=== PATIENT | female | born 1995 | race Caucasian/White ===

== ENCOUNTER 2016-07-12 21:00 | Emergency (ER) | payer OTHER ==
[2016-07-12] MEDS ORDERED: Phenergan 25 MG INJ IV ONE (22:51)
[2016-07-12] MEDS ORDERED: Sodium Chloride 0.9% 1000 ML 1,000 ML IV STA (22:51)
[2016-07-12] MEDS ORDERED: Dulcolax 10 MG SUPP PR ONE (22:52)
[2016-07-12] MEDS ORDERED: CITROMA 296 ML PO ONE (22:52)
[2016-07-12] MEDS ORDERED: MILK OF MAGNESIA 30 ML PO ONE (22:52)
--- NOTE | 2016-07-12 22:58 | ERPHSYRPT ---
- History of Present Illness Time Seen by Provider: 07/12/16 22:45 Historian: patient, family (MOM) Exam Limitations: no limitations Patient Subjective Stated Complaint: pt states she has not had a good bm in 3 weeks, states that there have been approx 7 times in the last 3 weeks that she has had a very small bm. c/o pain in her lt side below ribs intermittently since saturday, migraine x1 week, n/v Triage Nursing Assessment: pt alert and oriented, answers questions approp. pt ambulatory with steady gait noted. skin pink warm and dry. respirations nonlabored with lungs cta. abd soft and nontender, bowel sounds present and hypo. Physician History: PT STATES HER LAST BM WAS 3 WEEKS AGO AND HAS VOMITED X10 SINCE 0500 TODAY WITHOUT BLOOD. PT ALSO C/O INTERMITTENT PAIN UNDER HER LEFT RIBS FOR THE PAST 5 DAYS AND MIGRAINE HEADACHES FOR THE PAST WEEK. PT HAS HAD DIFFICULTY WITH CONSTIPATION HER WHOLE LIFE. PT HAD A NORMAL EGD 3 YEARS AGO AND A NORMAL CT ABDOMEN/PELVIS 4 MONTHS AGO EXCEPT FOR CONSTIPATION. Allergies/Adverse Reactions: No Known Drug Allergies Allergy (Verified 07/12/16 22:37) Home Medications: Polyethylene Glycol 3350 17 gm [Miralax Powder 17GM PACKET] 17 gm PO DAILY [History] Hx Tetanus, Diphtheria Vaccination/Date Given: No Hx Influenza Vaccination/Date Given: No Hx Pneumococcal Vaccination/Date Given: No Immunizations Up to Date: No - Review of Systems Constitutional: No Fever Cardiac: Other (PAIN BELOW LEFT RIBS) Abdominal/Gastrointestinal: Vomiting, Constipation Neurological: Headache All Other Systems: Reviewed and Negative - Past Medical History Pertinent Past Medical History: No Neurological History: Other GI Medical History: Other Other Medical History: HAS HISTORY OF HEADACHES HAS BEEN WORKED UP FOR STOMACH PROBLEMS - Past Surgical History Past Surgical History: No Other Surgical History: endoscopy to check gastric samples. (Pt states I have a history of when I eat I get sick.) pt states unknown results - Social History Smoking Status: Current every day smoker How long have you smoked: 4years Exposure to second hand smoke: No Drug Use: none Patient Lives Alone: No - Female History Hx Last Menstrual Period: 2 weeks ago - Nursing Vital Signs Nursing Vital Signs: Initial Vital Signs Temperature 98.3 F Temperature Source Oral Pulse Rate 88 Respiratory Rate 18 Blood Pressure [] 122/63 Pain Intensity 4 - Physical Exam General Appearance: alert Eye Exam: PERRL/EOMI Ears, Nose, Throat Exam: pharynx normal, moist mucous membranes Neck Exam: normal inspection Respiratory Exam: lungs clear Cardiovascular Exam: normal heart sounds Gastrointestinal/Abdomen Exam: soft, normal bowel sounds Back Exam: normal range of motion Extremity Exam: normal inspection, No pedal edema Neurologic Exam: alert, cooperative Skin Exam: warm, dry SpO2 Interpretation: normal SpO2: 98 Oxygen Delivery: Room Air - Course Nursing assessment & vital signs reviewed: Yes - CT Exams Abdomen/Pelvis CT Interpretation: Tele-radiologist Report (NO ACUTE FINDINGS. MILD STOOL RETENTION.) Ordered Tests: Active Orders 24 hr Category Date Time Status IV Insertion STAT Care 07/12/16 22:51 Active ABDOMEN AND PELVIS W/0 CONTRAS [CT] Stat Exams 07/12/16 23:01 Taken AMYLASE Stat Lab 07/12/16 22:58 Completed CBC W DIFF Stat Lab 07/12/16 22:58 Completed CMP Stat Lab 07/12/16 22:58 Completed HCG QUALITATIVE,SERUM Stat Lab 07/12/16 22:58 Completed LIPASE Stat Lab 07/12/16 22:58 Completed MAG [MAGNESIUM] Stat Lab 07/12/16 22:58 Completed UA W/ MICROSCOPIC Stat Lab 07/12/16 23:45 Completed Urine Triage Profile Stat Lab 07/12/16 23:45 Completed Medication Summary Generic Name Dose Route Start Last Admin Trade Name Sosa PRN Reason Stop Dose Admin Ketorolac Tromethamine 30 mg 07/13/16 00:31 Toradol 30 Mg Injection IV 07/13/16 00:32 STAT ONE Discontinued Medications Generic Name Dose Route Start Last Admin Trade Name Freq PRN Reason Stop Dose Admin Bisacodyl 10 mg 07/12/16 22:52 07/12/16 23:49 Dulcolax 10 Mg Supp ID 07/12/16 22:53 10 mg STAT ONE Administration Sodium Chloride 1,000 mls @ 999 mls/hr 07/12/16 22:51 07/12/16 23:18 Sodium Chloride 0.9% 1000 Ml IV 07/12/16 23:51 999 mls/hr .Q1H1M STA Administration Sodium Chloride Confirm 07/12/16 23:12 Sodium Chloride 0.9% 1000 Ml Administered 07/12/16 23:13 Dose 1,000 mls @ ud .ROUTE .STK-MED ONE Magnesium Citrate 296 ml 07/12/16 22:52 07/12/16 23:17 Citroma 296 Ml PO 07/12/16 22:53 296 ml STAT ONE Administration Magnesium Citrate Confirm 07/12/16 23:13 Citroma 296 Ml Administered 07/12/16 23:14 Dose 296 ml .ROUTE .STK-MED ONE Magnesium Hydroxide 60 ml 07/12/16 22:52 07/12/16 23:17 Milk Of Magnesia 30 Ml PO 07/12/16 22:53 60 ml STAT ONE Administration Magnesium Hydroxide Confirm 07/12/16 23:12 Milk Of Magnesia 30 Ml Administered 07/12/16 23:13 Dose 30 ml .ROUTE .STK-MED ONE Magnesium Hydroxide Confirm 07/12/16 23:23 Milk Of Magnesia 30 Ml Administered 07/12/16 23:24 Dose 30 ml .ROUTE .STK-MED ONE Promethazine HCl 12.5 mg 07/12/16 22:51 07/12/16 23:18 Phenergan 25 Mg Inj IV 07/12/16 22:52 12.5 mg STAT ONE Administration Promethazine HCl Confirm 07/12/16 23:12 Phenergan 25 Mg Inj Administered 07/12/16 23:13 Dose 25 mg .ROUTE .STK-MED ONE Lab/Rad Data: Laboratory Result Diagrams 07/12/16 22:58 07/12/16 22:58 Laboratory Results 07/12/16 07/12/16 07/12/16 Range/Units 23:45 23:45 22:58 WBC (4.0-10.5) K/mm3 RBC (4.1-5.4) M/mm3 Hgb (12.0-16.0) gm/dl Hct (35-47) % MCV (78-100) fl MCH (26-32) pg MCHC (32-36) g/dl RDW (11.5-14.0) % Plt Count (150-450) K/mm3 MPV (6-9.5) fl Gran % (36.0-66.0) % Lymphocytes % (24.0-44.0) % Monocytes % (0.0-12.0) % Eosinophils % (0.00-5.0) % Basophils % (0.0-0.4) % Basophils # (0-0.4) Sodium (136-145) mEq/L Potassium (3.5-5.1) mEq/L Chloride (98-107) mEq/L Carbon Dioxide (21-32) mEq/L Anion Gap (5-15) MEQ/L BUN (9-20) mg/dL Creatinine (0.55-1.30) mg/dl Estimated GFR ML/MIN Glucose (70-110) MG/DL Calcium (8.5-10.1) mg/dL Magnesium (1.8-2.4) mg/dL Total Bilirubin (0.2-1.0) mg/dL AST (15-37) U/L ALT (12-78) U/L Alkaline Phosphatase (46-116) U/L Serum Total Protein (6.4-8.2) gm/dL Albumin (3.4-5.0) g/dL Amylase (25-115) U/L Lipase (73-393) U/L Serum , Qual NEGATIVE (Negative) Ur Collection Type CLEAN CATCH Urine Color DARK YELLOW (YELLOW) Urine Appearance SLIGHTLY CLOUDY (CLEAR) Urine pH 7.0 (5-6) Ur Specific [place] 1.020 (1.005-1.025) Urine Protein 30 (Negative) Urine Glucose (UA) NEGATIVE (NEGATIVE) mg/dL Urine Ketones NEGATIVE (NEGATIVE) Urine Nitrite NEGATIVE (NEGATIVE) Urine Bilirubin NEGATIVE (NEGATIVE) Urine Urobilinogen 0.2 (0-1) mg/dL Urine WBC (Auto) TRACE (NEGATIVE) Urine RBC (Auto) NEGATIVE (0-5) Shola/ul Urine Microscopic WBC 0-2 (0-5) /HPF Ur Epithelial Cells FEW (FEW) /HPF Urine Bacteria FEW (NEGATIVE) /HPF Urine Mucus SLIGHT (NEGATIVE) /HPF Urine Opiates Level NEG. (NEGATIVE) Ur Methadone NEG. (NEGATIVE) Urine Barbiturates NEG. (NEGATIVE) Ur Phencyclidine (PCP) NEG. (NEGATIVE) Urine Amphetamine NEG. (NEGATIVE) U Benzodiazepine Level NEG. (NEGATIVE) Urine Cocaine NEG. (NEGATIVE) Urine Marijuana (THC) POS. (NEGATIVE) Specimen Received 07/12/16:2340 07/12/16 07/12/16 Range/Units 22:58 22:58 WBC 14.0 H (4.0-10.5) K/mm3 RBC 5.38 (4.1-5.4) M/mm3 Hgb 14.9 (12.0-16.0) gm/dl Hct 45.7 (35-47) % MCV 84.9 (78-100) fl MCH 27.7 (26-32) pg MCHC 32.6 (32-36) g/dl RDW 13.4 (11.5-14.0) % Plt Count 414 (150-450) K/mm3 MPV 11.7 H (6-9.5) fl Gran % 63.4 (36.0-66.0) % Lymphocytes % 25.9 (24.0-44.0) % Monocytes % 8.9 (0.0-12.0) % Eosinophils % 1.4 (0.00-5.0) % Basophils % 0.4 (0.0-0.4) % Basophils # 0.06 (0-0.4) Sodium 142 (136-145) mEq/L Potassium 4.0 (3.5-5.1) mEq/L Chloride 104 (98-107) mEq/L Carbon Dioxide 28.1 (21-32) mEq/L Anion Gap 13.6 (5-15) MEQ/L BUN 14 (9-20) mg/dL Creatinine 1.04 (0.55-1.30) mg/dl Estimated GFR > 60 ML/MIN Glucose 90 (70-110) MG/DL Calcium 9.1 (8.5-10.1) mg/dL Magnesium 2.0 (1.8-2.4) mg/dL Total Bilirubin 0.2 (0.2-1.0) mg/dL AST 10 L (15-37) U/L ALT 20 (12-78) U/L Alkaline Phosphatase 71 (46-116) U/L Serum Total Protein 7.4 (6.4-8.2) gm/dL Albumin 4.0 (3.4-5.0) g/dL Amylase 30 (25-115) U/L Lipase 101 (73-393) U/L Serum , Qual (Negative) Ur Collection Type Urine Color (YELLOW) Urine Appearance (CLEAR) Urine pH (5-6) Ur Specific [place] (1.005-1.025) Urine Protein (Negative) Urine Glucose (UA) (NEGATIVE) mg/dL Urine Ketones (NEGATIVE) Urine Nitrite (NEGATIVE) Urine Bilirubin (NEGATIVE) Urine Urobilinogen (0-1) mg/dL Urine WBC (Auto) (NEGATIVE) Urine RBC (Auto) (0-5) Shola/ul Urine Microscopic WBC (0-5) /HPF Ur Epithelial Cells (FEW) /HPF Urine Bacteria (NEGATIVE) /HPF Urine Mucus (NEGATIVE) /HPF Urine Opiates Level (NEGATIVE) Ur Methadone (NEGATIVE) Urine Barbiturates (NEGATIVE) Ur Phencyclidine (PCP) (NEGATIVE) Urine Amphetamine (NEGATIVE) U Benzodiazepine Level (NEGATIVE) Urine Cocaine (NEGATIVE) Urine Marijuana (THC) (NEGATIVE) Specimen Received - Departure Time of Disposition: 00:32 Departure Disposition: Home Clinical Impression: VOMITING, CONSTIPATION, MIGRAINE Condition: Fair Critical Care Time: No Instructions: Vomiting -- Adult, Migraine, Constipation Additional Instructions: FOLLOW UP WITH PRIVATE DOCTOR TOMORROW. Prescriptions: Promethazine HCl 25 mg [Phenergan 25 mg] 25 mg PO Q4H PRN PRN #14 tablet PRN Reason: Nausea/Vomiting
[2016-07-12 23:05] LABS: BASOPHIL % 0.4 % (0.0-0.4); Eosinophil % 1.4 % (0.00-5.0); Granulocytes % 63.4 % (36.0-66.0); Lymphocytes % 25.9 % (24.0-44.0); Mean Cell Volume 84.9 fl (78-100); Mean Corpuscular Hemoglobin 27.7 pg (26-32); Mean Platelet Volume 11.7 fl (6-9.5); Monocytes % 8.9 % (0.0-12.0); Platelet Count 414 K/mm3 (150-450); Red Blood Count 5.38 M/mm3 (4.1-5.4); Red Cell Distribution Width 13.4 % (11.5-14.0)
[2016-07-12] MEDS ORDERED: Phenergan 25 MG INJ ONE (23:12)
[2016-07-12] MEDS ORDERED: MILK OF MAGNESIA 30 ML ONE ×2 (23:12→23:23)
[2016-07-12] MEDS ORDERED: Sodium Chloride 0.9% 1000 ML 1,000 ML ONE (23:12)
[2016-07-12] MEDS ORDERED: CITROMA 296 ML ONE (23:13)
[2016-07-12 23:27] LABS: ALKALINE PHOSPHATASE 71 U/L (46-116); ANION GAP 13.6 MEQ/L (5-15); BILIRUBIN,TOTAL 0.2 mg/dL (0.2-1.0); BLOOD UREA NITROGEN 14 mg/dL (9-20); CHLORIDE 104 mEq/L (98-107); Carbon Dioxide 28.1 mEq/L (21-32); Glucose 90 MG/DL (70-110); LIPASE 101 U/L (73-393); SGOT/AST 10 U/L (15-37); SGPT/ALT 20 U/L (12-78); SODIUM 142 mEq/L (136-145); Total Protein 7.4 gm/dL (6.4-8.2)
[2016-07-12 23:36] VITALS: PULSE 88
[2016-07-13 00:08] LABS: Collection Type CLEAN CATCH
[2016-07-13 00:09] LABS: Bacteria FEW /HPF (NEGATIVE); COMPLETE URINE MICROSCOPIC? YES; Epithelial Cells FEW /HPF (FEW); Mucus SLIGHT /HPF (NEGATIVE); WBC 0-2 /HPF (0-5)
[2016-07-13] MEDS ORDERED: TORAdol 30 mg Injection IV ONE (00:31)
[2016-07-13] MEDS ORDERED: TORAdol 30 mg Injection ONE (00:47)
[2016-07-13 00:51] VITALS: BP 116/70; O2SAT 96
--- NOTE | 2016-07-13 09:47 | XRAY ---
Indication: Left upper abdominal pain and constipation. Multiple contiguous axial images obtained through the abdomen and pelvis without contrast as ordered. Comparison: March 30, 2015. Lung bases remain clear. Heart is not enlarged. Noncontrasted stomach and bowel loops appear nonobstructed. Minimal scattered colonic fecal debris. Again normal appendix. No free fluid/air. Remaining liver, pancreas, spleen, adrenal glands, kidneys, ureters, bladder, uterus, ovaries, and aorta appear unremarkable for noncontrast exam. Osseous structures intact. Impression: 1. Minimal scattered colonic fecal debris without obstruction. 3. No new/acute intra-abdominal/pelvic abnormalities on this noncontrast exam. Comment: Preliminary interpretation was made by [facility]. No critical discrepancy. CT DI 21.63
== END 2016-07-13 01:12 | disposition home or self-care (01) ==
LOC: ED 21:00
DX: R11.10 Vomiting, unspecified (principal); K59.00 Constipation, unspecified; G43.909 Migraine, unspecified, not intractable, without status migrainosus; R07.89 Other chest pain
CPT/HCPCS: 36000; 36415; 74176; 80053; 80307; 81000; 81002; 82150; 83690; 83735; 84703; 85025; 96360; 96374; 96375; 99284; J1885; J2550; A9270-GY

== ENCOUNTER 2016-08-30 14:42 | Emergency (ER) | payer OTHER ==
[2016-08-30 14:54] VITALS: O2SAT 98
--- NOTE | 2016-08-30 15:05 | ERPHSYRPT ---
- History of Present Illness Time Seen by Provider: 08/30/16 14:57 Source: patient Exam Limitations: no limitations Patient Subjective Stated Complaint: PT IS 7 WEEKS AND STARTED SPOTTING TODAY AND CRAMPING ON AND OFF FOR 7 WEEKS. Triage Nursing Assessment: PT WALKED INTO ER. SKIN IS PINK WARM AND DRY. RESPIRATIONS ARE EVEN AND UNLABORED. Physician History: PT. IS A AT 7 WEEKS GA WITH LOWER ABDOMINAL CRAMPINESS AND VAGINAL BLEEDING. STATES SOME SPOTTING WITH MINIMAL BLEEDING TODAY. ALSO WITH URINARY FREQUENCY/DYSURIA WELL. ALSO STATES WHITISH VAGINAL DISCHARGE BUT NO TRAUMA OR INJURY TO ABDOMEN/PELVIS AREA. PT WITH U/D 2 WEEKS AGO FOR SIMILAR SYMPTOMS AND HAD IUP AT THAT TIME. Timing/Duration: today Activites at Onset: other (STANDING) Quality: other (CRAMPY) Onset Location: pelvic pain Pain Radiation: none Severity of Pain-Max: mild Severity of Pain-Current: mild Prior abdominal problems: similar symptoms Sexual intercourse history: single partner Modifying Factors: Improves With: nothing Associated Symptoms: abdominal pain, dysuria, urinary frequency, , vaginal discharge, No fever, No chills, No nausea, No vomiting Allergies/Adverse Reactions: No Known Drug Allergies Allergy (Verified 07/12/16 22:37) Home Medications: Polyethylene Glycol 3350 17 gm [Miralax Powder 17GM PACKET] 17 gm PO DAILY [History] Hx Tetanus, Diphtheria Vaccination/Date Given: Yes (UNKNOWN) Hx Influenza Vaccination/Date Given: No Hx Pneumococcal Vaccination/Date Given: No - Review of Systems Constitutional: No Fever, No Chills Eyes: No Symptoms Ears, Nose, & Throat: No Symptoms Respiratory: No Symptoms, No Cough, No Dyspnea Cardiac: No Symptoms, No Chest Pain, No Edema, No Syncope Abdominal/Gastrointestinal: Abdominal Pain, No Nausea, No Vomiting, No Diarrhea , No Melena, No Appetite Changes Genitourinary Symptoms: Dysuria, , Vaginal Bleeding, Vaginal Discharge , No Hematuria Musculoskeletal: No Symptoms, No Back Pain, No Neck Pain Skin: No Symptoms, No Rash Neurological: No Symptoms, No Dizziness, No Focal Weakness, No Sensory Changes Psychological: No Symptoms Endocrine: No Symptoms All Other Systems: Reviewed and Negative - Past Medical History Pertinent Past Medical History: No Neurological History: Other GI Medical History: Other Other Medical History: HAS HISTORY OF HEADACHES HAS BEEN WORKED UP FOR STOMACH PROBLEMS - Past Surgical History Past Surgical History: No Neuro Surgical History: No Pertinent History Cardiac: No Pertinent History Respiratory: No Pertinent History Gastrointestinal: No Pertinent History Genitourinary: No Pertinent History Musculoskeletal: No Pertinent History Female Surgical History: No Pertinent History Other Surgical History: endoscopy to check gastric samples. (Pt states I have a history of when I eat I get sick.) pt states unknown results - Social History Smoking Status: Current every day smoker How long have you smoked: 5 Exposure to second hand smoke: Yes Drug Use: none Patient Lives Alone: No - Female History Expected Date of Delivery: 04/17/17 - Nursing Vital Signs Nursing Vital Signs: Initial Vital Signs Temperature 97.5 F Temperature Source Oral Pulse Rate 86 Respiratory Rate 18 Blood Pressure [Right Arm] 140/70 Pain Intensity 0 - Physical Exam General Appearance: no apparent distress, alert Eye Exam: PERRL/EOMI, eyes nml inspection Ears, Nose, Throat Exam: normal ENT inspection, TMs normal, pharynx normal, moist mucous membranes Neck Exam: normal inspection, non-tender, supple, full range of motion Respiratory Exam: normal breath sounds, lungs clear, No respiratory distress Cardiovascular Exam: regular rate/rhythm, normal heart sounds, normal peripheral pulses Gastrointestinal/Abdomen Exam: soft, normal bowel sounds, No tenderness, No distention, No mass Pelvic Exam: normal external exam, vaginal discharge (WHITISH), other (MINIMAL BLEEDING NOTED), No cervical motion tenderness, No vaginal bleeding Rectal Exam: deferred Back Exam: normal inspection, normal range of motion, No CVA tenderness, No vertebral tenderness Extremity Exam: normal inspection, normal range of motion, pelvis stable Neurologic Exam: alert, oriented x 3, cooperative, resident care technician II-XII nml as tested, normal mood/affect, sensation nml, No motor deficits Skin Exam: normal color, warm, dry Lymphatic Exam: No adenopathy SpO2: 98 Oxygen Delivery: Room Air - Course Nursing assessment & vital signs reviewed: Yes Ordered Tests: Active Orders 24 hr Category Date Time Status Cath for Specimen-Straight STAT Care 08/30/16 15:08 Active OB <14 WKS 1ST GESTATION [US] Stat Exams 08/30/16 15:09 Taken BMP Stat Lab 08/30/16 15:24 Received CBC W DIFF Stat Lab 08/30/16 15:24 Completed HCG, Quantitative (Inhouse) Stat Lab 08/30/16 15:24 Received UA Stat Lab 08/30/16 15:08 Completed Wet Prep Stat Lab 08/30/16 15:09 Completed Lab/Rad Data: Laboratory Result Diagrams 08/30/16 15:24 Laboratory Results 08/30/16 08/30/16 08/30/16 Range/Units 15:24 15:09 15:08 WBC 13.1 H (4.0-10.5) K/mm3 RBC 4.52 (4.1-5.4) M/mm3 Hgb 12.5 (12.0-16.0) gm/dl Hct 38.1 (35-47) % MCV 84.3 (78-100) fl MCH 27.7 (26-32) pg MCHC 32.8 (32-36) g/dl RDW 13.1 (11.5-14.0) % Plt Count 358 (150-450) K/mm3 MPV 11.1 H (6-9.5) fl Gran % 71.9 H (36.0-66.0) % Lymphocytes % 19.9 L (24.0-44.0) % Monocytes % 6.2 (0.0-12.0) % Eosinophils % 1.7 (0.00-5.0) % Basophils % 0.3 (0.0-0.4) % Basophils # 0.04 (0-0.4) Ur Collection Type CCMS Urine Color YELLOW (YELLOW) Urine Appearance CLEAR (CLEAR) Urine pH 5.5 (5-6) Ur Specific [place] >=1.030 (1.005-1.025) Urine Protein NEGATIVE (Negative) Urine Glucose (UA) NEGATIVE (NEGATIVE) mg/dL Urine Ketones NEGATIVE (NEGATIVE) Urine Nitrite NEGATIVE (NEGATIVE) Urine Bilirubin NEGATIVE (NEGATIVE) Urine Urobilinogen 0.2 (0-1) mg/dL Urine WBC (Auto) NEGATIVE (NEGATIVE) Urine RBC (Auto) NEGATIVE (0-5) Shola/ul WBC (Wet Prep) Few RBC (Wet Prep) Rare Epi Cells (Wet Prep) Rare Bacteria (Wet Prep) Few Clue Cells (Wet Prep) None Seen Trichomonas (Wet Prep) None Seen Budding Yeast (Wet Prp) None Seen Specimen Received 08-30-16 1521 - Progress Progress: improved Progress Note: 08/30/16 15:50 PT RESTING COMFORTABLY. PELVIC US SHOWED A 7+ IUP WITH +HR. 08/30/16 15:51 Blood Culture(s) Obtained: No Antibiotics given: No Counseled pt/family regarding: lab results, diagnosis, rad results - Departure Time of Disposition: 15:52 Departure Disposition: Home Clinical Impression: Threatened Condition: Stable Critical Care Time: No Instructions: Threatened Additional Instructions: REST, NO HEAVY LIFTING OR STRENUOUS ACTIVITY RETURN FOR WORSE ABDOMINAL PAIN, BLEEDING, FEVER, DIZZINESS OR ANY PROBLEMS. FOLLOW UP WITH NETWORK RELAY TESTER SCHEDULED
[2016-08-30 15:19] LABS: Bacteria Few; Clue Cells None Seen
[2016-08-30 15:20] LABS: Collection Type CCMS
[2016-08-30 15:20] LABS: Trichomonas None Seen; Yeast None Seen
[2016-08-30 15:21] LABS: COMPLETE URINE MICROSCOPIC? NO; Ph 5.5 (5-6)
[2016-08-30 15:29] LABS: BASOPHIL % 0.3 % (0.0-0.4); Eosinophil % 1.7 % (0.00-5.0); Granulocytes % 71.9 % (36.0-66.0); Lymphocytes % 19.9 % (24.0-44.0); Mean Cell Volume 84.3 fl (78-100); Mean Corpuscular Hemoglobin 27.7 pg (26-32); Mean Platelet Volume 11.1 fl (6-9.5); Monocytes % 6.2 % (0.0-12.0); Platelet Count 358 K/mm3 (150-450); Red Blood Count 4.52 M/mm3 (4.1-5.4); Red Cell Distribution Width 13.1 % (11.5-14.0); White Blood Count 13.1 K/mm3 (4.0-10.5)
[2016-08-30 16:07] VITALS: BP 138/62; PULSE 78
--- NOTE | 2016-08-30 16:11 | XRAY ---
Indication: Spotting. Two-dimensional transvaginal early OB ultrasound performed. Comparison: None There is a single intrauterine gestational sac with presence of a single pole. The mean crown-rump length measures 1.46 cm corresponding to 7 weeks 6 days. heart rate 156 bpm. No abnormal subchorionic fluid collection. Left and right ovaries sonographically unremarkable. No suspicious adnexal mass or free fluid. Impression: Single viable intrauterine measuring 7 weeks 6 days. Expected date confinement is April 12, 2017. Nothing acute.
[2016-08-30 16:16] LABS: ANION GAP 13.3 MEQ/L (5-15); BLOOD UREA NITROGEN 8 mg/dL (9-20); CHLORIDE 104 mEq/L (98-107); Carbon Dioxide 26.2 mEq/L (21-32); Glucose 102 MG/DL (70-110); HCG, Quantitative (Inhouse) 59838 IU/L (0-6); Potassium 3.7 mEq/L (3.5-5.1); SODIUM 140 mEq/L (136-145)
[2016-08-30 16:44] LABS: CHLAMYDIA DNA NEGATIVE
== END 2016-08-30 16:01 | disposition home or self-care (01) ==
LOC: ED 14:42
DX: O20.0 Threatened abortion (principal)
CPT/HCPCS: 36415; 76801; 80048; 81002; 84702; 85025; 87210; 87490; 87590; 99284; P9612

== ENCOUNTER 2016-09-20 18:40 | Emergency (ER) | payer OTHER ==
[2016-09-20 18:48] VITALS: O2SAT 98
[2016-09-20 19:06] VITALS: BP 140/84; PULSE 88
[2016-09-20] MEDS ORDERED: Sodium Chloride 0.9% 1000 ML 1,000 ML IV STA (19:14)
[2016-09-20] MEDS ORDERED: Sodium Chloride 0.9% 1000 ML 1,000 ML ONE (19:25)
[2016-09-20 19:30] LABS: BASOPHIL % 0.3 % (0.0-0.4); Granulocytes % 78.7 % (36.0-66.0); Lymphocytes % 14.5 % (24.0-44.0); Mean Cell Volume 84.3 fl (78-100); Mean Corpuscular Hemoglobin 28.4 pg (26-32); Monocytes % 5.5 % (0.0-12.0); Platelet Count 363 K/mm3 (150-450); Red Blood Count 4.72 M/mm3 (4.1-5.4); Red Cell Distribution Width 13.2 % (11.5-14.0); White Blood Count 16.6 K/mm3 (4.0-10.5)
--- NOTE | 2016-09-20 19:30 | ERPHSYRPT ---
- History of Present Illness Time Seen by Provider: 09/20/16 19:06 Source: patient Exam Limitations: no limitations Patient Subjective Stated Complaint: syncope Triage Nursing Assessment: states had been standing for 10 min and nect thing she was on the floor. fell back and hit head on floor or deep freeze. on arrival , c/o pain to post head. small hematoma noted. pupils oj. skin warm and dry. states she has syncope episodes with no etiology but ' happening more now that i 'm ' 11 weeks Physician History: ABOUT 1 HOUR AGO AT HOME PT WAS STANDING IN THE KITCHEN AND HAD A SYNCOPAL EPISODE FALLING ON LINOLEUM HITTING THE BACK OF HER HEAD WITH RESULTANT HEADACHE AND NECK PAIN. PT ALSO C/O LEFT ANTERIOR CHEST PAIN LAST NIGHT LASTING 1 HOUR. PT STATES SHE IS 10.5 WEEKS BUT HAS NO ABDOMINAL PAIN. PT DENIES VOMITING, FEVER, DIARRHEA. REPORTEDLY PT HAS HAD SYNCOPAL EPISODES SINCE SHE WAS 4 YEARS OLD. LAST OB ULTRASOUND WAS ABOUT 2 WEEKS AGO & WNL PER PT. Allergies/Adverse Reactions: No Known Drug Allergies Allergy (Verified 09/20/16 18:49) Home Medications: Polyethylene Glycol 3350 17 gm [Miralax Powder 17GM PACKET] 17 gm PO DAILY PRN PRN 09/20/16 [History] Vits W-Ca,Fe,FA(<1Mg) [] 1 each PO DAILY 09/20/16 [History] Hx Tetanus, Diphtheria Vaccination/Date Given: Yes Hx Influenza Vaccination/Date Given: No Hx Pneumococcal Vaccination/Date Given: No Immunizations Up to Date: Yes - Review of Systems Constitutional: No Fever Respiratory: No Dyspnea Cardiac: Chest Pain Abdominal/Gastrointestinal: No Abdominal Pain Musculoskeletal: Neck Pain Neurological: Headache, Other (SYNCOPE) All Other Systems: Reviewed and Negative - Past Medical History Pertinent Past Medical History: Yes Neurological History: Other GI Medical History: Other Psycho-Social History: Depression Other Medical History: HAS HISTORY OF HEADACHES HAS BEEN WORKED UP FOR STOMACH PROBLEMS - Past Surgical History Past Surgical History: No Neuro Surgical History: No Pertinent History Cardiac: No Pertinent History Respiratory: No Pertinent History Gastrointestinal: No Pertinent History Genitourinary: No Pertinent History Musculoskeletal: No Pertinent History Female Surgical History: No Pertinent History Other Surgical History: endoscopy to check gastric samples. (Pt states I have a history of when I eat I get sick.) pt states unknown results - Social History Smoking Status: Current every day smoker How long have you smoked: 5 Exposure to second hand smoke: Yes Drug Use: none Patient Lives Alone: No - Female History Expected Date of Delivery: 04/12/17 - Nursing Vital Signs Nursing Vital Signs: Initial Vital Signs Temperature 98.1 F Temperature Source Oral Pulse Rate 88 Respiratory Rate 16 Blood Pressure [] 140/84 Pain Intensity 4 - Physical Exam General Appearance: alert Eye Exam: PERRL/EOMI, eyes nml inspection Ears, Nose, Throat Exam: TMs normal, pharynx normal, moist mucous membranes Neck Exam: other (MILD POSTERIOR NECK TENDERNESS), No carotid bruit Respiratory Exam: lungs clear Cardiovascular Exam: normal heart sounds Gastrointestinal/Abdomen Exam: soft, normal bowel sounds, No tenderness Back Exam: normal range of motion, No vertebral tenderness Extremity Exam: normal inspection, normal range of motion, No pedal edema Neurologic Exam: alert, cooperative, ham stripper II-XII nml as tested, sensation nml, No motor deficits Skin Exam: abrasion (1/2 CM ABRASION ON LEFT UPPER ASPECT OF OCCIPUT WITH MILD EDEMA AND TENDERNESS.) SpO2 Interpretation: normal SpO2: 98 Oxygen Delivery: Room Air - Course Nursing assessment & vital signs reviewed: Yes EKG Interpreted by Me: RATE ([id number]), Sinus Rhythm, NORMAL AXIS, NORMAL INTERVALS - CT Exams Head CT Interpretation: Tele-radiologist Report (NORMAL HEAD/BRAIN CT.) Cervical Spine CT Interpretation: Tele-radiologist Report (NORMAL CERVICAL SPINE CT) Ordered Tests: Active Orders 24 hr Category Date Time Status Manager Maintenance STAT Care 09/20/16 19:14 Active EKG-ER Only STAT Care 09/20/16 19:14 Active IV Insertion STAT Care 09/20/16 19:14 Active Pulse Oximetry (ED) STAT Care 09/20/16 19:14 Active cath [Cath for Specimen-Straight] STAT Care 09/20/16 19:52 Active CERVICAL SPINE WO CONTRAST [CT] Stat Exams 09/20/16 19:16 Taken HEAD WITHOUT CONTRAST [CT] Stat Exams 09/20/16 19:16 Taken AMYLASE Stat Lab 09/20/16 19:20 Completed CBC W DIFF Stat Lab 09/20/16 19:20 Completed CMP Stat Lab 09/20/16 19:20 Completed LIPASE Stat Lab 09/20/16 19:20 Completed MAGNESIUM Stat Lab 09/20/16 19:20 Completed TROPONIN Q3H Lab 09/20/16 19:20 Completed TROPONIN Q3H Lab 09/20/16 22:15 Ordered TROPONIN Q3H Lab 09/21/16 01:15 Ordered TROPONIN Q3H Lab 09/21/16 04:15 Ordered TROPONIN Q3H Lab 09/21/16 07:15 Ordered UA W/ MICROSCOPIC Stat Lab 09/20/16 19:30 Completed Urine Triage Profile Stat Lab 09/20/16 19:45 Completed Medication Summary Discontinued Medications Generic Name Dose Route Start Last Admin Trade Name Freq PRN Reason Stop Dose Admin Sodium Chloride 1,000 mls @ 999 mls/hr 09/20/16 19:14 09/20/16 19:50 Sodium Chloride 0.9% 1000 Ml IV 09/20/16 20:14 999 mls/hr .Q1H1M STA Administration Sodium Chloride Confirm 09/20/16 19:25 Sodium Chloride 0.9% 1000 Ml Administered 09/20/16 19:26 Dose 1,000 mls @ ud .ROUTE .STK-MED ONE Lab/Rad Data: Laboratory Result Diagrams 09/20/16 19:20 09/20/16 19:20 Laboratory Results 09/20/16 09/20/16 09/20/16 Range/Units 19:45 19:30 19:20 WBC (4.0-10.5) K/mm3 RBC (4.1-5.4) M/mm3 Hgb (12.0-16.0) gm/dl Hct (35-47) % MCV (78-100) fl MCH (26-32) pg MCHC (32-36) g/dl RDW (11.5-14.0) % Plt Count (150-450) K/mm3 MPV (6-9.5) fl Gran % (36.0-66.0) % Lymphocytes % (24.0-44.0) % Monocytes % (0.0-12.0) % Eosinophils % (0.00-5.0) % Basophils % (0.0-0.4) % Basophils # (0-0.4) Sodium (136-145) mEq/L Potassium (3.5-5.1) mEq/L Chloride (98-107) mEq/L Carbon Dioxide (21-32) mEq/L Anion Gap (5-15) MEQ/L BUN (9-20) mg/dL Creatinine (0.55-1.30) mg/dl Estimated GFR ML/MIN Glucose (70-110) MG/DL Calcium (8.5-10.1) mg/dL Magnesium (1.8-2.4) mg/dL Total Bilirubin (0.2-1.0) mg/dL AST (15-37) U/L ALT (12-78) U/L Alkaline Phosphatase (46-116) U/L Troponin I < 0.017 (0.000-0.056) ng/ml Serum Total Protein (6.4-8.2) gm/dL Albumin (3.4-5.0) g/dL Amylase (25-115) U/L Lipase (73-393) U/L Ur Collection Type CATH Urine Color YELLOW (YELLOW) Urine Appearance CLEAR (CLEAR) Urine pH 5.5 (5-6) Ur Specific [place] >=1.030 (1.005-1.025) Urine Protein TRACE (Negative) Urine Glucose (UA) NEGATIVE (NEGATIVE) mg/dL Urine Ketones NEGATIVE (NEGATIVE) Urine Nitrite NEGATIVE (NEGATIVE) Urine Bilirubin NEGATIVE (NEGATIVE) Urine Urobilinogen 0.2 (0-1) mg/dL Urine WBC (Auto) NEGATIVE (NEGATIVE) Urine RBC (Auto) NEGATIVE (0-5) Shola/ul Ur Epithelial Cells FEW (FEW) /HPF Urine Bacteria RARE (NEGATIVE) /HPF Urine Opiates Level NEG. (NEGATIVE) Ur Methadone NEG. (NEGATIVE) Urine Barbiturates NEG. (NEGATIVE) Ur Phencyclidine (PCP) NEG. (NEGATIVE) Urine Amphetamine NEG. (NEGATIVE) U Benzodiazepine Level NEG. (NEGATIVE) Urine Cocaine NEG. (NEGATIVE) Urine Marijuana (THC) POS. (NEGATIVE) Specimen Received 09/20/16:202909/20/16 09/20/16 Range/Units 19:20 19:20 WBC 16.6 H (4.0-10.5) K/mm3 RBC 4.72 (4.1-5.4) M/mm3 Hgb 13.4 (12.0-16.0) gm/dl Hct 39.8 (35-47) % MCV 84.3 (78-100) fl MCH 28.4 (26-32) pg MCHC 33.7 (32-36) g/dl RDW 13.2 (11.5-14.0) % Plt Count 363 (150-450) K/mm3 MPV 11.0 H (6-9.5) fl Gran % 78.7 H (36.0-66.0) % Lymphocytes % 14.5 L (24.0-44.0) % Monocytes % 5.5 (0.0-12.0) % Eosinophils % 1.0 (0.00-5.0) % Basophils % 0.3 (0.0-0.4) % Basophils # 0.05 (0-0.4) Sodium 139 (136-145) mEq/L Potassium 3.7 (3.5-5.1) mEq/L Chloride 103 (98-107) mEq/L Carbon Dioxide 25.7 (21-32) mEq/L Anion Gap 13.7 (5-15) MEQ/L BUN 10 (9-20) mg/dL Creatinine 0.62 (0.55-1.30) mg/dl Estimated GFR > 60 ML/MIN Glucose 90 (70-110) MG/DL Calcium 9.2 (8.5-10.1) mg/dL Magnesium 1.8 (1.8-2.4) mg/dL Total Bilirubin 0.20 (0.2-1.0) mg/dL AST 14 L (15-37) U/L ALT 19 (12-78) U/L Alkaline Phosphatase 60 (46-116) U/L Troponin I (0.000-0.056) ng/ml Serum Total Protein 7.4 (6.4-8.2) gm/dL Albumin 3.4 (3.4-5.0) g/dL Amylase 35 (25-115) U/L Lipase 92 (73-393) U/L Ur Collection Type Urine Color (YELLOW) Urine Appearance (CLEAR) Urine pH (5-6) Ur Specific [place] (1.005-1.025) Urine Protein (Negative) Urine Glucose (UA) (NEGATIVE) mg/dL Urine Ketones (NEGATIVE) Urine Nitrite (NEGATIVE) Urine Bilirubin (NEGATIVE) Urine Urobilinogen (0-1) mg/dL Urine WBC (Auto) (NEGATIVE) Urine RBC (Auto) (0-5) Shola/ul Ur Epithelial Cells (FEW) /HPF Urine Bacteria (NEGATIVE) /HPF Urine Opiates Level (NEGATIVE) Ur Methadone (NEGATIVE) Urine Barbiturates (NEGATIVE) Ur Phencyclidine (PCP) (NEGATIVE) Urine Amphetamine (NEGATIVE) U Benzodiazepine Level (NEGATIVE) Urine Cocaine (NEGATIVE) Urine Marijuana (THC) (NEGATIVE) Specimen Received - Departure Time of Disposition: 20:49 Departure Disposition: Home Clinical Impression: SYNCOPE, HEAD CONTUSION, , CHEST PAIN Condition: Fair Critical Care Time: No Referrals: CACHORRO ERNANDEZ [Primary Care Provider] - Instructions: Fainting, Closed Head Injury, Chest Pain Additional Instructions: FOLLOW UP WITH PRIVATE DOCTOR TOMORROW.
[2016-09-20 19:48] LABS: ALBUMIN 3.4 g/dL (3.4-5.0); ALKALINE PHOSPHATASE 60 U/L (46-116); ANION GAP 13.7 MEQ/L (5-15); BLOOD UREA NITROGEN 10 mg/dL (9-20); CHLORIDE 103 mEq/L (98-107); Carbon Dioxide 25.7 mEq/L (21-32); Glucose 90 MG/DL (70-110); LIPASE 92 U/L (73-393); MAGNESIUM 1.8 mg/dL (1.8-2.4); Potassium 3.7 mEq/L (3.5-5.1); SGOT/AST 14 U/L (15-37); SGPT/ALT 19 U/L (12-78); SODIUM 139 mEq/L (136-145); Total Protein 7.4 gm/dL (6.4-8.2)
[2016-09-20 20:44] LABS: ADD URINE CULTURE? NO (NO); Collection Type CATH; Ph 5.5 (5-6)
[2016-09-20 20:45] LABS: Bacteria RARE /HPF (NEGATIVE); COMPLETE URINE MICROSCOPIC? YES; Epithelial Cells FEW /HPF (FEW)
--- NOTE | 2016-09-21 08:44 | XRAY ---
Indication: Pain following fall. Multiple contiguous axial images obtained through the head without contrast. Comparison: August 18, 2014. Stable normal appearing brain parenchyma, ventricles, and bony calvarium. Visualized paranasal sinuses and mastoid air cells are clear. Impression: Stable normal CT head without contrast exam. Comment: Preliminary interpretation was made by [facility]. No discrepancy. CT DI 49.85
--- NOTE | 2016-09-21 08:47 | XRAY ---
Indication: Pain following fall. Multiple contiguous axial images obtained through the cervical spine. Sagittal and coronal reformatted images obtained. Comparison: None. Axial images negative for acute fracture, suspicious bony lesions, or spinal canal stenosis. Sagittal and coronal reformatted images demonstrates cervical lordotic straightening, positional versus paraspinal muscular spasm. Disc spaces maintained. No acute compression fracture, subluxation, or jumped facet. Normal-appearing craniocervical junction. Visualized noncontrasted soft tissues including lung apices are unremarkable. CT head reported separately. Impression: Lordotic straightening, positional versus paraspinal spasm. Negative acute fracture/subluxation. Comment: Preliminary interpretation was made by [facility]. No critical discrepancy. CT DI 111.98
== END 2016-09-20 21:18 | disposition home or self-care (01) ==
LOC: ED 18:40
DX: O26.891 Other specified pregnancy related conditions, first trimester (principal); R55 Syncope and collapse; S00.93XA Contusion of unspecified part of head, initial encounter; R07.89 Other chest pain; Z3A.10 10 weeks gestation of pregnancy; W18.39XA Other fall on same level, initial encounter
CPT/HCPCS: 36000; 36415; 70450; 72125; 80053; 80307; 81000; 82150; 83690; 83735; 84484; 85025; 93005; 93041; 96360; 99284; P9612

== ENCOUNTER 2017-08-11 23:03 | Emergency (ER) | payer OTHER ==
[2017-08-11 23:24] VITALS: O2SAT 98
[2017-08-11] MEDS ORDERED: Nitrostat 0.4 MG (ED) SL ONE ×2 (23:27→23:41)
[2017-08-11] MEDS ORDERED: Catapres 0.1 MG PO ONE (23:29)
[2017-08-11] MEDS ORDERED: Sodium Chloride 0.9% 1000 ML 1,000 ML IV SCH (23:30)
--- NOTE | 2017-08-11 23:30 | ERPHSYRPT ---
- History of Present Illness Time Seen by Provider: 08/11/17 23:20 Source: patient, family (MOM) Exam Limitations: no limitations Patient Subjective Stated Complaint: headache and high blood pressure x 3 days Triage Nursing Assessment: alert and oriented.. neuro intact. states headache x 3 days and noticed elevated b/p today. staes last time she had high B/P was when she was . neuro intact. atates the pain in all over her head. Physician History: FOR THE PAST 3 DAYS PT HAS HAD ELEVATED BLOOD PRESSURE AND GENERALIZED HEADACHES WITH VOMITING X1 TODAY; DENIES CHEST PAIN, SHORTNESS OF AIR, FEVER. Allergies/Adverse Reactions: No Known Drug Allergies Allergy (Verified 09/20/16 18:49) Home Medications: Polyethylene Glycol 3350 17 gm [Miralax Powder 17GM PACKET] 17 gm PO DAILY PRN PRN 09/20/16 [History] Vits W-Ca,Fe,FA(<1Mg) [] 1 each PO DAILY 09/20/16 [History] Hx Tetanus, Diphtheria Vaccination/Date Given: Yes Hx Influenza Vaccination/Date Given: No Hx Pneumococcal Vaccination/Date Given: No Immunizations Up to Date: (unknown) - Review of Systems Constitutional: Other (ELEVATED BP), No Fever Respiratory: No Dyspnea Cardiac: No Chest Pain Abdominal/Gastrointestinal: Vomiting Neurological: Headache All Other Systems: Reviewed and Negative - Past Medical History Pertinent Past Medical History: Yes Neurological History: Other GI Medical History: Other Psycho-Social History: Depression Other Medical History: HAS HISTORY OF HEADACHES HAS BEEN WORKED UP FOR STOMACH PROBLEMS - Past Surgical History Past Surgical History: Yes Neuro Surgical History: No Pertinent History Cardiac: No Pertinent History Respiratory: No Pertinent History Gastrointestinal: No Pertinent History Genitourinary: No Pertinent History Musculoskeletal: No Pertinent History Female Surgical History: No Pertinent History Other Surgical History: endoscopy to check gastric samples. (Pt states I have a history of when I eat I get sick.) pt states unknown results - Social History Smoking Status: Current every day smoker How long have you smoked: 5 Exposure to second hand smoke: Yes Drug Use: none Patient Lives Alone: No - Female History Hx Last Menstrual Period: 1 week Hx Now: No - Nursing Vital Signs Nursing Vital Signs: Initial Vital Signs Temperature 97.9 F 08/11/17 23:12 Pulse Rate 94 H 08/11/17 23:12 Respiratory Rate 18 08/11/17 23:12 Blood Pressure 173/105 08/11/17 23:12 O2 Sat by Pulse Oximetry 98 08/11/17 23:12 Pain Scale Pain Intensity 0 - Physical Exam General Appearance: alert Eye Exam: PERRL/EOMI Ears, Nose, Throat Exam: TMs normal, pharynx normal, moist mucous membranes Neck Exam: normal inspection Respiratory Exam: lungs clear Cardiovascular Exam: normal heart sounds Gastrointestinal/Abdomen Exam: soft, normal bowel sounds Back Exam: normal range of motion Extremity Exam: normal inspection, No pedal edema Neurologic Exam: alert, cooperative, normal mood/affect, sensation nml, No motor deficits, No motor weakness Skin Exam: warm, dry SpO2 Interpretation: normal SpO2: 98 Oxygen Delivery: Room Air - Course Nursing assessment & vital signs reviewed: Yes - CT Exams Head CT Interpretation: Tele-radiologist Report (NO ACUTE INTRACRANIAL FINDINGS.) Ordered Tests: Active Orders 24 hr Category Date Time Status Clean Catch Urine Specimen STAT Care 08/11/17 23:11 Active IV Insertion STAT Care 08/11/17 23:27 Active HEAD WITHOUT CONTRAST [CT] Stat Exams 08/11/17 23:31 Taken AMYLASE Stat Lab 08/11/17 23:30 Completed CBC W DIFF Stat Lab 08/11/17 23:30 Completed CMP Stat Lab 08/11/17 23:30 Completed HCG QUALITATIVE,SERUM Stat Lab 08/11/17 23:30 Completed LIPASE Stat Lab 08/11/17 23:30 Completed MAGNESIUM Stat Lab 08/11/17 23:30 Completed UA W/RFX UR CULTURE Stat Lab 08/11/17 23:30 Completed Urine Triage Profile Stat Lab 08/11/17 23:30 Completed Medication Summary Generic Name Dose Route Start Last Admin Trade Name Freq PRN Reason Stop Dose Admin Sodium Chloride 1,000 mls @ 250 mls/hr 08/11/17 23:30 08/11/17 23:45 Sodium Chloride 0.9% 1000 Ml IV 09/10/17 23:29 250 mls/hr .Q4H GAURAV Administration Discontinued Medications Generic Name Dose Route Start Last Admin Trade Name Freq PRN Reason Stop Dose Admin Clonidine 0.1 mg 08/11/17 23:29 08/11/17 23:46 Catapres 0.1 Mg PO 08/11/17 23:30 0.1 mg STAT ONE Administration Clonidine Confirm 08/11/17 23:42 Catapres 0.1 Mg Administered 08/11/17 23:43 Dose 0.1 mg .ROUTE .STK-MED ONE Fentanyl Citrate 50 mcg 08/11/17 23:33 08/11/17 23:54 Sublimaze 100 Mcg/2 Ml IV 08/11/17 23:34 50 mcg STAT ONE Administration Fentanyl Citrate Confirm 08/11/17 23:49 Sublimaze 100 Mcg/2 Ml Administered 08/11/17 23:50 Dose 100 mcg .ROUTE .STK-MED ONE Nitroglycerin 0.4 mg 08/11/17 23:27 08/11/17 23:46 Nitrostat 0.4 Mg (Ed) SL 08/11/17 23:28 0.4 mg STAT ONE Administration Nitroglycerin Confirm 08/11/17 23:41 Nitrostat 0.4 Mg (Ed) Administered 08/11/17 23:42 Dose 0.4 mg SL .STK-MED ONE Promethazine HCl 12.5 mg 08/11/17 23:33 08/11/17 23:54 Phenergan 25 Mg Inj IV 08/11/17 23:34 12.5 mg STAT ONE Administration Promethazine HCl Confirm 08/11/17 23:48 Phenergan 25 Mg Inj Administered 08/11/17 23:49 Dose 25 mg .ROUTE .STK-MED ONE Lab/Rad Data: Laboratory Result Diagrams 08/11/17 23:30 08/11/17 23:30 Laboratory Results 08/11/17 08/11/17 08/11/17 Range/Units 23:30 23:30 23:30 WBC 8.9 (4.0-10.5) K/mm3 RBC 4.91 (4.1-5.4) M/mm3 Hgb 12.1 (12.0-16.0) gm/dl Hct 37.8 (35-47) % MCV 77.0 L (78-100) fl MCH 24.6 L (26-32) pg MCHC 32.0 (32-36) g/dl RDW 15.4 H (11.5-14.0) % Plt Count 397 (150-450) K/mm3 MPV 11.7 H (6-9.5) fl Gran % 48.0 (36.0-66.0) % Eos # (Auto) 0.24 (0-0.5) Absolute Lymphs (auto) 3.51 (1.0-4.6) Absolute Monos (auto) 0.86 (0.0-1.3) Lymphocytes % 39.3 (24.0-44.0) % Monocytes % 9.6 (0.0-12.0) % Eosinophils % 2.7 (0.00-5.0) % Basophils % 0.4 (0.0-0.4) % Absolute Granulocytes 4.27 (1.4-6.9) Basophils # 0.04 (0-0.4) Sodium 141 (137-145) mmol/L Potassium 3.7 (3.5-5.1) mmol/L Chloride 106 (98-107) mmol/L Carbon Dioxide 27 (22-30) mmol/L Anion Gap 11.9 (5-15) MEQ/L BUN 14 (7-17) mg/dL Creatinine 0.82 (0.52-1.04) mg/dL Estimated GFR > 60.0 ML/MIN Glucose 103 (74-106) mg/dL Calcium 9.6 (8.4-10.2) mg/dL Magnesium 1.8 (1.6-2.3) mg/dL Total Bilirubin < 0.10 L (0.2-1.3) mg/dL AST 25 (14-36) U/L ALT 51 H (0-35) U/L Alkaline Phosphatase 86 (38-126) U/L Serum Total Protein 6.8 (6.3-8.2) g/dL Albumin 3.7 (3.5-5.0) g/dL Amylase 52 (30-110) U/L Lipase 50 (23-300) U/L Serum , Qual NEGATIVE (Negative) Ur Collection Type Urine Color (YELLOW) Urine Appearance (CLEAR) Urine pH (5-6) Ur Specific [place] (1.005-1.025) Urine Protein (Negative) Urine Ketones (NEGATIVE) Urine Blood (0-5) Shola/ul Urine Nitrite (NEGATIVE) Urine Bilirubin (NEGATIVE) Urine Urobilinogen (0-1) mg/dL Ur Leukocyte Esterase (NEGATIVE) Urine Culture Reflexed (NO) Urine Glucose (NEGATIVE) mg/dL Urine Opiates Level (NEGATIVE) Ur Methadone (NEGATIVE) Urine Barbiturates (NEGATIVE) Ur Phencyclidine (PCP) (NEGATIVE) Urine Amphetamine (NEGATIVE) U Benzodiazepine Level (NEGATIVE) Urine Cocaine (NEGATIVE) Urine Marijuana (THC) (NEGATIVE) Slides for Path Review YES Specimen Received 08/11/17 08/11/17 Range/Units 23:30 23:30 WBC (4.0-10.5) K/mm3 RBC (4.1-5.4) M/mm3 Hgb (12.0-16.0) gm/dl Hct (35-47) % MCV (78-100) fl MCH (26-32) pg MCHC (32-36) g/dl RDW (11.5-14.0) % Plt Count (150-450) K/mm3 MPV (6-9.5) fl Gran % (36.0-66.0) % Eos # (Auto) (0-0.5) Absolute Lymphs (auto) (1.0-4.6) Absolute Monos (auto) (0.0-1.3) Lymphocytes % (24.0-44.0) % Monocytes % (0.0-12.0) % Eosinophils % (0.00-5.0) % Basophils % (0.0-0.4) % Absolute Granulocytes (1.4-6.9) Basophils # (0-0.4) Sodium (137-145) mmol/L Potassium (3.5-5.1) mmol/L Chloride (98-107) mmol/L Carbon Dioxide (22-30) mmol/L Anion Gap (5-15) MEQ/L BUN (7-17) mg/dL Creatinine (0.52-1.04) mg/dL Estimated GFR ML/MIN Glucose (74-106) mg/dL Calcium (8.4-10.2) mg/dL Magnesium (1.6-2.3) mg/dL Total Bilirubin (0.2-1.3) mg/dL AST (14-36) U/L ALT (0-35) U/L Alkaline Phosphatase (38-126) U/L Serum Total Protein (6.3-8.2) g/dL Albumin (3.5-5.0) g/dL Amylase (30-110) U/L Lipase (23-300) U/L Serum , Qual (Negative) Ur Collection Type CLEAN CATCH Urine Color YELLOW (YELLOW) Urine Appearance CLEAR (CLEAR) Urine pH 8.0 (5-6) Ur Specific [place] 1.010 (1.005-1.025) Urine Protein NEGATIVE (Negative) Urine Ketones NEGATIVE (NEGATIVE) Urine Blood NEGATIVE (0-5) Shola/ul Urine Nitrite NEGATIVE (NEGATIVE) Urine Bilirubin NEGATIVE (NEGATIVE) Urine Urobilinogen NORMAL (0-1) mg/dL Ur Leukocyte Esterase NEGATIVE (NEGATIVE) Urine Culture Reflexed NO (NO) Urine Glucose NEGATIVE (NEGATIVE) mg/dL Urine Opiates Level NEGATIVE (NEGATIVE) Ur Methadone NEGATIVE (NEGATIVE) Urine Barbiturates NEGATIVE (NEGATIVE) Ur Phencyclidine (PCP) NEGATIVE (NEGATIVE) Urine Amphetamine NEGATIVE (NEGATIVE) U Benzodiazepine Level NEGATIVE (NEGATIVE) Urine Cocaine NEGATIVE (NEGATIVE) Urine Marijuana (THC) POSITIVE (NEGATIVE) Slides for Path Review Specimen Received 08/11/17 2330 - Departure Time of Disposition: 02:23 Departure Disposition: Home Clinical Impression: HEADACHE, HTN, VOMITING, DEPRESSION Condition: Stable Critical Care Time: No Referrals: DOCTOR,NO FAMILY [Primary Care Provider] - Instructions: Headache, Adult (DC), Malignant Hypertension (DC) Additional Instructions: FOLLOW UP WITH PRIVATE DOCTOR TOMORROW. Prescriptions: Promethazine HCl 25 mg [Phenergan 25 mg] 25 mg PO Q4H PRN PRN #14 tablet PRN Reason: Nausea/Vomiting Promethazine HCl 25 mg [Phenergan 25 mg] 25 mg PO Q4H PRN PRN #14 tablet PRN Reason: Nausea/Vomiting Enalapril Maleate 5 mg [Vasotec 5 MG] 5 mg PO DAILY #30 tablet
[2017-08-11] MEDS ORDERED: Phenergan 25 MG INJ IV ONE (23:33)
[2017-08-11] MEDS ORDERED: SUBLIMAZE 100 MCG/2 ML IV ONE (23:33)
[2017-08-11] MEDS ORDERED: Sodium Chloride 0.9% 1000 ML 1,000 ML ONE (23:42)
[2017-08-11] MEDS ORDERED: Catapres 0.1 MG ONE (23:42)
[2017-08-11] MEDS ORDERED: Phenergan 25 MG INJ ONE (23:48)
[2017-08-11] MEDS ORDERED: SUBLIMAZE 100 MCG/2 ML ONE (23:49)
[2017-08-12 00:31] LABS: BASOPHIL % 0.4 % (0.0-0.4); Basophil (Absolute #) 0.04 (0-0.4); Eosinophil % 2.7 % (0.00-5.0); Eosinophil (Absolute #) 0.24 (0-0.5); Granulocyte Absolute (ANC) 4.27 (1.4-6.9); Hematocrit 37.8 % (35-47); Hemoglobin 12.1 gm/dl (12.0-16.0); Lymphocyte (Absolute #) 3.51 (1.0-4.6); Lymphocytes % 39.3 % (24.0-44.0); Mean Corpuscular Hemoglobin 24.6 pg (26-32); Mean Platelet Volume 11.7 fl (6-9.5); Monocyte (Absolute #) 0.86 (0.0-1.3); Monocytes % 9.6 % (0.0-12.0); Platelet Count 397 K/mm3 (150-450); Red Blood Count 4.91 M/mm3 (4.1-5.4); Red Cell Distribution Width 15.4 % (11.5-14.0); White Blood Count 8.9 K/mm3 (4.0-10.5)
[2017-08-12 00:40] LABS: ALBUMIN 3.7 g/dL (3.5-5.0); ALKALINE PHOSPHATASE 86 U/L (38-126); AMYLASE 52 U/L (30-110); ANION GAP 11.9 MEQ/L (5-15); BILIRUBIN,TOTAL < 0.10 mg/dL (0.2-1.3); BLOOD UREA NITROGEN 14 mg/dL (7-17); CHLORIDE 106 mmol/L (98-107); Calcium 9.6 mg/dL (8.4-10.2); Carbon Dioxide 27 mmol/L (22-30); Creatinine 1 0.82 mg/dL (0.52-1.04); Glucose 103 mg/dL (74-106); LIPASE 50 U/L (23-300); Potassium 3.7 mmol/L (3.5-5.1); SGOT/AST 25 U/L (14-36); SGPT/ALT 51 U/L (0-35); SODIUM 141 mmol/L (137-145); Total Protein 6.8 g/dL (6.3-8.2)
[2017-08-12 00:52] LABS: Amphetamine,Urine NEGATIVE (NEGATIVE); Barbiturate,Urine NEGATIVE (NEGATIVE); Benzodiazepine,Urine NEGATIVE (NEGATIVE); Cocaine,Urine NEGATIVE (NEGATIVE); Methadone,Urine NEGATIVE (NEGATIVE); Opiate,Urine NEGATIVE (NEGATIVE); PCP,Urine NEGATIVE (NEGATIVE); THC,Urine POSITIVE (NEGATIVE)
[2017-08-12 01:11] LABS: Appearance CLEAR (CLEAR); Bilirubin NEGATIVE (NEGATIVE); Blood NEGATIVE Ery/ul (0-5); Glucose NEGATIVE (NEGATIVE); Ketones NEGATIVE (NEGATIVE); Leukocyte Esterase NEGATIVE (NEGATIVE); Nitrite NEGATIVE (NEGATIVE); Protein,Urine Dip NEGATIVE (Negative); Urobilinogen NORMAL mg/dL (0-1)
[2017-08-12 01:42] LABS: Slide Review 1 YES
[2017-08-12 01:56] VITALS: BP 128/74; PULSE 72
--- NOTE | 2017-08-12 09:16 | XRAY ---
Indication: Headache. Multiple contiguous axial images obtained through the head without contrast. Comparison: September 20, 2016. Stable normal appearing brain parenchyma, ventricles, and bony calvarium. Visualized paranasal sinuses and mastoid air cells clear. Impression: Stable normal CT head without contrast exam. Comment: Preliminary interpretation was made by [facility]. No discrepancy. CTDI 71.08
== END 2017-08-12 02:48 | disposition home or self-care (01) ==
LOC: ED 23:03
DX: R51 Headache (principal); R11.10 Vomiting, unspecified; I10 Essential (primary) hypertension; F32.9 Major depressive disorder, single episode, unspecified
CPT/HCPCS: 36000; 36415; 70450; 80053; 80307; 81002; 82150; 83690; 83735; 84703; 85025; 96360; 96374; 96375; 99283; 99284; J2550; J3010; A9270-GY

== ENCOUNTER 2018-01-11 09:34 | Emergency (ER) | payer MEDICAID, OTHER ==
[2018-01-11] MEDS ORDERED: Sodium Chloride 0.9% 1000 ML 1,000 ML IV STA (09:58)
--- NOTE | 2018-01-11 10:03 | ERPHSYRPT ---
- History of Present Illness Time Seen by Provider: 01/11/18 09:54 Historian: patient Exam Limitations: no limitations Patient Subjective Stated Complaint: pt co vomiting, loose stools for 2 days now , with abd pain Triage Nursing Assessment: pt alert, resp easy, skin w/d/p, abd soft ,tender to palpate Physician History: 22-year-old white female arrives with complaint of vomiting, loose stools, pain across the abdomen which begins in the left and radiates across the top to the right, Symptoms since yesterday, Past medical history includes depression, headaches, stomach problems. Past surgical history . Social history marijuana use occasional alcohol use. Tobacco use. Timing/Duration: yesterday Activities at Onset: none Quality: cramping Abdominal Pain Onset Location: other (upper abdomen bilateral) Pain Radiation: no radiation Severity of Pain-Max: moderate Severity of Pain-Current: none Modifying Factors: Improves With: other (patient took MiraLAX) Associated Symptoms: diarrhea, nausea, vomiting, No back, No chest pain, No diaphoresis, No fever/chills, No fatigue, No headache, No heartburn, No loss of appetite, No neck pain, No rash, No shortness of breath, No syncope, No weakness Previous symptoms: no prior history Allergies/Adverse Reactions: No Known Drug Allergies Allergy (Verified 01/11/18 09:50) Home Medications: Polyethylene Glycol 3350 17 gm [Miralax Powder 17GM PACKET] 17 gm PO DAILY PRN PRN 09/20/16 [History] Magnesium Oxide 400 mg [Mag-Ox 400] 400 mg DAILY 01/11/18 [History] Hx Tetanus, Diphtheria Vaccination/Date Given: Yes Hx Influenza Vaccination/Date Given: No Hx Pneumococcal Vaccination/Date Given: No Immunizations Up to Date: Yes - Review of Systems Constitutional: No Fever, No Chills Eyes: No Symptoms Ears, Nose, & Throat: No Symptoms Respiratory: No Cough, No Dyspnea Cardiac: No Chest Pain, No Edema, No Syncope Abdominal/Gastrointestinal: Abdominal Pain, Nausea, Vomiting, Diarrhea, Constipation, No Hematemesis, No Hematochezia, No Melena, No Dysphagia, No Appetite Changes Genitourinary Symptoms: No Dysuria Musculoskeletal: No Back Pain, No Neck Pain Skin: No Rash Neurological: No Dizziness, No Focal Weakness, No Sensory Changes Psychological: No Symptoms Endocrine: No Symptoms All Other Systems: Reviewed and Negative - Past Medical History Pertinent Past Medical History: Yes Neurological History: Other GI Medical History: Other Psycho-Social History: Depression Other Medical History: HAS HISTORY OF HEADACHES HAS BEEN WORKED UP FOR STOMACH PROBLEMS - Past Surgical History Past Surgical History: Yes Neuro Surgical History: No Pertinent History Cardiac: No Pertinent History Respiratory: No Pertinent History Gastrointestinal: No Pertinent History Genitourinary: No Pertinent History Musculoskeletal: No Pertinent History Female Surgical History: No Pertinent History Other Surgical History: endoscopy to check gastric samples. (Pt states I have a history of when I eat I get sick.) pt states unknown results - Social History Smoking Status: Current every day smoker How long have you smoked: 5 Exposure to second hand smoke: Yes Drug Use: marijuana Patient Lives Alone: No - Female History Hx Last Menstrual Period: jan 02 Hx Now: No - Nursing Vital Signs Nursing Vital Signs: Initial Vital Signs Temperature 97.9 F 01/11/18 09:45 Pulse Rate 99 H 01/11/18 09:45 Respiratory Rate 18 01/11/18 09:45 Blood Pressure 151/102 01/11/18 09:45 Pain Scale Pain Intensity 5 - Physical Exam General Appearance: no apparent distress, alert Eye Exam: PERRL/EOMI, eyes nml inspection Ears, Nose, Throat Exam: normal ENT inspection, pharynx normal, moist mucous membranes Neck Exam: normal inspection, non-tender, supple, full range of motion Respiratory Exam: normal breath sounds, lungs clear, No respiratory distress Cardiovascular Exam: regular rate/rhythm, normal heart sounds, normal peripheral pulses, No murmur, No tachycardia Gastrointestinal/Abdomen Exam: soft, No tenderness, No mass Rectal Exam: normal exam, normal rectal tone, No blood Back Exam: normal inspection, normal range of motion, No CVA tenderness, No vertebral tenderness Extremity Exam: normal inspection, normal range of motion, pelvis stable Neurologic Exam: alert, oriented x 3, cooperative, funeral arranger II-XII nml as tested, normal mood/affect, nml cerebellar function, sensation nml, No motor deficits Skin Exam: normal color, warm, dry SpO2 Interpretation: normal (97%) Oxygen Delivery: Room Air - Course Nursing assessment & vital signs reviewed: Yes Ordered Tests: Active Orders 24 hr Category Date Time Status IV Insertion STAT Care 01/11/18 09:58 Active AMYLASE Stat Lab 01/11/18 10:00 Completed CBC W DIFF Stat Lab 01/11/18 10:00 Completed CMP Stat Lab 01/11/18 10:00 Completed CULTURE,URINE Stat Lab 01/11/18 10:30 Received HCG QUALITATIVE,SERUM Stat Lab 01/11/18 10:00 Completed LIPASE Stat Lab 01/11/18 10:00 Completed Occult Blood,Stool Other Stat Lab 01/11/18 10:30 Completed UA W/RFX UR CULTURE Stat Lab 01/11/18 10:30 Completed Medication Summary Discontinued Medications Generic Name Dose Route Start Last Admin Trade Name Jonathanq PRN Reason Stop Dose Admin Sodium Chloride 1,000 mls @ 999 mls/hr 01/11/18 09:58 01/11/18 11:20 Sodium Chloride 0.9% 1000 Ml IV 01/11/18 10:58 Infused .Q1H1M STA Infusion Sodium Chloride Confirm 01/11/18 10:04 Sodium Chloride 0.9% 1000 Ml Administered 01/11/18 10:05 Dose 1,000 mls @ ud .ROUTE .STK-MED ONE Sodium Chloride Confirm 01/11/18 10:42 Sodium Chloride 0.9% 1000 Ml Administered 01/11/18 10:43 Dose 1,000 mls @ ud .ROUTE .STK-MED ONE Promethazine HCl 12.5 mg 01/11/18 10:34 01/11/18 10:44 Phenergan 25 Mg Inj IV 01/11/18 10:35 12.5 mg STAT ONE Administration Promethazine HCl Confirm 01/11/18 10:42 Phenergan 25 Mg Inj Administered 01/11/18 10:43 Dose 25 mg .ROUTE .STK-MED ONE Lab/Rad Data: Laboratory Result Diagrams 01/11/18 10:00 01/11/18 10:00 Laboratory Results 01/11/18 01/11/18 01/11/18 Range/Units 10:30 10:30 10:00 WBC (4.0-10.5) K/mm3 RBC (4.1-5.4) M/mm3 Hgb (12.0-16.0) gm/dl Hct (35-47) % MCV (78-100) fl MCH (26-32) pg MCHC (32-36) g/dl RDW (11.5-14.0) % Plt Count (150-450) K/mm3 MPV (6-9.5) fl Gran % (36.0-66.0) % Eos # (Auto) (0-0.5) Absolute Lymphs (auto) (1.0-4.6) Absolute Monos (auto) (0.0-1.3) Lymphocytes % (24.0-44.0) % Monocytes % (0.0-12.0) % Eosinophils % (0.00-5.0) % Basophils % (0.0-0.4) % Absolute Granulocytes (1.4-6.9) Basophils # (0-0.4) Sodium (137-145) mmol/L Potassium (3.5-5.1) mmol/L Chloride (98-107) mmol/L Carbon Dioxide (22-30) mmol/L Anion Gap (5-15) MEQ/L BUN (7-17) mg/dL Creatinine (0.52-1.04) mg/dL Estimated GFR ML/MIN Glucose (74-106) mg/dL Calcium (8.4-10.2) mg/dL Total Bilirubin (0.2-1.3) mg/dL AST (14-36) U/L ALT (0-35) U/L Alkaline Phosphatase (38-126) U/L Serum Total Protein (6.3-8.2) g/dL Albumin (3.5-5.0) g/dL Amylase (30-110) U/L Lipase (23-300) U/L Serum , Qual NEGATIVE (Negative) Urine Color YELLOW (YELLOW) Urine Appearance TURBID (CLEAR) Urine pH 5.0 (5-6) Ur Specific [place] 1.027 (1.005-1.025) Urine Protein NEGATIVE (Negative) Urine Ketones NEGATIVE (NEGATIVE) Urine Blood NEGATIVE (0-5) Shola/ul Urine Nitrite NEGATIVE (NEGATIVE) Urine Bilirubin NEGATIVE (NEGATIVE) Urine Urobilinogen NORMAL (0-1) mg/dL Ur Leukocyte Esterase TRACE (NEGATIVE) Urine WBC (Auto) 3-5 (0-5) /HPF Urine RBC (Auto) 0-2 (0-2) /HPF U Epithel Cells (Auto) RARE (FEW) /HPF Urine Bacteria (Auto) FEW (NEGATIVE) /HPF Amorphous Crystals MODERATE (NEGATIVE) /HPF Urine Mucus (Auto) MODERATE (NEGATIVE) /HPF Urine Culture Reflexed YES (NO) Urine Glucose NEGATIVE (NEGATIVE) mg/dL Stool Occult Blood NEGATIVE (Negative) Slides for Path Review 01/11/18 01/11/18 Range/Units 10:00 10:00 WBC 8.6 (4.0-10.5) K/mm3 RBC 5.55 H (4.1-5.4) M/mm3 Hgb 14.7 (12.0-16.0) gm/dl Hct 44.6 (35-47) % MCV 80.4 (78-100) fl MCH 26.4 (26-32) pg MCHC 33.0 (32-36) g/dl RDW 14.0 (11.5-14.0) % Plt Count 379 (150-450) K/mm3 MPV 11.6 H (6-9.5) fl Gran % 70.9 H (36.0-66.0) % Eos # (Auto) 0.15 (0-0.5) Absolute Lymphs (auto) 1.38 (1.0-4.6) Absolute Monos (auto) 0.93 (0.0-1.3) Lymphocytes % 16.0 L (24.0-44.0) % Monocytes % 10.8 (0.0-12.0) % Eosinophils % 1.7 (0.00-5.0) % Basophils % 0.6 (0.0-0.4) % Absolute Granulocytes 6.11 (1.4-6.9) Basophils # 0.05 (0-0.4) Sodium 140 (137-145) mmol/L Potassium 4.1 (3.5-5.1) mmol/L Chloride 102 (98-107) mmol/L Carbon Dioxide 26 (22-30) mmol/L Anion Gap 16.3 H (5-15) MEQ/L BUN 12 (7-17) mg/dL Creatinine 0.74 (0.52-1.04) mg/dL Estimated GFR > 60.0 ML/MIN Glucose 103 (74-106) mg/dL Calcium 9.6 (8.4-10.2) mg/dL Total Bilirubin 0.30 (0.2-1.3) mg/dL AST 24 (14-36) U/L ALT 24 (0-35) U/L Alkaline Phosphatase 94 (38-126) U/L Serum Total Protein 7.8 (6.3-8.2) g/dL Albumin 4.6 (3.5-5.0) g/dL Amylase 57 (30-110) U/L Lipase 26 (23-300) U/L Serum , Qual (Negative) Urine Color (YELLOW) Urine Appearance (CLEAR) Urine pH (5-6) Ur Specific [place] (1.005-1.025) Urine Protein (Negative) Urine Ketones (NEGATIVE) Urine Blood (0-5) Shola/ul Urine Nitrite (NEGATIVE) Urine Bilirubin (NEGATIVE) Urine Urobilinogen (0-1) mg/dL Ur Leukocyte Esterase (NEGATIVE) Urine WBC (Auto) (0-5) /HPF Urine RBC (Auto) (0-2) /HPF U Epithel Cells (Auto) (FEW) /HPF Urine Bacteria (Auto) (NEGATIVE) /HPF Amorphous Crystals (NEGATIVE) /HPF Urine Mucus (Auto) (NEGATIVE) /HPF Urine Culture Reflexed (NO) Urine Glucose (NEGATIVE) mg/dL Stool Occult Blood (Negative) Slides for Path Review YES - Progress Progress: improved - Departure Time of Disposition: 11:50 Departure Disposition: Home Clinical Impression: Abdominal pain Qualifiers: Abdominal location: upper abdomen, unspecified Qualified Code(s): R10.10 - Upper abdominal pain, unspecified Vomiting Qualifiers: Vomiting type: unspecified Vomiting Intractability: non-intractable Nausea presence: with nausea Qualified Code(s): R11.2 - Nausea with vomiting, unspecified Diarrhea Qualifiers: Diarrhea type: unspecified type Qualified Code(s): R19.7 - Diarrhea, unspecified Condition: Fair Critical Care Time: No Referrals: DOCTOR,NO FAMILY [Primary Care Provider] - Instructions: Acute Abdomen (Belly Pain), Adult (DC) Additional Instructions: Return home. Plenty of fluids, clear fluids only 24-48 hours if nausea vomiting or abdominal pain. Phenergan 25 mg orally every 4-6 hours as needed for nausea, vomiting or abdominal pain. [place] 5/325 #8 one orally every 4-6 hours as needed for pain. Follow-up with your family doctor if symptoms are worse no better in 48-72 hours or persist longer than one week. Return for acute distress or for severe symptoms. Prescriptions: Hydrocodone/Acetaminophen [[place] 5-325 Tablet] 1 tab PO Q4-6HPRN PRN #8 tablet MDD 6 tablets PRN Reason: Pain Promethazine HCl 25 mg [Phenergan 25 mg] 25 mg PO Q4-6HPRN PRN #12 tablet PRN Reason: nausea, vomiting, abd. pain
[2018-01-11] MEDS ORDERED: Sodium Chloride 0.9% 1000 ML 1,000 ML ONE (10:04)
[2018-01-11 10:21] LABS: BASOPHIL % 0.6 % (0.0-0.4); Basophil (Absolute #) 0.05 (0-0.4); Eosinophil % 1.7 % (0.00-5.0); Eosinophil (Absolute #) 0.15 (0-0.5); Granulocyte Absolute (ANC) 6.11 (1.4-6.9); Granulocytes % 70.9 % (36.0-66.0); Hematocrit 44.6 % (35-47); Hemoglobin 14.7 gm/dl (12.0-16.0); Lymphocyte (Absolute #) 1.38 (1.0-4.6); Mean Cell Volume 80.4 fl (78-100); Mean Platelet Volume 11.6 fl (6-9.5); Monocyte (Absolute #) 0.93 (0.0-1.3); Monocytes % 10.8 % (0.0-12.0); Platelet Count 379 K/mm3 (150-450); Red Blood Count 5.55 M/mm3 (4.1-5.4); White Blood Count 8.6 K/mm3 (4.0-10.5)
[2018-01-11 10:30] LABS: Mean Corpuscular Hemoglobin 26.4 pg (26-32)
[2018-01-11] MEDS ORDERED: Phenergan 25 MG INJ IV ONE (10:34)
[2018-01-11] MEDS ORDERED: Phenergan 25 MG INJ ONE (10:42)
[2018-01-11] MEDS ORDERED: Sodium Chloride 0.9% 1000 ML 0 ML ONE (10:42)
[2018-01-11 10:45] LABS: ALBUMIN 4.6 g/dL (3.5-5.0); ALKALINE PHOSPHATASE 94 U/L (38-126); AMYLASE 57 U/L (30-110); ANION GAP 16.3 MEQ/L (5-15); BLOOD UREA NITROGEN 12 mg/dL (7-17); CHLORIDE 102 mmol/L (98-107); Calcium 9.6 mg/dL (8.4-10.2); Carbon Dioxide 26 mmol/L (22-30); Creatinine 1 0.74 mg/dL (0.52-1.04); Glucose 103 mg/dL (74-106); LIPASE 26 U/L (23-300); Potassium 4.1 mmol/L (3.5-5.1); SGOT/AST 24 U/L (14-36); SGPT/ALT 24 U/L (0-35); SODIUM 140 mmol/L (137-145); Total Protein 7.8 g/dL (6.3-8.2)
[2018-01-11 11:30] LABS: Appearance TURBID (CLEAR); Bilirubin NEGATIVE (NEGATIVE); Blood NEGATIVE Ery/ul (0-5); Glucose NEGATIVE (NEGATIVE); Ketones NEGATIVE (NEGATIVE); Leukocyte Esterase TRACE (NEGATIVE); Nitrite NEGATIVE (NEGATIVE); Protein,Urine Dip NEGATIVE (Negative); Specific Gravity 1.027 (1.005-1.025); Urobilinogen NORMAL mg/dL (0-1)
[2018-01-11 11:46] VITALS: BP 125/84; PULSE 80; O2SAT 98
[2018-01-11 13:42] LABS: Slide Review 1 YES
== END 2018-01-11 11:47 | disposition home or self-care (01) ==
LOC: ED 09:34
DX: R10.10 Upper abdominal pain, unspecified (principal); R11.2 Nausea with vomiting, unspecified; R19.7 Diarrhea, unspecified; F32.9 Major depressive disorder, single episode, unspecified
CPT/HCPCS: 36000; 36415; 80053; 81001; 82150; 82272; 83690; 84703; 85025; 87086; 96360; 96374; 99284; J2550

== ENCOUNTER 2018-06-09 06:05 | Day surgery (SDC) | payer OTHER ==
[2018-06-09] MEDS ORDERED: Lactated Ringers 1,000 ML IV SCH (06:30)
== END 2018-06-09 06:48 | disposition home or self-care (01) ==
LOC: SDC 06:05
PROVIDERS: ATTEND Family Medicine
DX: Z53.09 Procedure and treatment not carried out because of other contraindication (principal)
CPT/HCPCS: 84703; 99211

== ENCOUNTER 2018-06-16 05:50 | Day surgery (SDC) | payer OTHER ==
[2018-06-16] MEDS ORDERED: DIPRIVAN 200 MG/20 ML IV ONE (05:51)
[2018-06-16] MEDS ORDERED: Lactated Ringers 1,000 ML IV SCH (06:30)
[2018-06-16 09:06] VITALS: BP 124/72; PULSE 64; O2SAT 100
--- NOTE | 2018-06-16 10:18 | OP ---
SURGERY DATE/TIME: 06/16/2018 0755 PREOPERATIVE DIAGNOSIS: Rectal bleeding. POSTOPERATIVE DIAGNOSIS: Normal colon. PROCEDURE: Colonoscopy. SURGEON: Dr. Love. ANESTHESIA: MAC. Medications given by anesthesia department. HISTORY: The patient is a 23 year-old white female who presents with complaints of intermittent vomiting, diarrhea and recently over the past two weeks rectal bleeding. The patient was felt the need to have endoscopic evaluation. She was appraised of the risks of the procedure including the risk of perforation, phlebitis, untoward reaction to medication, bleeding and missed lesions. The patient verbalized her understanding and desired to have the procedure performed. DESCRIPTION OF PROCEDURE: The patient was given the medications by the anesthesia department. She had continuous pulse oximetry, ECG monitoring, intermittent blood pressure monitoring and tidal CO2 monitoring during the examination. She was placed in the left lateral decubitus position. A digital rectal examination was performed and revealed normal anal sphincter tone and no masses. The flexible Olympus pediatric colonoscope was used to intubate the rectum. A view of the colon was developed sequentially to the cecum including a short distance into the terminal ileum. Upon insertion and withdrawal, including a retroflex view in the rectum, no mucosal lesions were encountered. The scope was removed from the patient who tolerated the procedure well and was sent back to OP recovery in good condition. The prep was noted to be fair to good.
== END 2018-06-16 09:20 | disposition home or self-care (01) ==
LOC: SDC 05:50
PROVIDERS: ATTEND Family Medicine
DX: K62.5 Hemorrhage of anus and rectum (principal); R19.7 Diarrhea, unspecified; R11.10 Vomiting, unspecified
CPT/HCPCS: 84703; J2704

== ENCOUNTER 2019-03-07 02:20 | Emergency (ER) | payer MEDICAID, OTHER ==
[2019-03-07 02:42] VITALS: PULSE 92; O2SAT 100
[2019-03-07] MEDS ORDERED: DELTASONE 20 MG PO ONE (02:59)
[2019-03-07] MEDS ORDERED: DELTASONE 20 MG ONE (03:05)
--- NOTE | 2019-03-07 03:07 | ERPHSYRPT ---
- History of Present Illness Time Seen by Provider: 03/07/19 02:51 Source: patient Exam Limitations: no limitations Patient Subjective Stated Complaint: pt states, "I noticed a little bump on my left lower leg , and when I got home from work noticed a few more bumps. Then after work on Saturday, I started having pain and around midnight noticed redness around the bumps". Triage Nursing Assessment: pt ambulated to rm 3, alert and oriented, pleasant. Pt has reddened area to rt medial lower leg, 7cm x 5cm indurated area, with pinpoint in center. Pt thinks its a spider bite from her boot. Wound is not warm to touch, no drainage noted. Lungs clear, heart tones reg, abd lg, obese with active bs x4 quad, nontender. Physician History: 24 years old female presents to the ER with chief complaint of right lower inner leg possible insect bite. Patient reports putting on old boots and felt stinck 2 days ago followed by small blister which popped open and erythema/ redness around it since last night. It is gradually clearing up now but still has enough redness. She's complaining of dull aching//burning pain of mild to marked intensity but itching around it and cramps in the muscle at times. No fever or chills reported. up-to-date with tetanus Timing/Duration: day(s) (2) Quality: burning, itchy, painful Severity: moderate Location: extremities Possible Causes: insect sting Modifying Factors: Improves With: scratching Associated Symptoms: rash Allergies/Adverse Reactions: No Known Drug Allergies Allergy (Verified 06/16/18 06:32) Hx Tetanus, Diphtheria Vaccination/Date Given: No Hx Influenza Vaccination/Date Given: No Hx Pneumococcal Vaccination/Date Given: No Immunizations Up to Date: No - Review of Systems Constitutional: No Symptoms Eyes: No Symptoms Ears, Nose, & Throat: No Symptoms Respiratory: No Symptoms Cardiac: No Symptoms Abdominal/Gastrointestinal: No Symptoms Musculoskeletal: No Symptoms Skin: Rash Neurological: No Symptoms Psychological: No Symptoms - Past Medical History Pertinent Past Medical History: Yes Neurological History: Seizures, Other ENT History: No Pertinent History Cardiac History: No Pertinent History Respiratory History: No Pertinent History Endocrine Medical History: No Pertinent History Musculoskeletal History: No Pertinent History GI Medical History: Other History: No Pertinent History Psycho-Social History: Anxiety, Depression Female Reproductive Disorders: No Pertinent History Other Medical History: HAS HISTORY OF HEADACHES HAS BEEN WORKED UP FOR STOMACH PROBLEMS, hx of syncope, Hx of seizures. - Past Surgical History Past Surgical History: Yes Neuro Surgical History: No Pertinent History Cardiac: No Pertinent History Respiratory: No Pertinent History Gastrointestinal: Other Genitourinary: No Pertinent History Musculoskeletal: No Pertinent History Female Surgical History: Section Other Surgical History: endoscopy to check gastric samples. (Pt states I have a history of when I eat I get sick.) pt states unknown results. colonoscopy - Social History Smoking Status: Current every day smoker How long have you smoked: 8 yrs Exposure to second hand smoke: No Drug Use: none Patient Lives Alone: No - Female History Hx Last Menstrual Period: 02/27/19 Hx Now: No - Nursing Vital Signs Nursing Vital Signs: Initial Vital Signs Temperature 98.9 F 03/07/19 02:41 Pulse Rate 92 H 03/07/19 02:41 Respiratory Rate 18 03/07/19 02:41 Blood Pressure 183/108 03/07/19 02:41 O2 Sat by Pulse Oximetry 100 03/07/19 02:41 Pain Scale Pain Intensity 3 - Physical Exam General Appearance: no apparent distress Eye Exam: eyes nml inspection Ears, Nose, Throat Exam: normal ENT inspection, pharynx normal Neck Exam: normal inspection Respiratory Exam: normal breath sounds, lungs clear Cardiovascular Exam: regular rate/rhythm, normal heart sounds Extremity Exam: normal inspection, normal range of motion Neurologic Exam: alert, oriented x 3, cooperative Skin Exam: rash (bite nieves with area of erythema 2x2cm , no increased temp/ tenderness/discharge) SpO2 Interpretation: normal SpO2: 100 O2 Delivery: Room Air - Course Nursing assessment & vital signs reviewed: Yes Ordered Tests: Medication Summary Discontinued Medications Generic Name Dose Route Start Last Admin Trade Name Freq PRN Reason Stop Dose Admin Prednisone 60 mg 03/07/19 02:59 Deltasone 20 Mg PO 03/07/19 03:00 STAT ONE - Progress Progress: pain not gone completely Progress Note: started on prednisone. Will continue to go home. Recommended taking Benadryl as needed. Discussed signs and symptoms are worsening he needed to the ER which he seemed understanding. At this point do not think needs antibiotics. 03/07/19 03:07 Counseled pt/family regarding: diagnosis, need for follow-up - Departure Departure Disposition: Home Clinical Impression: Insect bite Qualifiers: Encounter type: initial encounter Site of insect bite: lower leg Laterality: right Qualified Code(s): S80.861A - Insect bite (nonvenomous), right lower leg, initial encounter; W57.XXXA - Bitten or stung by nonvenomous insect and other nonvenomous arthropods, initial encounter Condition: Stable Critical Care Time: No Referrals: CLEOPATRA MURILLO [Primary Care Provider] - Follow Up with PCP/3 days Instructions: Insect Bites and Stings (DC) Additional Instructions: take Tylenol/ibuprofen /Benadryl as needed. Continue with steroids.return to ER for increasing redness/swelling/fever or chills. Prescriptions: Prednisone 20 mg [Deltasone 20 mg] 60 mg PO DAILY #15 tablet
[2019-03-07 03:31] VITALS: BP 174/108
== END 2019-03-07 03:32 | disposition home or self-care (01) ==
LOC: ED 02:20
DX: S80.861A Insect bite (nonvenomous), right lower leg, initial encounter (principal); W57.XXXA Bitten or stung by nonvenomous insect and other nonvenomous arthropods, initial encounter
CPT/HCPCS: 99283; A9270-GY

== ENCOUNTER 2019-06-21 00:28 | Emergency (ER) | payer SELFPAY ==
[2019-06-21] MEDS ORDERED: Sodium Chloride 0.9% 1000 ML 1,000 ML IV STA ×2 (00:52→04:24)
[2019-06-21] MEDS ORDERED: Hydromorphone 1 mg/ml Ampule IV ONE ×2 (00:52→04:14)
[2019-06-21] MEDS ORDERED: Pepcid 20 MG VIAL IV ONE ×2 (00:52→01:09)
[2019-06-21] MEDS ORDERED: Zofran 4 MG/2 ML VIAL IV ONE ×2 (00:52→04:23)
--- NOTE | 2019-06-21 00:52 | ERPHSYRPT ---
- History of Present Illness Time Seen by Provider: 06/21/19 00:45 Historian: patient Exam Limitations: no limitations Physician History: This is a 24-year-old overweight white female who presents with right upper quadrant abdominal pain. The pain began approximately noon today. Symptoms were worsening and she had associated nausea and vomiting since 4 or 5pm this afternoon. Patient has had some issues with her gallbladder in the past. She has had no recent studies or evaluations of her gallbladder in the last few years. Patient has not had any diarrhea. Patient symptoms began after eating salad and a pasta dish Timing/Duration: today, hour(s) (12), worse Activities at Onset: none Quality: sharpness, stabbing Abdominal Pain Onset Location: RUQ Pain Radiation: no radiation Severity of Pain-Max: moderate Severity of Pain-Current: moderate Modifying Factors: Improves With: vomiting Associated Symptoms: loss of appetite, nausea, vomiting Previous symptoms: same symptoms as today Allergies/Adverse Reactions: adhesive tape Allergy (Mild, Verified 06/21/19 01:03) Rash Hx Tetanus, Diphtheria Vaccination/Date Given: No Hx Influenza Vaccination/Date Given: No Hx Pneumococcal Vaccination/Date Given: No - Review of Systems Constitutional: No Symptoms Eyes: No Symptoms Ears, Nose, & Throat: No Symptoms Respiratory: No Symptoms Cardiac: No Symptoms Abdominal/Gastrointestinal: Abdominal Pain, Nausea, Vomiting (Right upper quadrant), Appetite Changes Genitourinary Symptoms: No Symptoms Musculoskeletal: No Symptoms Skin: No Symptoms Neurological: No Symptoms Psychological: No Symptoms Endocrine: No Symptoms Hematologic/Lymphatic: No Symptoms Immunological/Allergic: No Symptoms All Other Systems: Reviewed and Negative - Past Medical History Pertinent Past Medical History: Yes Neurological History: Seizures, Other ENT History: No Pertinent History Cardiac History: No Pertinent History Respiratory History: No Pertinent History Endocrine Medical History: No Pertinent History Musculoskeletal History: No Pertinent History GI Medical History: Other History: No Pertinent History Psycho-Social History: Anxiety, Depression Female Reproductive Disorders: No Pertinent History Other Medical History: HAS HISTORY OF HEADACHES HAS BEEN WORKED UP FOR STOMACH PROBLEMS, hx of syncope, Hx of seizures. - Past Surgical History Past Surgical History: Yes Neuro Surgical History: No Pertinent History Cardiac: No Pertinent History Respiratory: No Pertinent History Gastrointestinal: Other Genitourinary: No Pertinent History Musculoskeletal: No Pertinent History Female Surgical History: Section Other Surgical History: endoscopy to check gastric samples. (Pt states I have a history of when I eat I get sick.) pt states unknown results. colonoscopy - Social History Smoking Status: Current every day smoker How long have you smoked: 8 yrs Exposure to second hand smoke: No Drug Use: none Patient Lives Alone: No - Nursing Vital Signs Nursing Vital Signs: Initial Vital Signs Temperature 98.2 F 06/21/19 00:34 Pulse Rate 108 H 06/21/19 00:34 Respiratory Rate 24 06/21/19 00:34 Blood Pressure 152/105 06/21/19 00:34 O2 Sat by Pulse Oximetry 97 06/21/19 00:34 Pain Scale Pain Intensity 2 - Physical Exam General Appearance: mild distress, alert, anxiety Eye Exam: PERRL/EOMI, eyes nml inspection Ears, Nose, Throat Exam: normal ENT inspection, moist mucous membranes Neck Exam: normal inspection, non-tender, supple, full range of motion Respiratory Exam: normal breath sounds, lungs clear, airway intact, No chest tenderness, No respiratory distress Cardiovascular Exam: regular rate/rhythm, normal heart sounds, normal peripheral pulses Gastrointestinal/Abdomen Exam: soft, normal bowel sounds, tenderness (Right upper quadrant), guarding, No rebound Pelvic Exam: not done Rectal Exam: not done Back Exam: normal inspection, normal range of motion, No CVA tenderness, No vertebral tenderness Extremity Exam: normal inspection, normal range of motion, pelvis stable Neurologic Exam: alert, oriented x 3, 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, 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 Skin Exam: normal color, warm, dry Lymphatic Exam: No adenopathy SpO2 Interpretation: normal O2 Delivery: Room Air - Course Nursing assessment & vital signs reviewed: Yes Ordered Tests: Active Orders 24 hr Category Date Time Status IV Insertion STAT Care 06/21/19 00:52 Active ABDOMEN AND PELVIS W/0 CONTRAS [CT] Stat Exams 06/21/19 00:53 Taken AMYLASE Stat Lab 06/21/19 01:03 Completed CBC W DIFF Stat Lab 06/21/19 01:03 Completed CMP Stat Lab 06/21/19 01:03 Completed CULTURE,URINE Stat Lab 06/21/19 01:19 Received HCG,QUALITATIVE URINE Stat Lab 06/21/19 01:19 Completed LIPASE Stat Lab 06/21/19 01:03 Completed Lactic Acid Stat Lab 06/21/19 00:55 Completed UA W/RFX UR CULTURE Stat Lab 06/21/19 01:19 Completed Medication Summary Discontinued Medications Generic Name Dose Route Start Last Admin Trade Name Sosa PRN Reason Stop Dose Admin Famotidine 20 mg 06/21/19 00:52 06/21/19 01:16 Pepcid 20 Mg Vial IV 06/21/19 00:53 20 mg STAT ONE Administration Famotidine Confirm 06/21/19 01:09 Pepcid 20 Mg Vial Administered 06/21/19 01:10 Dose 20 mg IV .STK-MED ONE Hydromorphone HCl 0.5 mg 06/21/19 00:52 06/21/19 01:15 Hydromorphone 1 Mg/Ml Ampule IV 06/21/19 00:53 0.5 mg STAT ONE Administration Hydromorphone HCl Confirm 06/21/19 01:09 Hydromorphone 1 Mg/Ml Ampule Administered 06/21/19 01:10 Dose 1 mg .ROUTE .STK-MED ONE Sodium Chloride 1,000 mls @ 999 mls/hr 06/21/19 00:52 06/21/19 03:50 Sodium Chloride 0.9% 1000 Ml IV 06/21/19 01:52 Infused .Q1H1M STA Infusion Sodium Chloride Confirm 06/21/19 01:09 Sodium Chloride 0.9% 1000 Ml Administered 06/21/19 01:10 Dose 1,000 mls @ ud .ROUTE .STK-MED ONE Ondansetron HCl 4 mg 06/21/19 00:52 06/21/19 01:17 Zofran 4 Mg/2 Ml Vial IV 06/21/19 00:53 4 mg STAT ONE Administration Ondansetron HCl Confirm 06/21/19 01:09 Zofran 4 Mg/2 Ml Vial Administered 06/21/19 01:10 Dose 4 mg .ROUTE .STK-MED ONE Lab/Rad Data: Laboratory Result Diagrams 06/21/19 01:03 06/21/19 01:03 Laboratory Results 06/21/19 06/21/19 06/21/19 Range/Units 01:19 01:19 01:03 WBC (4.0-10.5) K/mm3 RBC (4.1-5.4) M/mm3 Hgb (12.0-16.0) gm/dl Hct (35-47) % MCV (78-100) fl MCH (26-32) pg MCHC (32-36) g/dl RDW (11.5-14.0) % Plt Count (150-450) K/mm3 MPV (7.5-11.0) fl Gran % (36.0-66.0) % Eos # (Auto) (0-0.5) Absolute Lymphs (auto) (1.0-4.6) Absolute Monos (auto) (0.0-1.3) Lymphocytes % (24.0-44.0) % Monocytes % (0.0-12.0) % Eosinophils % (0.00-5.0) % Basophils % (0.0-0.4) % Absolute Granulocytes (1.4-6.9) Basophils # (0-0.4) Sodium 138 (137-145) mmol/L Potassium 3.8 (3.5-5.1) mmol/L Chloride 104 (98-107) mmol/L Carbon Dioxide 26 (22-30) mmol/L Anion Gap 11.2 (5-15) MEQ/L BUN 14 (7-17) mg/dL Creatinine 0.63 (0.52-1.04) mg/dL Estimated GFR > 60.0 ML/MIN Glucose 92 (74-106) mg/dL Lactic Acid (0.4-2.0) Calcium 9.0 (8.4-10.2) mg/dL Total Bilirubin 0.50 (0.2-1.3) mg/dL AST 31 (14-36) U/L ALT 38 H (0-35) U/L Alkaline Phosphatase 96 (38-126) U/L Serum Total Protein 7.6 (6.3-8.2) g/dL Albumin 4.2 (3.5-5.0) g/dL Amylase 45 (30-110) U/L Lipase 40 (23-300) U/L Urine Color YELLOW (YELLOW) Urine Appearance SLIGHTLY CLOUDY (CLEAR) Urine pH 6.0 (5-6) Ur Specific [place] 1.030 (1.005-1.025) Urine Protein 30 (Negative) Urine Ketones NEGATIVE (NEGATIVE) Urine Blood NEGATIVE (0-5) Shola/ul Urine Nitrite NEGATIVE (NEGATIVE) Urine Bilirubin NEGATIVE (NEGATIVE) Urine Urobilinogen NEGATIVE (0-1) mg/dL Ur Leukocyte Esterase TRACE (NEGATIVE) Urine WBC (Auto) 6-10 (0-5) /HPF Urine RBC (Auto) 3-5 (0-2) /HPF U Hyaline Cast (Auto) 3-5 (0-2) /LPF U Epithel Cells (Auto) RARE (FEW) /HPF Urine Bacteria (Auto) RARE (NEGATIVE) /HPF Urine Mucus (Auto) SLIGHT (NEGATIVE) /HPF Urine Culture Reflexed YES (NO) Urine Glucose NEGATIVE (NEGATIVE) mg/dL Urine HCG, Qual NEGATIVE (Negative) 06/21/19 06/21/19 Range/Units 01:03 00:55 WBC 19.0 H (4.0-10.5) K/mm3 RBC 4.78 (4.1-5.4) M/mm3 Hgb 13.2 (12.0-16.0) gm/dl Hct 40.2 (35-47) % MCV 84.1 (78-100) fl MCH 27.6 (26-32) pg MCHC 32.8 (32-36) g/dl RDW 13.3 (11.5-14.0) % Plt Count 337 (150-450) K/mm3 MPV 11.1 H (7.5-11.0) fl Gran % 87.3 H (36.0-66.0) % Eos # (Auto) 0.11 (0-0.5) Absolute Lymphs (auto) 1.27 (1.0-4.6) Absolute Monos (auto) 0.99 (0.0-1.3) Lymphocytes % 6.7 L (24.0-44.0) % Monocytes % 5.2 (0.0-12.0) % Eosinophils % 0.6 (0.00-5.0) % Basophils % 0.2 (0.0-0.4) % Absolute Granulocytes 16.58 H (1.4-6.9) Basophils # 0.03 (0-0.4) Sodium (137-145) mmol/L Potassium (3.5-5.1) mmol/L Chloride (98-107) mmol/L Carbon Dioxide (22-30) mmol/L Anion Gap (5-15) MEQ/L BUN (7-17) mg/dL Creatinine (0.52-1.04) mg/dL Estimated GFR ML/MIN Glucose (74-106) mg/dL Lactic Acid 0.9 (0.4-2.0) Calcium (8.4-10.2) mg/dL Total Bilirubin (0.2-1.3) mg/dL AST (14-36) U/L ALT (0-35) U/L Alkaline Phosphatase (38-126) U/L Serum Total Protein (6.3-8.2) g/dL Albumin (3.5-5.0) g/dL Amylase (30-110) U/L Lipase (23-300) U/L Urine Color (YELLOW) Urine Appearance (CLEAR) Urine pH (5-6) Ur Specific [place] (1.005-1.025) Urine Protein (Negative) Urine Ketones (NEGATIVE) Urine Blood (0-5) Shola/ul Urine Nitrite (NEGATIVE) Urine Bilirubin (NEGATIVE) Urine Urobilinogen (0-1) mg/dL Ur Leukocyte Esterase (NEGATIVE) Urine WBC (Auto) (0-5) /HPF Urine RBC (Auto) (0-2) /HPF U Hyaline Cast (Auto) (0-2) /LPF U Epithel Cells (Auto) (FEW) /HPF Urine Bacteria (Auto) (NEGATIVE) /HPF Urine Mucus (Auto) (NEGATIVE) /HPF Urine Culture Reflexed (NO) Urine Glucose (NEGATIVE) mg/dL Urine HCG, Qual (Negative) - Progress Progress: improved, pain not gone completely, re-examined Progress Note: 06/21/19 04:06 CAT scan results reflect an enteritis of the small bowel. Counseled pt/family regarding: lab results, diagnosis, rad results - Departure Departure Disposition: Home Clinical Impression: UTI (urinary tract infection), Regional enteritis of small bowel Condition: Stable Critical Care Time: No Referrals: CLEOPATRA MURILLO [Primary Care Provider] - Additional Instructions: Drink plenty of fluids. Follow-up with primary care physician for persistent symptoms. Prescriptions: Ondansetron ODT 4 MG [Zofran Odt 4 mg] 4 mg PO Q6H PRN PRN #10 tab.rapdis PRN Reason: Vomiting Ciprofloxacin [Cipro 500 MG] 500 mg PO BID #14 tablet Metronidazole 500 mg [Flagyl 500 MG] 500 mg PO TID #21 tablet
[2019-06-21 01:06] LABS: Absolute Neutrophil Ct (ANC) 16.58 (1.4-6.9); BASOPHIL % 0.2 % (0.0-0.4); Basophil (Absolute #) 0.03 (0-0.4); Eosinophil % 0.6 % (0.00-5.0); Eosinophil (Absolute #) 0.11 (0-0.5); Hematocrit 40.2 % (35-47); Hemoglobin 13.2 gm/dl (12.0-16.0); Lymphocyte (Absolute #) 1.27 (1.0-4.6); Lymphocytes % 6.7 % (24.0-44.0); Mean Cell Volume 84.1 fl (78-100); Mean Corpuscular Hemoglobin 27.6 pg (26-32); Mean Corpuscular Hgb Concent. 32.8 g/dl (32-36); Mean Platelet Volume 11.1 fl (7.5-11.0); Monocyte (Absolute #) 0.99 (0.0-1.3); Monocytes % 5.2 % (0.0-12.0); Neutrophil % 87.3 % (36.0-66.0); Platelet Count 337 K/mm3 (150-450); Red Blood Count 4.78 M/mm3 (4.1-5.4); Red Cell Distribution Width 13.3 % (11.5-14.0)
[2019-06-21] MEDS ORDERED: Hydromorphone 1 mg/ml Ampule ONE ×2 (01:09→04:16)
[2019-06-21] MEDS ORDERED: Sodium Chloride 0.9% 1000 ML 1,000 ML ONE ×2 (01:09→04:25)
[2019-06-21] MEDS ORDERED: Zofran 4 MG/2 ML VIAL ONE ×2 (01:09→04:25)
[2019-06-21 01:18] LABS: ALBUMIN 4.2 g/dL (3.5-5.0); ALKALINE PHOSPHATASE 96 U/L (38-126); AMYLASE 45 U/L (30-110); ANION GAP 11.2 MEQ/L (5-15); BLOOD UREA NITROGEN 14 mg/dL (7-17); CHLORIDE 104 mmol/L (98-107); Carbon Dioxide 26 mmol/L (22-30); Creatinine 1 0.63 mg/dL (0.52-1.04); Glucose 92 mg/dL (74-106); LIPASE 40 U/L (23-300); Potassium 3.8 mmol/L (3.5-5.1); SGOT/AST 31 U/L (14-36); SGPT/ALT 38 U/L (0-35); SODIUM 138 mmol/L (137-145); Total Protein 7.6 g/dL (6.3-8.2)
[2019-06-21 01:26] LABS: Appearance SLIGHTLY CLOUDY (CLEAR); Bacteria RARE /HPF (NEGATIVE); Bilirubin NEGATIVE (NEGATIVE); Blood NEGATIVE Ery/ul (0-5); Epithelial Cells RARE /HPF (FEW); Glucose NEGATIVE (NEGATIVE); Ketones NEGATIVE (NEGATIVE); Leukocyte Esterase TRACE (NEGATIVE); Mucus SLIGHT /HPF (NEGATIVE); Nitrite NEGATIVE (NEGATIVE); Protein,Urine Dip 30 (Negative); Urobilinogen NEGATIVE mg/dL (0-1)
[2019-06-21 01:53] VITALS: O2SAT 100
[2019-06-21] MEDS ORDERED: Cipro 500 MG PO ONE (04:09)
[2019-06-21] MEDS ORDERED: Flagyl 500 MG PO ONE (04:10)
[2019-06-21] MEDS ORDERED: Cipro 500 MG ONE (04:11)
[2019-06-21] MEDS ORDERED: Flagyl 500 MG ONE (04:11)
[2019-06-21 06:12] VITALS: BP 141/80; PULSE 101
--- NOTE | 2019-06-21 08:51 | XRAY ---
Indication: Abdomen pain. Nausea and vomiting. Multiple contiguous axial images obtained through the abdomen and pelvis without contrast as ordered. Comparison: July 12, 2016. Lung bases demonstrates minimal bilateral dependent atelectasis. No infiltrate or effusion. Heart is not enlarged. Noncontrasted stomach and bowel loops appear nonobstructed. Normal appendix. Mild sigmoid diverticulosis without diverticulitis. Tiny cul-de-sac fluid presumed physiologic from rupture/leaking cyst. No free air. Hepatomegaly measuring 19.9 cm. Splenomegaly measuring 13 cm in greatest axial dimension Remaining liver, gallbladder, pancreas, spleen, adrenal glands, kidneys, ureters, bladder, uterus, and aorta appear unremarkable for noncontrast exam. Osseous structures intact. Impression: 1. Mild sigmoid diverticulosis and hepatosplenomegaly. 2. Remaining CT abdomen/pelvis without contrast exam is negative. Comment: Preliminary interpretation was made by [facility]. No critical discrepancy.
== END 2019-06-21 06:10 | disposition home or self-care (01) ==
LOC: ED 00:28
DX: N39.0 Urinary tract infection, site not specified (principal); K50.00 Crohn's disease of small intestine without complications; R10.11 Right upper quadrant pain; R11.2 Nausea with vomiting, unspecified; R63.0 Anorexia
CPT/HCPCS: 36000; 36415; 74176; 80053; 81001; 82150; 83605; 83690; 84703; 85025; 87086; 96360; 96374; 99285; J1170; J2405; A9270-GY

== ENCOUNTER 2020-01-11 00:51 | Observation (INO) | payer OTHER ==
--- NOTE | 2020-01-11 01:18 | ERPHSYRPT ---
- History of Present Illness Time Seen by Provider: 01/11/20 01:22 Historian: patient Exam Limitations: no limitations Physician History: For the past 7 days pt has had nausea. For the past 3 days pt has had constant sharp/dull LLQ abdominal pain up to 6/10 in severity. Pt states her last BM was today without blood but small in amount. Pt denies fever, chest pain, shortness of air, vomiting. Allergies/Adverse Reactions: adhesive tape Allergy (Mild, Verified 01/11/20 01:23) Rash Home Medications: No Reportable Medications [No Reported Medications] 01/11/20 [History] Hx Tetanus, Diphtheria Vaccination/Date Given: No Hx Influenza Vaccination/Date Given: No Hx Pneumococcal Vaccination/Date Given: No - Review of Systems Constitutional: No Fever Respiratory: No Cough, No Dyspnea Cardiac: No Chest Pain Abdominal/Gastrointestinal: Abdominal Pain, Nausea, No Vomiting Genitourinary Symptoms: No Dysuria Skin: No Rash Neurological: No Headache All Other Systems: Reviewed and Negative - Past Medical History Pertinent Past Medical History: Yes Neurological History: Seizures, Other ENT History: No Pertinent History Cardiac History: No Pertinent History Respiratory History: No Pertinent History Endocrine Medical History: No Pertinent History Musculoskeletal History: No Pertinent History GI Medical History: Other History: No Pertinent History Psycho-Social History: Anxiety, Depression Female Reproductive Disorders: No Pertinent History Other Medical History: HAS HISTORY OF HEADACHES HAS BEEN WORKED UP FOR STOMACH PROBLEMS, hx of syncope, Hx of seizures. - Past Surgical History Past Surgical History: Yes Neuro Surgical History: No Pertinent History Cardiac: No Pertinent History Respiratory: No Pertinent History Gastrointestinal: Other Genitourinary: No Pertinent History Musculoskeletal: No Pertinent History Female Surgical History: Section Other Surgical History: endoscopy to check gastric samples. (Pt states I have a history of when I eat I get sick.) pt states unknown results. colonoscopy - Social History Smoking Status: Current every day smoker How long have you smoked: 8 yrs Exposure to second hand smoke: No Drug Use: none Patient Lives Alone: No - Nursing Vital Signs Nursing Vital Signs: Initial Vital Signs Temperature 98.4 F 01/11/20 01:11 Pulse Rate 95 H 01/11/20 01:11 Respiratory Rate 18 01/11/20 01:11 Blood Pressure 176/118 01/11/20 01:11 O2 Sat by Pulse Oximetry 96 01/11/20 01:11 Pain Scale Pain Intensity 8 - Physical Exam General Appearance: alert Eye Exam: PERRL/EOMI Ears, Nose, Throat Exam: pharynx normal, moist mucous membranes Neck Exam: normal inspection Respiratory Exam: lungs clear Cardiovascular Exam: normal heart sounds Gastrointestinal/Abdomen Exam: soft, normal bowel sounds, tenderness (mild LLQ & RUQ abdominal tenderness.) Back Exam: normal inspection Extremity Exam: No pedal edema Neurologic Exam: alert, cooperative Skin Exam: warm, dry SpO2 Interpretation: normal SpO2: 96 O2 Delivery: Room Air - Course Nursing assessment & vital signs reviewed: Yes - CT Exams Abdomen/Pelvis CT Interpretation: Tele-radiologist Report (The majority of the colon is collaps ed which is a nonspecific appearance that can correlate with colitis in the appropriate clinical setting.) Ordered Tests: Active Orders 24 hr Category Date Time Status IV Insertion STAT Care 01/11/20 01:38 Active ABDOMEN AND PELVIS W/0 CONTRAS [CT] Stat Exams 01/11/20 01:42 Taken AMYLASE Stat Lab 01/11/20 01:40 Completed CBC W DIFF Stat Lab 01/11/20 01:40 Completed CMP Stat Lab 01/11/20 01:40 Completed CULTURE,URINE Stat Lab 01/11/20 01:40 Received HCG QUALITATIVE,SERUM Stat Lab 01/11/20 01:40 Completed LIPASE Stat Lab 01/11/20 01:40 Completed UA W/RFX UR CULTURE Stat Lab 01/11/20 01:40 Completed Medication Summary Discontinued Medications Generic Name Dose Route Start Last Admin Trade Name Jonathanq PRN Reason Stop Dose Admin Acetaminophen 650 mg 01/11/20 01:38 01/11/20 01:47 Tylenol 325 Mg PO 01/11/20 01:39 650 mg STAT ONE Administration Acetaminophen Confirm 01/11/20 01:45 Tylenol 325 Mg Administered 01/11/20 01:46 Dose 650 mg .ROUTE .STK-MED ONE Sodium Chloride 1,000 mls @ 999 mls/hr 01/11/20 01:38 01/11/20 02:49 Sodium Chloride 0.9% 1000 Ml IV 01/11/20 02:38 Infused .Q1H1M STA Infusion Sodium Chloride Confirm 01/11/20 01:45 Sodium Chloride 0.9% 1000 Ml Administered 01/11/20 01:46 Dose 1,000 mls @ ud .ROUTE .STK-MED ONE Promethazine HCl 25 mg 01/11/20 01:38 01/11/20 01:48 Phenergan 25 Mg Inj IM 01/11/20 01:39 25 mg STAT ONE Administration Promethazine HCl Confirm 01/11/20 01:45 Phenergan 25 Mg Inj Administered 01/11/20 01:46 Dose 25 mg .ROUTE .STK-MED ONE Lab/Rad Data: Laboratory Result Diagrams 01/11/20 01:40 01/11/20 01:40 Laboratory Results 01/11/20 01/11/20 01/11/20 Range/Units 01:40 01:40 01:40 WBC (4.0-10.5) K/mm3 RBC (4.1-5.4) M/mm3 Hgb (12.0-16.0) gm/dl Hct (35-47) % MCV (78-100) fl MCH (26-32) pg MCHC (32-36) g/dl RDW (11.5-14.0) % Plt Count (150-450) K/mm3 MPV (7.5-11.0) fl Gran % (36.0-66.0) % Eos # (Auto) (0-0.5) Absolute Lymphs (auto) (1.0-4.6) Absolute Monos (auto) (0.0-1.3) Lymphocytes % (24.0-44.0) % Monocytes % (0.0-12.0) % Eosinophils % (0.00-5.0) % Basophils % (0.0-0.4) % Absolute Granulocytes (1.4-6.9) Basophils # (0-0.4) Sodium 137 (137-145) mmol/L Potassium 3.7 (3.5-5.1) mmol/L Chloride 105 (98-107) mmol/L Carbon Dioxide 25 (22-30) mmol/L Anion Gap 10.5 (5-15) MEQ/L BUN 11 (7-17) mg/dL Creatinine 0.67 (0.52-1.04) mg/dL Estimated GFR > 60.0 ML/MIN Glucose 89 (74-106) mg/dL Calcium 9.4 (8.4-10.2) mg/dL Total Bilirubin 0.30 (0.2-1.3) mg/dL AST 23 (14-36) U/L ALT 23 (0-35) U/L Alkaline Phosphatase 79 (38-126) U/L Serum Total Protein 7.5 (6.3-8.2) g/dL Albumin 4.4 (3.5-5.0) g/dL Amylase 47 (30-110) U/L Lipase 45 (23-300) U/L Serum , Qual NEGATIVE (Negative) Urine Color YELLOW (YELLOW) Urine Appearance SLIGHTLY CLOUDY (CLEAR) Urine pH 5.0 (5-6) Ur Specific [place] 1.019 (1.005-1.025) Urine Protein NEGATIVE (Negative) Urine Ketones NEGATIVE (NEGATIVE) Urine Blood SMALL (0-5) Shola/ul Urine Nitrite NEGATIVE (NEGATIVE) Urine Bilirubin NEGATIVE (NEGATIVE) Urine Urobilinogen NORMAL (0-1) mg/dL Ur Leukocyte Esterase TRACE (NEGATIVE) Urine WBC (Auto) 0-2 (0-5) /HPF Urine RBC (Auto) 0-2 (0-2) /HPF U Epithel Cells (Auto) RARE (FEW) /HPF Urine Bacteria (Auto) FEW (NEGATIVE) /HPF U Non-Squamous Epi Cells RARE (FEW) /HPF Urine Mucus (Auto) SLIGHT (NEGATIVE) /HPF Urine Culture Reflexed YES (NO) Urine Glucose NEGATIVE (NEGATIVE) mg/dL Slides for Path Review 01/11/20 Range/Units 01:40 WBC 14.9 H (4.0-10.5) K/mm3 RBC 5.05 (4.1-5.4) M/mm3 Hgb 14.1 (12.0-16.0) gm/dl Hct 42.6 (35-47) % MCV 84.4 (78-100) fl MCH 27.9 (26-32) pg MCHC 33.1 (32-36) g/dl RDW 13.2 (11.5-14.0) % Plt Count 401 (150-450) K/mm3 MPV 11.2 H (7.5-11.0) fl Gran % 66.4 H (36.0-66.0) % Eos # (Auto) 0.23 (0-0.5) Absolute Lymphs (auto) 3.85 (1.0-4.6) Absolute Monos (auto) 0.89 (0.0-1.3) Lymphocytes % 25.9 (24.0-44.0) % Monocytes % 6.0 (0.0-12.0) % Eosinophils % 1.5 (0.00-5.0) % Basophils % 0.2 (0.0-0.4) % Absolute Granulocytes 9.87 H (1.4-6.9) Basophils # 0.03 (0-0.4) Sodium (137-145) mmol/L Potassium (3.5-5.1) mmol/L Chloride (98-107) mmol/L Carbon Dioxide (22-30) mmol/L Anion Gap (5-15) MEQ/L BUN (7-17) mg/dL Creatinine (0.52-1.04) mg/dL Estimated GFR ML/MIN Glucose (74-106) mg/dL Calcium (8.4-10.2) mg/dL Total Bilirubin (0.2-1.3) mg/dL AST (14-36) U/L ALT (0-35) U/L Alkaline Phosphatase (38-126) U/L Serum Total Protein (6.3-8.2) g/dL Albumin (3.5-5.0) g/dL Amylase (30-110) U/L Lipase (23-300) U/L Serum , Qual (Negative) Urine Color (YELLOW) Urine Appearance (CLEAR) Urine pH (5-6) Ur Specific [place] (1.005-1.025) Urine Protein (Negative) Urine Ketones (NEGATIVE) Urine Blood (0-5) Shola/ul Urine Nitrite (NEGATIVE) Urine Bilirubin (NEGATIVE) Urine Urobilinogen (0-1) mg/dL Ur Leukocyte Esterase (NEGATIVE) Urine WBC (Auto) (0-5) /HPF Urine RBC (Auto) (0-2) /HPF U Epithel Cells (Auto) (FEW) /HPF Urine Bacteria (Auto) (NEGATIVE) /HPF U Non-Squamous Epi Cells (FEW) /HPF Urine Mucus (Auto) (NEGATIVE) /HPF Urine Culture Reflexed (NO) Urine Glucose (NEGATIVE) mg/dL Slides for Path Review YES - Progress Progress: unchanged Discussed with : Thaddeus Will see patient in: hospital (observation) Counseled pt/family regarding: lab results, rad results - Departure Departure Disposition: Observation Clinical Impression: Colitis Condition: Stable Critical Care Time: No Referrals: DOCTOR,NO FAMILY [Primary Care Provider] -
[2020-01-11] MEDS ORDERED: Phenergan 25 MG INJ IM ONE (01:38)
[2020-01-11] MEDS ORDERED: Sodium Chloride 0.9% 1000 ML 1,000 ML IV STA (01:38)
[2020-01-11] MEDS ORDERED: TYLENOL 325 MG PO ONE (01:38)
[2020-01-11] MEDS ORDERED: Sodium Chloride 0.9% 1000 ML 1,000 ML ONE (01:45)
[2020-01-11] MEDS ORDERED: TYLENOL 325 MG ONE (01:45)
[2020-01-11] MEDS ORDERED: Phenergan 25 MG INJ ONE (01:45)
[2020-01-11 01:53] LABS: Absolute Neutrophil Ct (ANC) 9.87 (1.4-6.9); BASOPHIL % 0.2 % (0.0-0.4); Basophil (Absolute #) 0.03 (0-0.4); Eosinophil % 1.5 % (0.00-5.0); Eosinophil (Absolute #) 0.23 (0-0.5); Hematocrit 42.6 % (35-47); Hemoglobin 14.1 gm/dl (12.0-16.0); Lymphocyte (Absolute #) 3.85 (1.0-4.6); Lymphocytes % 25.9 % (24.0-44.0); Mean Cell Volume 84.4 fl (78-100); Mean Corpuscular Hemoglobin 27.9 pg (26-32); Mean Corpuscular Hgb Concent. 33.1 g/dl (32-36); Mean Platelet Volume 11.2 fl (7.5-11.0); Monocyte (Absolute #) 0.89 (0.0-1.3); Neutrophil % 66.4 % (36.0-66.0); Platelet Count 401 K/mm3 (150-450); Red Blood Count 5.05 M/mm3 (4.1-5.4); Red Cell Distribution Width 13.2 % (11.5-14.0); White Blood Count 14.9 K/mm3 (4.0-10.5)
[2020-01-11 02:04] LABS: ALBUMIN 4.4 g/dL (3.5-5.0); ALKALINE PHOSPHATASE 79 U/L (38-126); AMYLASE 47 U/L (30-110); ANION GAP 10.5 MEQ/L (5-15); BLOOD UREA NITROGEN 11 mg/dL (7-17); CHLORIDE 105 mmol/L (98-107); Calcium 9.4 mg/dL (8.4-10.2); Carbon Dioxide 25 mmol/L (22-30); Creatinine 1 0.67 mg/dL (0.52-1.04); EST GLOMERULAR FILTRATION RATE > 60.0 ML/MIN; Glucose 89 mg/dL (74-106); LIPASE 45 U/L (23-300); Potassium 3.7 mmol/L (3.5-5.1); SGOT/AST 23 U/L (14-36); SGPT/ALT 23 U/L (0-35); SODIUM 137 mmol/L (137-145); Total Protein 7.5 g/dL (6.3-8.2)
[2020-01-11 02:07] LABS: Appearance SLIGHTLY CLOUDY (CLEAR)
[2020-01-11 02:08] LABS: Bilirubin NEGATIVE (NEGATIVE); Blood SMALL Ery/ul (0-5); Glucose NEGATIVE (NEGATIVE); Ketones NEGATIVE (NEGATIVE); Leukocyte Esterase TRACE (NEGATIVE); Nitrite NEGATIVE (NEGATIVE); Protein,Urine Dip NEGATIVE (Negative); Specific Gravity 1.019 (1.005-1.025); Urobilinogen NORMAL mg/dL (0-1)
[2020-01-11 02:09] LABS: Bacteria FEW /HPF (NEGATIVE); Epithelial Cells RARE /HPF (FEW); Mucus SLIGHT /HPF (NEGATIVE); Non-Squamous Epithelial Cells RARE /HPF (FEW); RBC 0-2 /HPF (0-2); WBC 0-2 /HPF (0-5)
[2020-01-11 02:33] LABS: Slide Review 1 YES
[2020-01-11] MEDS ORDERED: Phenergan 25 MG INJ IM PRN (03:06)
[2020-01-11] MEDS ORDERED: MORPHINE SULFATE 4 MG INJ IV PRN (03:06)
[2020-01-11] MEDS ORDERED: Zofran 4 MG/2 ML VIAL IV PRN (03:06)
[2020-01-11] MEDS ORDERED: Zosyn 3.375 GM Vial 3.375 GM in Sodium Chloride 100ML MINI-BAG PLUS 100 ML IV ONE (03:10)
[2020-01-11] MEDS ORDERED: Zosyn 3.375 GM Vial IV ONE (03:49)
[2020-01-11] MEDS ORDERED: Sodium Chloride 100ML MINI-BAG PLUS 100 ML IV ONE (03:55)
[2020-01-11] MEDS: Sodium Chloride 0.9% 1000 ML 1,000 ML IV SCH ×3 (03:56→23:02)
[2020-01-11 04:00] LABS: BASOPHIL % 0.5 % (0.0-0.4); Basophil (Absolute #) 0.07 (0-0.4); Eosinophil % 1.6 % (0.00-5.0); Eosinophil (Absolute #) 0.23 (0-0.5); Hematocrit 40.9 % (35-47); Hemoglobin 13.2 gm/dl (12.0-16.0); Lymphocyte (Absolute #) 4.02 (1.0-4.6); Lymphocytes % 27.6 % (24.0-44.0); Mean Cell Volume 85.4 fl (78-100); Mean Corpuscular Hemoglobin 27.6 pg (26-32); Mean Corpuscular Hgb Concent. 32.3 g/dl (32-36); Mean Platelet Volume 11.4 fl (7.5-11.0); Monocyte (Absolute #) 0.82 (0.0-1.3); Monocytes % 5.6 % (0.0-12.0); Neutrophil % 64.7 % (36.0-66.0); Platelet Count 381 K/mm3 (150-450); Red Blood Count 4.79 M/mm3 (4.1-5.4); Red Cell Distribution Width 13.2 % (11.5-14.0); White Blood Count 14.5 K/mm3 (4.0-10.5)
[2020-01-11 04:06] LABS: ALBUMIN 3.8 g/dL (3.5-5.0); ALKALINE PHOSPHATASE 67 U/L (38-126); ANION GAP 8.2 MEQ/L (5-15); BLOOD UREA NITROGEN 9 mg/dL (7-17); CHLORIDE 107 mmol/L (98-107); Calcium 8.6 mg/dL (8.4-10.2); Carbon Dioxide 26 mmol/L (22-30); Creatinine 1 0.68 mg/dL (0.52-1.04); EST GLOMERULAR FILTRATION RATE > 60.0 ML/MIN; Glucose 89 mg/dL (74-106); Potassium 3.6 mmol/L (3.5-5.1); SGOT/AST 20 U/L (14-36); SGPT/ALT 21 U/L (0-35); SODIUM 137 mmol/L (137-145); Total Protein 6.7 g/dL (6.3-8.2)
[2020-01-11] MEDS: Zosyn 3.375 GM Vial 3.375 GM in Sodium Chloride 100ML MINI-BAG PLUS 100 ML IV SCH ×4 (05:19→23:02)
[2020-01-11] MEDS: TORAdol 30 mg Injection IV PRN ×2 (05:22→15:31)
--- NOTE | 2020-01-11 09:04 | XRAY ---
Indication: Left lower quadrant pain. Elevated WBC. Multiple contiguous axial images obtained through the abdomen and pelvis without contrast as ordered. Comparison: June 21, 2019. Lung bases are clear. Heart is not enlarged. Noncontrasted stomach and bowel loops appear nonobstructed. Normal appendix. No free fluid/air. Again 19.5 cm hepatomegaly and 12.6 cm splenomegaly. Remaining liver, gallbladder, pancreas, spleen, adrenal glands, kidneys, ureters, bladder, uterus, and aorta appear grossly unremarkable for noncontrast exam. Osseous structures intact. Impression: 1. Again hepatosplenomegaly. 2. Remaining CT abdomen/pelvis without contrast exam is negative. Comment: Preliminary interpretation was made by [facility]. No critical discrepancy.
[2020-01-11] MEDS: Miralax Powder 17GM PACKET PO SCH (10:54)
[2020-01-11] MEDS: BENTYL 20 MG PO SCH ×2 (10:54→17:27)
[2020-01-11] MEDS ORDERED: Nicoderm CQ 21 MG TOP ONE (11:17)
--- NOTE | 2020-01-11 11:52 | XRAY ---
Indication: Abdomen pain. Two-dimensional gallbladder sonogram performed. Comparison: March 07, 2016. Pancreas not well-seen due to overlying bowel gas. Liver borderline enlarged measuring 18.2 cm. No focal solid/cystic hepatic mass or ascites. Remaining visualized gallbladder and right kidney sonographically normal. Right kidney measures 9.9 cm in length. Impression: Continued negative gallbladder sonogram.
[2020-01-12] MEDS: TORAdol 30 mg Injection IV PRN (05:22)
[2020-01-12] MEDS: Zosyn 3.375 GM Vial 3.375 GM in Sodium Chloride 100ML MINI-BAG PLUS 100 ML IV SCH (05:23)
[2020-01-12 05:26] LABS: Absolute Neutrophil Ct (ANC) 6.07 (1.4-6.9); BASOPHIL % 0.4 % (0.0-0.4); Basophil (Absolute #) 0.04 (0-0.4); Eosinophil % 2.6 % (0.00-5.0); Hematocrit 37.7 % (35-47); Hemoglobin 11.9 gm/dl (12.0-16.0); Lymphocyte (Absolute #) 4.26 (1.0-4.6); Lymphocytes % 37.3 % (24.0-44.0); Mean Cell Volume 87.3 fl (78-100); Mean Corpuscular Hemoglobin 27.5 pg (26-32); Mean Corpuscular Hgb Concent. 31.6 g/dl (32-36); Mean Platelet Volume 11.4 fl (7.5-11.0); Monocyte (Absolute #) 0.74 (0.0-1.3); Monocytes % 6.5 % (0.0-12.0); Neutrophil % 53.2 % (36.0-66.0); Platelet Count 328 K/mm3 (150-450); Red Blood Count 4.32 M/mm3 (4.1-5.4); Red Cell Distribution Width 13.2 % (11.5-14.0); White Blood Count 11.4 K/mm3 (4.0-10.5)
[2020-01-12 05:40] LABS: ANION GAP 8.3 MEQ/L (5-15); BLOOD UREA NITROGEN 10 mg/dL (7-17); CHLORIDE 109 mmol/L (98-107); Calcium 8.5 mg/dL (8.4-10.2); Carbon Dioxide 24 mmol/L (22-30); Creatinine 1 0.79 mg/dL (0.52-1.04); EST GLOMERULAR FILTRATION RATE > 60.0 ML/MIN; Glucose 87 mg/dL (74-106); Potassium 3.9 mmol/L (3.5-5.1); SODIUM 137 mmol/L (137-145)
[2020-01-12 07:23] VITALS: BP 187/85; PULSE 46; O2SAT 98
[2020-01-12] MEDS: BENTYL 20 MG PO SCH (08:29)
[2020-01-12] MEDS: Miralax Powder 17GM PACKET PO SCH (10:02)
--- NOTE | 2020-01-12 11:33 | SSS ---
DISCHARGE DIAGNOSES: 1) IRRITABLE BOWEL SYNDROME. 2) CONSTIPATION. 3) LEUKOCYTOSIS. HISTORY: The patient is a 24 year old white female who presented to the emergency room with complaints of abdominal pain left lower quadrant. The patient has had trouble with constipation most of her life and she reports belly pain essentially also most of her life. She reports it is nonspecific throughout the abdomen. Particularly she was queried in regards to her upper abdomen or right upper quadrant and she reported this was essentially negative. The patient has had previous colonoscopy performed which was essentially normal approximately a year ago. PAST MEDICAL/SURGICAL HISTORY: Otherwise significant for only section. HOME MEDICATIONS: She takes no medications on a regular basis. ALLERGIES: ADHESIVE TAPE. PHYSICAL EXAMINATION: On admission in the emergency room, temperature 98.4F, pulse 95, respiratory rate 18, blood pressure 176/118 initially. O2 saturation 96%. HEENT: Normocephalic, atraumatic. Pupils equal round reactive to light. Extraocular movements intact. Oropharynx is pink and moist. NECK: Supple without lymphadenopathy, thyromegaly or JVD. CHEST: Clear to auscultation. HEART: Regular rate and rhythm without murmurs, rubs or gallops. ABDOMEN: Soft. No palpable masses. EXTREMITIES: Without cyanosis, clubbing or edema. NEUROLOGIC: The patient is alert and oriented x3. No focal deficits were noted. LAB DATA AND TESTS: Laboratory studies in the emergency room did reveal leukocytosis with a white count of 14,900, hemoglobin 14.1, PLT count 401,000. There appeared to be a possible minimal left shift with 66.4% granulocytes. Her metabolic panel was entirely normal including amylase and lipase. Her HCG was negative. UA was essentially normal as well. She had CT scan of the abdomen which showed hepatosplenomegaly with the liver 19.5 cm and 12.6 cm splenomegaly. These were not palpable through the abdomen as far as being enlargements. There was essentially negative examination of the CT other than what was initially read by the tele-radiology partially collapsed colon consistent with possible colitis. The patient also had a gallbladder ultrasound which is essentially negative as well. There were no solid or cystic masses. No ascites. HOSPITAL COURSE: The patient was treated with IV fluids and given MiraLAX and Bentyl in the hospital. She was also treated with piperacillin for her leukocytosis but no clear etiology for infection otherwise. The patient's white count dropped to 11,400 with that treatment. The patient at this point is felt to be improved and ready for discharge home again. She was given a prescription for Bentyl 10 mg to take a.c. and instructed to take MiraLAX on a daily basis to help keep from getting constipated again. The patient is offered an appointment to see me in the office in one week. She was also treated empirically with Augmentin 875 mg twice a day since the leukocytosis did get better with piperacillin but again no clear etiology for infection was noted at this time.
== END 2020-01-12 10:00 | disposition home or self-care (01) ==
LOC: ED 00:51 → MED SURG 04:13
PROVIDERS: ADMIT Family Medicine; ATTEND Family Medicine
DX: K58.1 Irritable bowel syndrome with constipation (principal); D72.829 Elevated white blood cell count, unspecified; R16.2 Hepatomegaly with splenomegaly, not elsewhere classified; Z79.899 Other long term (current) drug therapy
CPT/HCPCS: 36000; 36415; 74176; 76705; 80048; 80053; 81001; 81025; 82150; 83690; 85025; 85652; 86140; 86256; 87040; 87086; 93268; 96360; 96361; 96365; 96372; 99285; G0378; J1885; J2270; J2550; A9270-GY

== ENCOUNTER 2020-05-06 09:29 | Emergency (ER) | payer OTHER ==
[2020-05-06 10:00] LABS: Absolute Neutrophil Ct (ANC) 9.62 (1.4-6.9); BASOPHIL % 0.4 % (0.0-0.4); Basophil (Absolute #) 0.06 (0-0.4); Eosinophil % 1.5 % (0.00-5.0); Eosinophil (Absolute #) 0.21 (0-0.5); Hematocrit 39.3 % (35-47); Hemoglobin 12.5 gm/dl (12.0-16.0); Lymphocyte (Absolute #) 2.81 (1.0-4.6); Lymphocytes % 20.6 % (24.0-44.0); Mean Cell Volume 86.6 fl (78-100); Mean Corpuscular Hemoglobin 27.5 pg (26-32); Mean Corpuscular Hgb Concent. 31.8 g/dl (32-36); Mean Platelet Volume 10.9 fl (7.5-11.0); Monocyte (Absolute #) 0.96 (0.0-1.3); Neutrophil % 70.5 % (36.0-66.0); Platelet Count 384 K/mm3 (150-450); Red Blood Count 4.54 M/mm3 (4.1-5.4); Red Cell Distribution Width 13.2 % (11.5-14.0); White Blood Count 13.7 K/mm3 (4.0-10.5)
--- NOTE | 2020-05-06 10:15 | ERPHSYRPT ---
- History of Present Illness Source: patient Exam Limitations: no limitations Patient Subjective Stated Complaint: " I have had a lot of stress lately, I have had multiple family members recently diagnosed with cancer and one family member pass away. All this has happened just in the past 2 months. I found out I was and I have been emotional. I'm not able to sleep, I don't feel like eat ing. I have had suicidal thoughts for the past couple of weeks, it keeps getting worse. I feel like I need some help. I used to cut my wrist, probably about 3 years ago to help cope with my anxiety but it got better after I had my first kid. I don't want to cut my wrists now because I'm . I just don't know what to do." Triage Nursing Assessment: Pt presents to ER with complaints of suidical ideations. Pt is alert and oriented x 3. Was just at Dr. Brush's office for OB appointment and expressed her feelings to their office about suicidal thoughts and anxiety. They sent her here to be evaualted for psych. Pt is communicable and talks freely to ER staff about the stessors going on in her life. Pt skin is pink, warm, and dry. Pts eyes are red from crying. Pt states unable to eat or sleep due to the anxiety. Pt denies nausea, vomiting, or diarrhea. Abdomen is soft and nontender. Pt denies pain. Pt denies shortness of breath, respirations unlabored at this time. Pt does state she has a headache but believes it is from the stress and crying. See subjective quotes from patient regarding stressors and suidical thoughts. Pt denies having any plan on how she would harm/kill herself at this time. Physician History: Patient is a 25-year-old female who is G2, P1 that presents with suicidal ideation. Patient was seen at the OB clinic for her first OB visit and disclosed the information which prompted the clinic to send patient over to the emergency room. Patient is 8 weeks gestation. Patient is cleared in terms of OB and is stable. Patient has had worsening symptoms over the last couple of weeks. May have started about 2 months ago. Patient had a couple of family members from cancer and other family members that are newly diagnosed with cancer. This has caused her much anxiety and angst. Patient does have history of anxiety and depression. She has never been seen for it. She went through similar things during her first . She has a 3-year-old son. She has never taken any medications. Patient has no plans at this time but she has been known to cut herself in the past. Timing/Duration: week(s) (6-8), intermittent Severity of Symptoms-Max: moderate Severity of Symptoms-Current: moderate Context related to: recent Suicidal thoughts: other (Ideation) Associated Symptoms: anxiety, depressed, suicidal ideation Previous symptoms: same symptoms as today, no recent treatment Allergies/Adverse Reactions: adhesive tape Adverse Reaction (Mild, Verified 05/06/20 09:34) Rash Home Medications: Vits W-Ca,Fe,FA(<1Mg) [] 1 each PO DAILY 05/06/20 [History] Hx Tetanus, Diphtheria Vaccination/Date Given: No Hx Influenza Vaccination/Date Given: No Hx Pneumococcal Vaccination/Date Given: No Immunizations Up to Date: No Travel Risk - International Travel Have you traveled outside of the country in past 3 weeks: No (n) If Yes, where;: n - Coronavirus Screening Close contact with a COVID-19 positive Pt in past 14-21 Days: No - Past Medical History Pertinent Past Medical History: Yes Neurological History: Seizures, Other ENT History: No Pertinent History Cardiac History: No Pertinent History Respiratory History: No Pertinent History Endocrine Medical History: No Pertinent History Musculoskeletal History: No Pertinent History, Other GI Medical History: Colitis History: No Pertinent History Psycho-Social History: Anxiety, Depression Female Reproductive Disorders: No Pertinent History Other Medical History: HAS HISTORY OF HEADACHES HAS BEEN WORKED UP FOR STOMACH PROBLEMS, hx of syncope, Hx of seizures. Has nodule on left wrist. - Past Surgical History Past Surgical History: Yes Neuro Surgical History: No Pertinent History Cardiac: No Pertinent History Respiratory: No Pertinent History Gastrointestinal: Other Genitourinary: No Pertinent History Musculoskeletal: No Pertinent History Female Surgical History: Section Other Surgical History: endoscopy to check gastric samples. (Pt states I have a history of when I eat I get sick.) pt states unknown results. colonoscopy - Social History Smoking Status: Current every day smoker How long have you smoked: 8 yrs Exposure to second hand smoke: No Drug Use: marijuana Patient Lives Alone: No - Female History Hx Last Menstrual Period: 03/09/20 Hx Now: Yes Gestational Age: 8 weeks - Review of Systems Constitutional: No Fever, No Chills Eyes: No Symptoms Ears, Nose, & Throat: No Symptoms Respiratory: No Cough, No Dyspnea Cardiac: No Chest Pain, No Edema, No Syncope Abdominal/Gastrointestinal: No Abdominal Pain, No Nausea, No Vomiting, No Diarrhea Genitourinary Symptoms: No Dysuria Musculoskeletal: No Back Pain, No Neck Pain Skin: No Rash Neurological: No Dizziness, No Focal Weakness, No Sensory Changes Psychological: Anxiety, Depression, Suicidal Ideations Endocrine: No Symptoms All Other Systems: Reviewed and Negative - Nursing Vital Signs Nursing Vital Signs: Initial Vital Signs Temperature 97.2 F 05/06/20 09:37 Pulse Rate 81 05/06/20 09:37 Respiratory Rate 14 05/06/20 09:37 Blood Pressure 159/92 05/06/20 09:37 O2 Sat by Pulse Oximetry 99 05/06/20 09:37 Pain Scale Pain Intensity 0 - Physical Exam General Appearance: no apparent distress Eyes, Ears, Nose, Throat Exam: normal ENT inspection, moist mucous membranes Neck Exam: normal inspection, non-tender, supple Respiratory Exam: normal breath sounds, lungs clear, No respiratory distress Cardiovascular Exam: regular rate/rhythm, No edema Gastrointestinal/Abdominal Exam: soft, No tenderness, No distention Extremities Exam: normal inspection, normal range of motion, No evidence of injury, No edema Current Suicidality: denies suicide plan Neurological Exam: alert, resource manager forester II-XII nml as tested, oriented x 3 Skin Exam: normal color, warm, dry, No rash SpO2 Interpretation: normal SpO2: 99 - Course Nursing assessment & vital signs reviewed: Yes EKG Interpreted by Me: RATE (66), Sinus Rhythm, NORMAL AXIS, NORMAL INTERVALS, NORMAL QRS Ordered Tests: Active Orders 24 hr Category Date Time Status EKG-ER Only STAT Care 05/06/20 10:21 Active ACETAMINOPHEN Stat Lab 05/06/20 09:50 Completed CBC W DIFF Stat Lab 05/06/20 09:50 Completed CMP Stat Lab 05/06/20 09:50 Completed ETHYL ALCOHOL Stat Lab 05/06/20 09:50 Completed SALICYLATE Stat Lab 05/06/20 09:50 Completed Urine Triage Profile Stat Lab 05/06/20 11:28 Completed Lab/Rad Data: Laboratory Result Diagrams 05/06/20 09:50 05/06/20 09:50 Laboratory Results 01/05/06/20 05/06/20 Range/Units 11:28 09:50 09:50 WBC 13.7 H (4.0-10.5) K/mm3 RBC 4.54 (4.1-5.4) M/mm3 Hgb 12.5 (12.0-16.0) gm/dl Hct 39.3 (35-47) % MCV 86.6 (78-100) fl MCH 27.5 (26-32) pg MCHC 31.8 L (32-36) g/dl RDW 13.2 (11.5-14.0) % Plt Count 384 (150-450) K/mm3 MPV 10.9 (7.5-11.0) fl Gran % 70.5 H (36.0-66.0) % Eos # (Auto) 0.21 (0-0.5) Absolute Lymphs (auto) 2.81 (1.0-4.6) Absolute Monos (auto) 0.96 (0.0-1.3) Lymphocytes % 20.6 L (24.0-44.0) % Monocytes % 7.0 (0.0-12.0) % Eosinophils % 1.5 (0.00-5.0) % Basophils % 0.4 (0.0-0.4) % Absolute Granulocytes 9.62 H (1.4-6.9) Basophils # 0.06 (0-0.4) Sodium 136 L (137-145) mmol/L Potassium 3.9 (3.5-5.1) mmol/L Chloride 105 (98-107) mmol/L Carbon Dioxide 25 (22-30) mmol/L Anion Gap 10.3 (5-15) MEQ/L BUN 10 (7-17) mg/dL Creatinine 0.54 (0.52-1.04) mg/dL Estimated GFR > 60.0 ML/MIN Glucose 102 (74-106) mg/dL Calcium 9.0 (8.4-10.2) mg/dL Total Bilirubin 0.30 (0.2-1.3) mg/dL AST 22 (14-36) U/L ALT 16 (0-35) U/L Alkaline Phosphatase 73 (38-126) U/L Serum Total Protein 6.6 (6.3-8.2) g/dL Albumin 3.7 (3.5-5.0) g/dL Salicylates < 1.0 L (2-20) mg/dL Urine Opiates Level NEGATIVE (NEGATIVE) Ur Methadone NEGATIVE (NEGATIVE) Acetaminophen < 10 L (10-30) ug/ml Urine Barbiturates NEGATIVE (NEGATIVE) Ur Phencyclidine (PCP) NEGATIVE (NEGATIVE) Urine Amphetamine NEGATIVE (NEGATIVE) U Benzodiazepine Level NEGATIVE (NEGATIVE) Urine Cocaine NEGATIVE (NEGATIVE) Urine Marijuana (THC) POSITIVE (NEGATIVE) Ethyl Alcohol < 10 (0-10) mg/dL - Progress Progress: improved Progress Note: 05/06/20 10:28 Medical clearance and then psych evaluation. Pt understood plan and agree. 05/06/20 12:58 Patient is medically cleared and is awaiting psych evaluation for probable inpatient treatment. 05/06/20 16:15 After psych evaluation, patient was deemed safe to go home in care of her boyfriend. Evaluation was done by counselor at [facility]. Patient was given an outpatient appointment at the [facility] on May 11 at 3 PM. This was discussed with patient who is in agreement with plan. Will discharge home with precautions. Counseled pt/family regarding: lab results, diagnosis, need for follow-up - Departure Departure Disposition: Home Clinical Impression: Suicidal ideation, Condition: Stable Critical Care Time: No Referrals: DOCTOR,NO FAMILY [Primary Care Provider] - Instructions: Depression, Adult (DC), Suicide Prevention Additional Instructions: Monitor symptoms closely. Drink plenty of water and monitor your as well. Continue with your home medications. You have an outpatient appointment at [facility] on May 11 at 3 PM. Return to ER if worse.
[2020-05-06 10:21] LABS: ACETAMINOPHEN < 10 ug/ml (10-30); ALBUMIN 3.7 g/dL (3.5-5.0); ALKALINE PHOSPHATASE 73 U/L (38-126); ANION GAP 10.3 MEQ/L (5-15); BLOOD UREA NITROGEN 10 mg/dL (7-17); CHLORIDE 105 mmol/L (98-107); Carbon Dioxide 25 mmol/L (22-30); Creatinine 1 0.54 mg/dL (0.52-1.04); EST GLOMERULAR FILTRATION RATE > 60.0 ML/MIN; ETHYL ALCOHOL < 10 mg/dL (0-10); Glucose 102 mg/dL (74-106); Potassium 3.9 mmol/L (3.5-5.1); SALICYLATE < 1.0 mg/dL (2-20); SGOT/AST 22 U/L (14-36); SGPT/ALT 16 U/L (0-35); SODIUM 136 mmol/L (137-145); Total Protein 6.6 g/dL (6.3-8.2)
[2020-05-06 12:01] LABS: Amphetamine,Urine NEGATIVE (NEGATIVE); Barbiturate,Urine NEGATIVE (NEGATIVE); Benzodiazepine,Urine NEGATIVE (NEGATIVE); Cocaine,Urine NEGATIVE (NEGATIVE); Methadone,Urine NEGATIVE (NEGATIVE); Opiate,Urine NEGATIVE (NEGATIVE); PCP,Urine NEGATIVE (NEGATIVE); THC,Urine POSITIVE (NEGATIVE)
[2020-05-06 16:03] VITALS: BP 126/81; PULSE 81
[2020-05-06 16:14] VITALS: O2SAT 99
== END 2020-05-06 16:28 | disposition home or self-care (01) ==
LOC: ED 09:29
DX: R45.851 Suicidal ideations (principal); Z33.1 Pregnant state, incidental
CPT/HCPCS: 36415; 76815; 80053; 80307; 85025; 87491; 87591; 87624; 87625; 88175; 90791; 93005; 99214; 99284; G0480; Q3014; 81002; 81025; 99213

== ENCOUNTER 2020-07-25 14:41 | Emergency (ER) | payer OTHER ==
[2020-07-25] MEDS ORDERED: Sodium Chloride 0.9% 1000 ML 1,000 ML ONE (15:16)
[2020-07-25] MEDS: Sodium Chloride 0.9% 1000 ML 1,000 ML IV STA (15:17)
[2020-07-25 15:18] LABS: BASOPHIL % 0.2 % (0.0-0.4); Basophil (Absolute #) 0.03 (0-0.4); Eosinophil % 1.1 % (0.00-5.0); Eosinophil (Absolute #) 0.14 (0-0.5); Hematocrit 37.3 % (35-47); Hemoglobin 12.2 gm/dl (12.0-16.0); Lymphocyte (Absolute #) 2.21 (1.0-4.6); Mean Corpuscular Hemoglobin 27.8 pg (26-32); Mean Corpuscular Hgb Concent. 32.7 g/dl (32-36); Mean Platelet Volume 11.7 fl (7.5-11.0); Monocyte (Absolute #) 0.72 (0.0-1.3); Monocytes % 5.5 % (0.0-12.0); Neutrophil % 76.2 % (36.0-66.0); Platelet Count 343 K/mm3 (150-450); Red Blood Count 4.39 M/mm3 (4.1-5.4); Red Cell Distribution Width 12.7 % (11.5-14.0)
--- NOTE | 2020-07-25 15:25 | ERPHSYRPT ---
- History of Present Illness Historian: patient Patient Subjective Stated Complaint: Pt states that she ate some robina and began vomiting and then said there was blood in it, pt states that her abdomen hurt bad last night due to no bowel movements in a week and a half but ended up having a good movement, pt is 18.4 weeks Triage Nursing Assessment: Pt brought self to the ER, hypertensive, denies being nauseous at this time, pulses normal, abdomen not tender with palpatation, rates overall abdomen pain as 3/10, doesn't appear to be in any distress Physician History: 25 yo wf [id number] preg presents w N/V/hematemesis. Pt denies any nausea/abdominal pain/vag bleeding/vag dc/melena/hematochezia/dysuria/hematuria. Timing/Duration: other (Noon today) Quality: other (No ab pain) Pain Radiation: no radiation Severity of Pain-Max: none Severity of Pain-Current: none Modifying Factors: Improves With: nothing Associated Symptoms: denies symptoms, nausea Previous symptoms: no prior history Allergies/Adverse Reactions: adhesive tape Adverse Reaction (Mild, Verified 07/25/20 14:53) Rash Home Medications: Vits W-Ca,Fe,FA(<1Mg) [] 1 each PO DAILY 05/06/20 [History] Aspirin EC 81 mg [Ecotrin 81 mg] 81 mg PO DAILY 07/25/20 [History] Magnesium Citrate 125 mg PO DAILY 07/25/20 [History] Hx Tetanus, Diphtheria Vaccination/Date Given: No Hx Influenza Vaccination/Date Given: No Hx Pneumococcal Vaccination/Date Given: No Travel Risk - International Travel Have you traveled outside of the country in past 3 weeks: No - Coronavirus Screening Are you exhibiting any of the following symptoms?: No Close contact with a COVID-19 positive Pt in past 14-21 Days: No - Vaccine Status Have you recieved a Covid-19 vaccination: No - Review of Systems Constitutional: No Symptoms Eyes: No Symptoms Ears, Nose, & Throat: No Symptoms Respiratory: No Symptoms Cardiac: No Symptoms Abdominal/Gastrointestinal: No Symptoms, Nausea, Hematemesis Genitourinary Symptoms: No Symptoms Musculoskeletal: No Symptoms Skin: No Symptoms Neurological: No Symptoms Psychological: No Symptoms Endocrine: No Symptoms Hematologic/Lymphatic: No Symptoms Immunological/Allergic: No Symptoms - Past Medical History Pertinent Past Medical History: Yes Neurological History: Seizures, Other ENT History: No Pertinent History Cardiac History: No Pertinent History Respiratory History: No Pertinent History Endocrine Medical History: No Pertinent History Musculoskeletal History: No Pertinent History, Other GI Medical History: Colitis History: No Pertinent History Psycho-Social History: Anxiety, Depression Female Reproductive Disorders: No Pertinent History Other Medical History: HAS HISTORY OF HEADACHES HAS BEEN WORKED UP FOR STOMACH PROBLEMS, hx of syncope, Hx of seizures. Has nodule on left wrist. - Past Surgical History Past Surgical History: Yes Neuro Surgical History: No Pertinent History Cardiac: No Pertinent History Respiratory: No Pertinent History Gastrointestinal: Other Genitourinary: No Pertinent History Musculoskeletal: No Pertinent History Female Surgical History: Section Other Surgical History: endoscopy to check gastric samples. (Pt states I have a history of when I eat I get sick.) pt states unknown results. colonoscopy - Social History Smoking Status: Current every day smoker How long have you smoked: 8 yrs Exposure to second hand smoke: No Drug Use: marijuana Patient Lives Alone: No Significant Family History: no pertinent family hx - Female History Hx Now: Yes Expected Date of Delivery: 01/11/21 - Nursing Vital Signs Nursing Vital Signs: Initial Vital Signs Temperature 98.5 F 07/25/20 14:45 Pulse Rate 85 07/25/20 14:45 Blood Pressure 155/84 07/25/20 14:45 O2 Sat by Pulse Oximetry 98 07/25/20 14:45 Pain Scale Pain Intensity 2 - Physical Exam General Appearance: no apparent distress Eye Exam: PERRL/EOMI, eyes nml inspection Ears, Nose, Throat Exam: normal ENT inspection, TMs normal, pharynx normal, moist mucous membranes Neck Exam: normal inspection, non-tender, supple, full range of motion, No meningismus, No mass, No Brudzinski Respiratory Exam: normal breath sounds, lungs clear, airway intact, No respiratory distress Cardiovascular Exam: regular rate/rhythm, normal heart sounds, normal peripheral pulses, No murmur Gastrointestinal/Abdomen Exam: soft, normal bowel sounds Back Exam: normal inspection, normal range of motion, No CVA tenderness Extremity Exam: normal inspection, normal range of motion Neurologic Exam: alert, oriented x 3, cooperative, manager gift II-XII nml as tested, normal mood/affect, nml cerebellar function, nml station & gait, sensation nml Skin Exam: normal color, warm, dry Lymphatic Exam: No adenopathy SpO2 Interpretation: normal SpO2: 98 O2 Delivery: Room Air - Course Nursing assessment & vital signs reviewed: Yes Ordered Tests: Active Orders 24 hr Category Date Time Status CBC W DIFF Stat Lab 07/25/20 15:14 Completed Medication Summary Discontinued Medications Generic Name Dose Route Start Last Admin Trade Name Sosa PRN Reason Stop Dose Admin Sodium Chloride 1,000 mls @ 999 mls/hr 07/25/20 15:13 07/25/20 16:20 Sodium Chloride 0.9% 1000 Ml IV 07/25/20 16:13 Infused .Q1H1M STA Infusion Sodium Chloride Confirm 07/25/20 15:16 Sodium Chloride 0.9% 1000 Ml Administered 07/25/20 15:17 Dose 1,000 mls @ ud .ROUTE .STK-MED ONE Lab/Rad Data: Laboratory Result Diagrams 07/25/20 15:14 Laboratory Results 07/25/20 Range/Units 15:14 WBC 13.0 H (4.0-10.5) K/mm3 RBC 4.39 (4.1-5.4) M/mm3 Hgb 12.2 (12.0-16.0) gm/dl Hct 37.3 (35-47) % MCV 85.0 (78-100) fl MCH 27.8 (26-32) pg MCHC 32.7 (32-36) g/dl RDW 12.7 (11.5-14.0) % Plt Count 343 (150-450) K/mm3 MPV 11.7 H (7.5-11.0) fl Gran % 76.2 H (36.0-66.0) % Eos # (Auto) 0.14 (0-0.5) Absolute Lymphs (auto) 2.21 (1.0-4.6) Absolute Monos (auto) 0.72 (0.0-1.3) Lymphocytes % 17.0 L (24.0-44.0) % Monocytes % 5.5 (0.0-12.0) % Eosinophils % 1.1 (0.00-5.0) % Basophils % 0.2 (0.0-0.4) % Absolute Granulocytes 9.90 H (1.4-6.9) Basophils # 0.03 (0-0.4) - Progress Progress Note: 07/25/20 15:58 1L NS bolus - Departure Departure Disposition: Home Clinical Impression: Nausea & vomiting Condition: Stable Critical Care Time: No Referrals: DOCTOR,NO FAMILY [Primary Care Provider] - JESUS BRUSH DO [ACTIVE STAFF] - Instructions: Nausea and Vomiting, Adult (DC) Additional Instructions: Fluids Rest Follow up with Dr. Brush Advance diet slowly Return to ER for increasing abdominal pain/unremitting nausea-vomiting/blood in emesis or in stool
[2020-07-25 15:58] VITALS: O2SAT 98
[2020-07-25 16:22] VITALS: BP 129/76; PULSE 74
== END 2020-07-25 16:37 | disposition home or self-care (01) ==
LOC: ED 14:41
DX: R11.2 Nausea with vomiting, unspecified (principal)
CPT/HCPCS: 36000; 36415; 85025; 96360; 99284

== ENCOUNTER 2020-08-29 11:20 | Observation (INO) | payer OTHER ==
[2020-08-29 12:30] LABS: Absolute Neutrophil Ct (ANC) 13.32 (1.4-6.9); BASOPHIL % 0.2 % (0.0-0.4); Basophil (Absolute #) 0.04 (0-0.4); Eosinophil % 0.8 % (0.00-5.0); Eosinophil (Absolute #) 0.14 (0-0.5); Hematocrit 35.6 % (35-47); Hemoglobin 11.4 gm/dl (12.0-16.0); Lymphocyte (Absolute #) 2.52 (1.0-4.6); Mean Cell Volume 86.6 fl (78-100); Mean Corpuscular Hemoglobin 27.7 pg (26-32); Mean Platelet Volume 11.1 fl (7.5-11.0); Monocyte (Absolute #) 0.77 (0.0-1.3); Monocytes % 4.6 % (0.0-12.0); Neutrophil % 79.4 % (36.0-66.0); Platelet Count 337 K/mm3 (150-450); Red Blood Count 4.11 M/mm3 (4.1-5.4); White Blood Count 16.8 K/mm3 (4.0-10.5)
[2020-08-29 12:46] LABS: ALBUMIN 3.5 g/dL (3.5-5.0); ALKALINE PHOSPHATASE 71 U/L (38-126); ANION GAP 9.4 MEQ/L (5-15); BLOOD UREA NITROGEN 9 mg/dL (7-17); CHLORIDE 103 mmol/L (98-107); Calcium 9.1 mg/dL (8.4-10.2); Carbon Dioxide 26 mmol/L (22-30); EST GLOMERULAR FILTRATION RATE > 60.0 ML/MIN; Glucose 88 mg/dL (74-106); Potassium 4.2 mmol/L (3.5-5.1); SGOT/AST 14 U/L (14-36); SGPT/ALT 11 U/L (0-35); SODIUM 134 mmol/L (137-145); Total Protein 6.3 g/dL (6.3-8.2)
[2020-08-29 12:48] LABS: Creatinine, Urine Random 201.1 mg/dl
[2020-08-29 14:19] VITALS: O2SAT 97
[2020-08-29 14:21] VITALS: BP 132/73; PULSE 83
== END 2020-08-29 13:55 | disposition home or self-care (01) ==
LOC: OB 11:20
PROVIDERS: ADMIT Obstetrics & Gynecology; ATTEND Obstetrics & Gynecology
DX: Z34.82 Encounter for supervision of other normal pregnancy, second trimester (principal); Z3A.23 23 weeks gestation of pregnancy; R03.0 Elevated blood-pressure reading, without diagnosis of hypertension
CPT/HCPCS: 36415; 80053; 82570; 84156; 84550; 85025; G0378

== ENCOUNTER 2020-12-06 15:19 | Inpatient (IN) | payer OTHER ==
[2020-12-06 17:00] LABS: Amphetamine,Urine NEGATIVE (NEGATIVE); Barbiturate,Urine NEGATIVE (NEGATIVE); Benzodiazepine,Urine NEGATIVE (NEGATIVE); Cocaine,Urine NEGATIVE (NEGATIVE); Methadone,Urine NEGATIVE (NEGATIVE); Opiate,Urine NEGATIVE (NEGATIVE); PCP,Urine NEGATIVE (NEGATIVE); THC,Urine NEGATIVE (NEGATIVE)
[2020-12-06 17:53] LABS: Appearance SLIGHTLY CLOUDY (CLEAR); Bilirubin NEGATIVE (NEGATIVE); Blood NEGATIVE Ery/ul (0-5); Epithelial Cells RARE /HPF (FEW); Glucose NEGATIVE (NEGATIVE); Ketones NEGATIVE (NEGATIVE); Leukocyte Esterase NEGATIVE (NEGATIVE); Mucus SLIGHT /HPF (NEGATIVE); Nitrite NEGATIVE (NEGATIVE); Protein,Urine Dip NEGATIVE (Negative); Specific Gravity 1.023 (1.005-1.025); Urobilinogen NEGATIVE mg/dL (0-1); WBC 0-2 /HPF (0-5)
[2020-12-06] MEDS ORDERED: TRANDATE 20 MG/4 ML SYRINGE IV ONE (18:38)
[2020-12-06 19:13] LABS: Absolute Neutrophil Ct (ANC) 13.67 (1.4-6.9); BASOPHIL % 0.2 % (0.0-0.4); Basophil (Absolute #) 0.03 (0-0.4); Eosinophil % 0.5 % (0.00-5.0); Eosinophil (Absolute #) 0.09 (0-0.5); Hematocrit 36.7 % (35-47); Hemoglobin 11.8 gm/dl (12.0-16.0); Lymphocyte (Absolute #) 2.27 (1.0-4.6); Lymphocytes % 13.7 % (24.0-44.0); Mean Cell Volume 83.2 fl (78-100); Mean Corpuscular Hemoglobin 26.8 pg (26-32); Mean Corpuscular Hgb Concent. 32.2 g/dl (32-36); Mean Platelet Volume 11.5 fl (7.5-11.0); Monocyte (Absolute #) 0.57 (0.0-1.3); Monocytes % 3.4 % (0.0-12.0); Neutrophil % 82.2 % (36.0-66.0); Platelet Count 344 K/mm3 (150-450); Red Blood Count 4.41 M/mm3 (4.1-5.4); White Blood Count 16.6 K/mm3 (4.0-10.5)
[2020-12-06 19:21] LABS: ALBUMIN 3.4 g/dL (3.5-5.0); ALKALINE PHOSPHATASE 86 U/L (38-126); ANION GAP 12.9 MEQ/L (5-15); BLOOD UREA NITROGEN 10 mg/dL (7-17); CHLORIDE 105 mmol/L (98-107); Calcium 9.1 mg/dL (8.4-10.2); Carbon Dioxide 20 mmol/L (22-30); Creatinine 1 0.65 mg/dL (0.52-1.04); EST GLOMERULAR FILTRATION RATE > 60.0 ML/MIN; Glucose 114 mg/dL (74-106); Potassium 3.6 mmol/L (3.5-5.1); SGOT/AST 15 U/L (14-36); SGPT/ALT 10 U/L (0-35); SODIUM 134 mmol/L (137-145); Total Protein 6.6 g/dL (6.3-8.2)
[2020-12-06 19:42] LABS: Creatinine, Urine Random 164.4 mg/dl; TP, Urine Random < 5.0 mg/dl (<12)
[2020-12-06 19:52] LABS: ABO TYPING O; RH TYPING POSITIVE
[2020-12-06 19:56] LABS: Antibody Screen POSITIVE (NEGATIVE)
[2020-12-06] MEDS: Magnesium Sulfate 40 Gm/1000 Ml H2O Premix*** 1,000 ML IV SCH (21:31)
[2020-12-06] MEDS: Lactated Ringers 1,000 ML IV SCH (21:31)
[2020-12-06] MEDS ORDERED: Zofran 4 MG/2 ML VIAL IV PRN (23:58)
[2020-12-07 00:26] LABS: INR 0.93 (0.8-3.0)
[2020-12-07 00:47] LABS: Appearance CLEAR (CLEAR); Bacteria NONE SEEN /HPF (NEGATIVE); Bilirubin NEGATIVE (NEGATIVE); Blood MODERATE Ery/ul (0-5); Epithelial Cells RARE /HPF (FEW); Glucose NEGATIVE (NEGATIVE); Ketones NEGATIVE (NEGATIVE); Leukocyte Esterase NEGATIVE (NEGATIVE); Mucus SLIGHT /HPF (NEGATIVE); Nitrite NEGATIVE (NEGATIVE); Protein,Urine Dip NEGATIVE (Negative); Specific Gravity 1.014 (1.005-1.025); Urobilinogen NEGATIVE mg/dL (0-1); WBC 0-2 /HPF (0-5)
[2020-12-07] MEDS: TYLENOL EXTRA STRENGTH 500 MG PO PRN (01:49)
[2020-12-07] MEDS: Magnesium Sulfate 40 Gm/1000 Ml H2O Premix*** 1,000 ML IV SCH ×3 (04:33→19:55)
[2020-12-07 04:40] LABS: CROSS MATCH (PRBC) COMPATIBLE (COMPATIBLE)
[2020-12-07] MEDS ORDERED: LANSINOH 40 GM TOP PRN (05:22)
[2020-12-07] MEDS ORDERED: Dulcolax 10 MG SUPP PR PRN (05:22)
[2020-12-07] MEDS ORDERED: CEFAZOLIN 2 GM-D5W BAG** 2 GM/50 ML ML IV SCH (06:00)
[2020-12-07] MEDS ORDERED: Pepcid 20 MG VIAL IV SCH (06:00)
[2020-12-07] MEDS ORDERED: SOD CITRATE-CITRIC ACID SOLN PO SCH (06:00)
[2020-12-07] MEDS ORDERED: Reglan 10 MG/2 ML IV SCH (06:00)
[2020-12-07] MEDS: Lactated Ringers 1,000 ML IV SCH ×4 (06:23→19:55)
[2020-12-07] MEDS ORDERED: Zofran 4 MG/2 ML VIAL ONE (06:41)
[2020-12-07] MEDS ORDERED: Astramorph-Pf 5 MG/10 ML ONE (06:41)
[2020-12-07] MEDS ORDERED: PHENYLEPHRINE HCL ONE (06:41)
[2020-12-07] MEDS ORDERED: Pitocin 10 UNITS/ML ONE (07:26)
[2020-12-07] MEDS ORDERED: Sodium Chloride 0.9% 10 ML FLUSH Syringe IJ PRN (07:38)
[2020-12-07] MEDS ORDERED: BENADRYL 50 MG/ML IV PRN (07:38)
[2020-12-07] MEDS ORDERED: MORPHINE SULFATE 2 MG INJ IV PRN (07:38)
[2020-12-07] MEDS ORDERED: Narcan 0.4 MG/ML IV PRN (07:38)
[2020-12-07] MEDS ORDERED: CLARITIN 10 MG PO PRN (07:38)
[2020-12-07] MEDS ORDERED: HOLD NARCOTIC ANALGESICS AND SEDATIVES X24 HR MC PRN (07:38)
[2020-12-07] MEDS ORDERED: Nubain 10 MG/ML IV PRN (07:38)
[2020-12-07] MEDS ORDERED: DEMEROL 50 MG IV PRN (07:38)
[2020-12-07] MEDS ORDERED: Naropin 0.5% 30 ML VIAL ONE (07:40)
[2020-12-07] MEDS ORDERED: Decadron 4 MG INJ ONE (07:40)
[2020-12-07] MEDS ORDERED: Ephedrine Sulfate 50 MG/ML ONE (07:40)
[2020-12-07] MEDS ORDERED: Versed 2 MG/2 ML Injection ONE (07:42)
[2020-12-07] MEDS ORDERED: Lactated Ringers 1,000 ML IV ONE (08:21)
[2020-12-07] MEDS: FERREX 150 PO SCH (13:26)
[2020-12-07] MEDS: Colace 100 MG PO SCH ×2 (13:26→22:27)
[2020-12-07] MEDS: CEFAZOLIN 2 GM-D5W BAG** 2 GM/50 ML ML IV SCH ×2 (15:22→22:27)
[2020-12-07] MEDS: Dextrose 5%-Lr IV Solution 1000 ML 1,000 ML IV SCH (19:55)
[2020-12-07] MEDS: Mylicon 80MG PO PRN (22:26)
[2020-12-08] MEDS: PERCOCET TABLET 5/325MG PO PRN ×3 (00:34→05:52)
[2020-12-08] MEDS: MOTRIN 400 MG PO PRN ×3 (01:09→20:15)
[2020-12-08 04:55] LABS: Absolute Neutrophil Ct (ANC) 14.17 (1.4-6.9); BASOPHIL % 0.2 % (0.0-0.4); Basophil (Absolute #) 0.04 (0-0.4); Eosinophil % 0.3 % (0.00-5.0); Eosinophil (Absolute #) 0.05 (0-0.5); Hemoglobin 10.5 gm/dl (12.0-16.0); Lymphocyte (Absolute #) 3.04 (1.0-4.6); Lymphocytes % 16.2 % (24.0-44.0); Mean Cell Volume 83.8 fl (78-100); Mean Corpuscular Hemoglobin 26.6 pg (26-32); Mean Corpuscular Hgb Concent. 31.8 g/dl (32-36); Mean Platelet Volume 11.3 fl (7.5-11.0); Monocyte (Absolute #) 1.48 (0.0-1.3); Monocytes % 7.9 % (0.0-12.0); Neutrophil % 75.4 % (36.0-66.0); Platelet Count 336 K/mm3 (150-450); Red Blood Count 3.94 M/mm3 (4.1-5.4); White Blood Count 18.8 K/mm3 (4.0-10.5)
[2020-12-08] MEDS: ENOXAPARIN SODIUM SQ SCH (08:32)
[2020-12-08] MEDS: Colace 100 MG PO SCH ×2 (09:40→20:15)
[2020-12-08] MEDS: FERREX 150 PO SCH (09:40)
[2020-12-08] MEDS ORDERED: ENOXAPARIN SODIUM SQ SCH (10:00)
[2020-12-08 10:09] LABS: HBsAg Screen Negative (Negative); Hep A Ab, IgM Negative (Negative); Hep B Core Ab, IgM Negative (Negative)
[2020-12-08 10:24] LABS: Hep C Virus Ab <0.1 s/co ratio (0.0-0.9)
[2020-12-08] MEDS: Mylicon 80MG PO PRN ×2 (11:31→20:15)
[2020-12-08] MEDS: NORCO 5/325 MG PO PRN ×3 (11:31→21:28)
--- NOTE | 2020-12-08 12:18 | OP ---
SURGERY DATE: 12/07/2020 SURGERY TIME: 653 PREOPERATIVE DIAGNOSIS: 1. INTRAUTERINE AT 37 WEEKS AND 6 DAYS WITH PREECLAMPSIA WITH SEVERE FEATURES. 2. MULTIPARITY DESIRING TUBAL STERILIZATION. POSTOPERATIVE DIAGNOSIS: 1. INTRAUTERINE AT 37 WEEKS AND 6 DAYS WITH PREECLAMPSIA WITH SEVERE FEATURES. 2. MULTIPARITY DESIRING TUBAL STERILIZATION. PROCEDURE: 1. Repeat section, low flap transverse uterine incision, Pfannenstiel skin incision, bilateral tubal sterilization. SURGEON: Dr. Tesfaye Brush. LAND DEVELOPMENT PROJECT MANAGER: Trevor, surgical techs. ANESTHESIA: Spinal. ESTIMATED BLOOD LOSS: 300 cc. COMPLICATIONS: None. FINDINGS: The risks, benefits, indications, and alternatives of the procedure were reviewed with the patient prior to the procedure. Patient understood the risk of infection, bleeding, bowel injury, bladder injury, ureteral injury, uterine perforation, pelvic infection, thromboembolic disorder, possible future and ectopic that may be associated with this procedure. Desires to have this procedure as a possible means to alleviate her current medical condition. DESCRIPTION OF PROCEDURE: At this point, the patient was taken to the operating room where her spinal anesthesia was found to be adequate. She was then prepared and draped in the normal sterile fashion in the dorsal supine position with leftward tilt. A Pfannenstiel skin incision was made with the scalpel and carried through to the underlying layers of fascia with a Bovie. The fascia was then incised in the midline and the incision extended laterally with the Lofton scissors. The superior aspect of the fascial incision was then grasped with the Abdoulaye clamps, elevated, and the underlying rectus muscles dissected off bluntly. Attention was then turned to the inferior aspect of this incision which in a similar fashion was grasped, tented up with the Abdoulaye clamps, and the rectus muscles were dissected off bluntly. The rectus muscles were then in the midline. The peritoneum identified, tented up, and entered sharply with the Metzenbaum scissors. The peritoneal incision was then extended superiorly and inferiorly with good visualization of the bladder. The bladder blade was then inserted and the vesicouterine peritoneum identified, grasped with the pickups, and entered sharply with the Metzenbaum scissors. This incision was then extended laterally and the bladder flap created digitally. The bladder blade was then reinserted and the lower uterine segment incised in the transverse fashion with a scalpel. The uterine incision was then extended laterally with the bandage scissors. The bladder blade was then removed and the 's head was delivered atraumatically. The nose and mouth were suctioned with the bulb suction and the cord clamped and cut. The infant was then handed off to the awaiting nurses. The placenta was then removed manually. The uterus was exteriorized and cleared of all clots and debris. The uterine incision was repaired with 1-0 chromic in a running locked fashion. At this point, a [place] clamp was used. The right fallopian tube was identified and the tube was then followed out to the fimbria. The Shilpa clamp was used to grasp the tube approximately 4 cm from the corneal region. A 3 cm segment of tube was then ligated with a free tie of plain gut and excised. Good hemostasis was noted. The same procedure left tube. The left tube was then ligated with a 3 cm segment excised in a similar fashion. Excellent hemostasis was noted. From this point, the uterus was then returned to the abdomen. The gutters were cleared of all clots. From this point, the peritoneal muscle closed in an interrupted fashion using 2-0 chromic suture. The fascia was reapproximated with 0 Vicryl in running fashion. The subcutaneous layer was closed with 3-0 plain suture and the skin was closed with absorbable francois called INSORB. The patient tolerated the procedure well. Sponge, lap, needle, and instrument counts were correct X 2. The patient was then taken to the recovery room in stable condition. The patient delivered a live baby boy at 0729. 's were 8 at 1 minute, 9 at 5 minutes.
[2020-12-09] MEDS: TYLENOL EXTRA STRENGTH 500 MG PO PRN (00:52)
[2020-12-09] MEDS: NORCO 5/325 MG PO PRN (00:53)
[2020-12-09] MEDS ORDERED: Ambien 10 MG PO PRN (00:58)
[2020-12-09] MEDS: MOTRIN 400 MG PO PRN (02:54)
[2020-12-09] MEDS: Mylicon 80MG PO PRN (02:54)
[2020-12-09] MEDS ORDERED: NORCO 5/325 MG PO PRN (03:02)
[2020-12-09 08:00] VITALS: O2SAT 100
--- NOTE | 2020-12-09 08:40 | XRAY ---
Indication: Right chest pain and short of breath. Status post section 2 days ago. Pulmonary embolus. Multiple contiguous axial images obtained through the chest using 80 cc Isovue 370 contrast and PE protocol. Comparison: None There is suboptimal opacification of the pulmonary arteries limiting evaluation of the more distal lobar and segmental branches. No obvious central pulmonary embolus. Heart not enlarged. Aorta is normal in course and caliber. No pathologic mediastinal/hilar lymphadenopathy. Lungs demonstrates minimal bilateral dependent atelectasis. No suspicious pulmonary mass, infiltrate, or effusion. Bony thorax intact. Limited upper abdomen demonstrates tiny subdiaphragmatic free air presumed from recent section. Also fatty liver and 14.5 cm splenomegaly. Impression: 1. Pulmonary embolus evaluation limited due to suboptimal contrast opacification. No obvious central pulmonary embolus. 2. No acute cardiopulmonary abnormalities. 3. Incidental tiny right subdiaphragmatic free air presumed postoperative, fatty liver, and splenomegaly. Comment: Preliminary interpretation made by [facility]. No critical discrepancy.
[2020-12-09] MEDS: FERREX 150 PO SCH (09:56)
[2020-12-09] MEDS: Colace 100 MG PO SCH (09:57)
[2020-12-09] MEDS: ENOXAPARIN SODIUM SQ SCH (09:57)
[2020-12-09] MEDS ORDERED: Trandate 100 MG PO SCH (10:00)
--- NOTE | 2020-12-09 12:27 | PCM.DS ---
Discharge Summary Date of Admission: 12/06/20 15:19 Admitting Physician: JESUS MARTIN DO Consults: Consults on Case 12/07/20 05:22 Notify Physician ROUTINE 12/07/20 07:38 Notify Anesthesia Provider PRN 12/09/20 08:00 Navigation ONCE Primary Care Provider: NO FAMILY DOCTOR Allergies Allergies adhesive tape Adverse Reaction (Mild, Verified 07/25/20 14:53) Rash Hospital Summary - Hospital Course Hospital Course: PT ADMITTED ON DECEMBER 09 FOR ELEVATED BP AND WHO WAS 37 5/7 WKS GESTATION WHERE LABS WERE NOTED TO BE NORMAL. MFM CONSULTED AND WAS RECOMMENDED TO DELIVER AT THIS TIME. PT NOTED HAVING ANTI K ANTIBODY AND PT WAS CROSSMATCHED FOR 3 UNTIS. PT SUBSEQUENTLY STARTED ON MGSO4 FOR WORSENING BLOOD PRESSURE AND WAS GIVEN DOSES OF IV LABETOLOL. PT UNDERWENT REPEAT CSECTION WITH TUBAL STERILIZATION ON DEC 07 AND HAD DELIVERED BABY BOY WITHOUT COMPLICATION. DURING POSTOP PERIOD DID WELL AND WAS GIVEN LOVENOX 40MG ON POD 1 AND WAS GIVEN CONTINUED DOSE OF MGSO4 AND WAS DISCONTINUED IN THE EVENING. PT NOTED DEVELOPING ELEVATED BP ON DEC 09 AND WAS STARTED ON LABETOLOL 200MG TID TO BE DISCHARGED HOME ON THIS. PT RECEIVED AN IV DOSE OF LABETOLOL ON DEC 09 FOR BP 164/77. AT THIS TIME PT STABL E FOR DISCHARGE AND WAS ADVISED TO FU IN OFFICE IN 1 WK FOR BP EVALUATION. PT GIVEN NORCO AND LABETOLOL UPON DISCHARGE. - Vitals & Intake/Output Vital Signs: Vital Signs Temperature 97.6 F 12/09/20 04:40 Pulse Rate 77 12/09/20 06:40 Respiratory Rate 18 12/09/20 04:40 Blood Pressure 133/64 12/09/20 06:40 O2 Sat by Pulse Oximetry 100 12/09/20 04:40 Intake & Output: Intake & Output 12/07/20 12/08/20 12/09/20 12/10/20 11:59 11:59 11:59 11:59 Intake Total 1787 4510 2500 Output Total 1375 200 Balance 412 4310 2500 Weight 115.212 kg - Lab Result Diagrams: 12/08/20 04:47 12/06/20 18:52 Micro Results-Entire Visit: Microbiology 12/07/20 00:30 Urine Culture - Final Urine, Indwelling Catheter NO GROWTH - Radiology Exams Ordered Rad Exams-Entire Visit: Radiology Procedures Category Date Time Status CHEST WITH CONTRAST [CT] Stat Exams 12/09/20 01:21 Completed - Procedures and Test Procedures and Tests throughout Hospitalization: Therapy Orders & Screens 12/06/20 17:13 Smoking Cessation Education ONCE Comment: Diagnosis: IUP Smoking Status: Current every day smoker How long have you smoked: 8 yrs Have you smoked in the past 12 months: Yes Approximately how many cigarettes per day: 10 Do you dip or chew tobacco: No 12/07/20 08:00 Standby ROUTINE Comment: Diagnosis: IUP Final Diagnosis/Problem List - Final Discharge Diagnosis/Problem (1) S/P repeat low transverse Current Visit: Yes Status: Acute Code(s): Z98.891 - HISTORY OF UTERINE SCAR FROM PREVIOUS SURGERY (2) Preeclampsia Current Visit: Yes Status: Acute Code(s): O14.90 - UNSPECIFIED PRE- ECLAMPSIA, UNSPECIFIED TRIMESTER - Discharge Disposition: Home, Self-Care Condition: Stable Prescriptions: New Hydrocodone/Acetaminophen [Hydrocodone-Acetamin 5-325 mg] 1 tab PO Q6HPRN PRN #30 tablet MDD 4 PRN Reason: Pain Labetalol HCl [Trandate] 200 mg PO TID 30 Days tablet No Action Vits W-Ca,Fe,FA(<1Mg) [] 1 each PO DAILY Aspirin EC 81 mg [Ecotrin 81 mg] 81 mg PO DAILY Follow up with: JESUS MARTIN DO [ACTIVE STAFF] - 1 Week
[2020-12-09 16:35] VITALS: BP 163/77; PULSE 75
[2020-12-09] MEDS ORDERED: TRANDATE 20 MG/4 ML SYRINGE IV ONE (16:39)
== END 2020-12-09 14:50 | disposition home or self-care (01) | DRG 785 ==
LOC: OB 15:19 → OBSVTOIN 15:19
PROVIDERS: ADMIT Obstetrics & Gynecology; ATTEND Obstetrics & Gynecology
PROC: 10D00Z1 Extraction of Products of Conception, Low, Open Approach (ICD-10-PCS; principal; 2020-12-07)
PROC: 0UB70ZZ Excision of Bilateral Fallopian Tubes, Open Approach (ICD-10-PCS; 2020-12-07)
DX: O34.219 Maternal care for unspecified type scar from previous cesarean delivery (principal); N85.8 Other specified noninflammatory disorders of uterus; O14.14 Severe pre-eclampsia complicating childbirth; Z3A.37 37 weeks gestation of pregnancy; Z37.0 Single live birth; Z30.2 Encounter for sterilization; R03.0 Elevated blood-pressure reading, without diagnosis of hypertension
CPT/HCPCS: 36415; 58611; 59514; 64488; 71260; 76937; 76942; 80053; 80074; 80307; 81001; 82570; 83735; 84156; 84550; 85025; 85610; 85730; 86850; 86870; 86900; 86901; 86922; 87086; 88302; 94799; J0690; J1100; J1200; J1650; J2250; J2270; J2274; J2370; J2405; J2590; J2795; L0625; A9270-GY

== ENCOUNTER 2020-12-09 21:33 | Emergency (ER) | payer OTHER ==
--- NOTE | 2020-12-09 21:35 | ERPHSYRPT ---
- History of Present Illness Time Seen by Provider: 12/09/20 21:34 Source: patient Exam Limitations: no limitations Physician History: This is a 25-year-old obese white female who was admitted in the hospital and had preeclampsia. She is a patient of Haven Galindo nurse practitioner as well as Dr. Brush, bariatric physician. Patient was discharged from the hospital today. She was having hypertension. Patient was placed on labetalol intravenously followed by labetalol prescription orally as an outpatient. Patient took 1 single dose of her labetalol which she has her first dose after discharge today. Patient complains of a headache. She has taken her systolic blood pressure readings after her labetalol and they have ranged in the 160s to 180s. Patient contacted her bariatric physician who sent the patient here to be evaluated and treated. Patient denies any visual changes. She denies chest pain. She denies shortness of breath. She has no nausea vomiting or diarrhea. She has no fevers or chills. Timing/Duration: today Severity: mild (To moderate) Associated Symptoms: headaches, No nausea, No vomiting, No shortness of breath, No chest pain, No weakness Allergies/Adverse Reactions: adhesive tape Adverse Reaction (Mild, Verified 12/09/20 22:21) Rash Home Medications: Vits W-Ca,Fe,FA(<1Mg) [] 1 each PO DAILY 05/06/20 [History] Aspirin EC 81 mg [Ecotrin 81 mg] 81 mg PO DAILY 07/25/20 [History] Hx Tetanus, Diphtheria Vaccination/Date Given: No Hx Influenza Vaccination/Date Given: No Hx Pneumococcal Vaccination/Date Given: No Travel Risk - International Travel Have you traveled outside of the country in past 3 weeks: No - Coronavirus Screening Are you exhibiting any of the following symptoms?: No Close contact with a COVID-19 positive Pt in past 14-21 Days: No - Vaccine Status Have you recieved a Covid-19 vaccination: No - Review of Systems Constitutional: No Symptoms Eyes: No Symptoms Ears, Nose, & Throat: No Symptoms Respiratory: No Symptoms Cardiac: No Symptoms Abdominal/Gastrointestinal: No Symptoms Genitourinary Symptoms: No Symptoms Musculoskeletal: No Symptoms Skin: No Symptoms Neurological: Headache Psychological: No Symptoms Endocrine: No Symptoms Hematologic/Lymphatic: No Symptoms Immunological/Allergic: No Symptoms All Other Systems: Reviewed and Negative - Past Medical History Pertinent Past Medical History: Yes Neurological History: Seizures, Other ENT History: No Pertinent History Cardiac History: No Pertinent History Respiratory History: No Pertinent History Endocrine Medical History: No Pertinent History Musculoskeletal History: No Pertinent History, Other GI Medical History: Colitis History: No Pertinent History Psycho-Social History: Anxiety, Depression Female Reproductive Disorders: No Pertinent History Other Medical History: HAS HISTORY OF HEADACHES HAS BEEN WORKED UP FOR STOMACH PROBLEMS, hx of syncope, Hx of seizures. Has nodule on left wrist. - Past Surgical History Past Surgical History: Yes Neuro Surgical History: No Pertinent History Cardiac: No Pertinent History Respiratory: No Pertinent History Gastrointestinal: Other Genitourinary: No Pertinent History Musculoskeletal: No Pertinent History Female Surgical History: Section Other Surgical History: endoscopy to check gastric samples. (Pt states I have a history of when I eat I get sick.) pt states unknown results. colonoscopy - Social History Smoking Status: Current every day smoker How long have you smoked: 10 Exposure to second hand smoke: No Drug Use: none Patient Lives Alone: No Significant Family History: no pertinent family hx - Nursing Vital Signs Nursing Vital Signs: Initial Vital Signs Temperature 98.7 F 12/09/20 22:10 Pulse Rate 83 12/09/20 22:10 Respiratory Rate 16 12/09/20 22:10 Blood Pressure 170/112 12/09/20 22:10 O2 Sat by Pulse Oximetry 98 12/09/20 22:10 Pain Scale Pain Intensity 4 - Physical Exam General Appearance: no apparent distress, alert, anxiety, obese Eye Exam: PERRL/EOMI, eyes nml inspection Ears, Nose, Throat Exam: normal ENT inspection, moist mucous membranes Neck Exam: normal inspection, non-tender, supple, full range of motion Respiratory Exam: normal breath sounds, lungs clear, airway intact, No chest tenderness, No respiratory distress Cardiovascular Exam: regular rate/rhythm, normal heart sounds, normal peripheral pulses Gastrointestinal/Abdomen Exam: soft, normal bowel sounds, No tenderness Pelvic Exam: not done Rectal Exam: not done Back Exam: normal inspection, normal range of motion, No CVA tenderness, No vertebral tenderness Extremity Exam: normal inspection, normal range of motion, pelvis stable Neurologic Exam: alert, oriented x 3, cooperative, vp rheumatology II-XII nml as tested, normal mood/affect, nml cerebellar function, nml station & gait, sensation nml Skin Exam: normal color, warm, dry Lymphatic Exam: No adenopathy SpO2 Interpretation: normal O2 Delivery: Room Air - Course Nursing assessment & vital signs reviewed: Yes EKG Interpreted by Me: RATE (82), Sinus Rhythm, NORMAL AXIS, NORMAL INTERVALS, NORMAL QRS, NORMAL ST-T, Other (No acute ischemic changes. When compared to EKG dated 05/06/2020, today's EKG shows resolution of prolonged WI interval.) Ordered Tests: Active Orders 24 hr Category Date Time Status IV Insertion STAT Care 12/09/20 22:24 Active Pulse Oximetry (ED) STAT Care 12/09/20 22:24 Active HEAD WITHOUT CONTRAST [CT] Stat Exams 12/09/20 22:50 Taken CBC W DIFF Stat Lab 12/09/20 22:40 Completed CMP Stat Lab 12/09/20 22:40 Completed CULTURE,URINE Stat Lab 12/10/20 00:06 Received MAGNESIUM Stat Lab 12/09/20 22:40 Completed UA W/RFX UR CULTURE Stat Lab 12/10/20 00:06 Completed Medication Summary Generic Name Dose Route Start Last Admin Trade Name Freq PRN Reason Stop Dose Admin Hydralazine HCl 5 mg 12/09/20 22:31 12/10/20 01:15 Apresoline 20 Mg/Ml Inj IV 01/08/21 22:30 5 mg [id number] PRN Administration HYPERTENSION Discontinued Medications Generic Name Dose Route Start Last Admin Trade Name Freq PRN Reason Stop Dose Admin Magnesium Sulfate/Dextrose 100 mls @ 200 mls/hr 12/09/20 22:30 12/09/20 22:35 Magnesium 1 Gm / 100 Ml D5w IV 12/09/20 22:59 200 mls/hr STAT ONE Administration Magnesium Sulfate/Dextrose Confirm 12/09/20 22:34 Magnesium 1 Gm / 100 Ml D5w Administered 12/09/20 22:35 Dose 100 mls @ ud IV .STK-MED ONE Ceftriaxone Sodium/Dextrose 1 g in 50 mls @ 100 mls/hr 12/10/20 01:36 12/10/20 02:32 Rocephin 1 Gm-D5w 50 Ml Bag IV 12/10/20 02:05 Infused STAT STA Infusion Ceftriaxone Sodium/Dextrose Confirm 12/10/20 01:41 Rocephin 1 Gm-D5w 50 Ml Bag Administered 12/10/20 01:42 Dose 1 g in 50 mls @ ud IV .STK-MED ONE Labetalol HCl 10 mg 12/10/20 00:35 12/10/20 00:41 Trandate 20 Mg/4 Ml Syringe IV 12/10/20 00:36 10 mg STAT ONE Administration Labetalol HCl Confirm 12/10/20 00:39 Trandate 20 Mg/4 Ml Syringe Administered 12/10/20 00:40 Dose 20 mg IV .STK-MED ONE Morphine Sulfate 4 mg 12/10/20 01:36 12/10/20 01:44 Morphine Sulfate 4 Mg Inj IV 12/10/20 01:37 4 mg STAT ONE Administration Morphine Sulfate Confirm 12/10/20 01:41 Morphine Sulfate 4 Mg Inj Administered 12/10/20 01:42 Dose 4 mg .ROUTE .STK-MED ONE Ondansetron HCl 4 mg 12/10/20 01:36 12/10/20 01:44 Zofran 4 Mg/2 Ml Vial IV 12/10/20 01:37 4 mg STAT ONE Administration Ondansetron HCl Confirm 12/10/20 01:40 Zofran 4 Mg/2 Ml Vial Administered 12/10/20 01:41 Dose 4 mg .ROUTE .STK-MED ONE Lab/Rad Data: Laboratory Result Diagrams 12/09/20 22:40 12/09/20 22:40 Laboratory Results 12/10/20 12/09/20 12/09/20 Range/Units 00:06 22:40 22:40 WBC 14.1 H (4.0-10.5) K/mm3 RBC 3.99 L (4.1-5.4) M/mm3 Hgb 10.7 L (12.0-16.0) gm/dl Hct 33.9 L (35-47) % MCV 85.0 (78-100) fl MCH 26.8 (26-32) pg MCHC 31.6 L (32-36) g/dl RDW 14.3 H (11.5-14.0) % Plt Count 343 (150-450) K/mm3 MPV 11.6 H (7.5-11.0) fl Gran % 72.1 H (36.0-66.0) % Eos # (Auto) 0.27 (0-0.5) Absolute Lymphs (auto) 2.68 (1.0-4.6) Absolute Monos (auto) 0.93 (0.0-1.3) Lymphocytes % 19.0 L (24.0-44.0) % Monocytes % 6.6 (0.0-12.0) % Eosinophils % 1.9 (0.00-5.0) % Basophils % 0.4 (0.0-0.4) % Absolute Granulocytes 10.20 H (1.4-6.9) Basophils # 0.06 (0-0.4) Sodium 137 (137-145) mmol/L Potassium 4.1 (3.5-5.1) mmol/L Chloride 103 (98-107) mmol/L Carbon Dioxide 24 (22-30) mmol/L Anion Gap 13.8 (5-15) MEQ/L BUN 10 (7-17) mg/dL Creatinine 0.59 (0.52-1.04) mg/dL Estimated GFR > 60.0 ML/MIN Glucose 85 (74-106) mg/dL Calcium 9.3 (8.4-10.2) mg/dL Magnesium 1.8 (1.6-2.3) mg/dL Total Bilirubin 0.30 (0.2-1.3) mg/dL AST 18 (14-36) U/L ALT 10 (0-35) U/L Alkaline Phosphatase 79 (38-126) U/L Serum Total Protein 6.7 (6.3-8.2) g/dL Albumin 3.5 (3.5-5.0) g/dL Urine Color YELLOW (YELLOW) Urine Appearance SLIGHTLY CLOUDY (CLEAR) Urine pH 8.0 (5-6) Ur Specific Wilson 1.008 (1.005-1.025) Urine Protein 30 (Negative) Urine Ketones NEGATIVE (NEGATIVE) Urine Blood LARGE (0-5) Shola/ul Urine Nitrite NEGATIVE (NEGATIVE) Urine Bilirubin NEGATIVE (NEGATIVE) Urine Urobilinogen NEGATIVE (0-1) mg/dL Ur Leukocyte Esterase SMALL (NEGATIVE) Urine WBC (Auto) 26-50 (0-5) /HPF Urine RBC (Auto) >101 (0-2) /HPF U Epithel Cells (Auto) NONE (FEW) /HPF Urine Bacteria (Auto) RARE (NEGATIVE) /HPF Urine Culture Reflexed YES (NO) Urine Glucose NEGATIVE (NEGATIVE) mg/dL - Progress Progress: improved, re-examined Progress Note: 12/10/20 00:38 CAT scan of the head without contrast shows no acute intracranial abnormality. 12/10/20 01:35 Patient states that her headache is improving but she does have a lot of postsurgical pain and would like some medication for this. Her blood pressure at this point in time is slowly improving. Patient does have a urinary tract i nfection we will give her a dose of intravenous Rocephin. Patient wants to go home but we will wait and see what her blood pressure does over the next hour and if it maintains low and Dr. Brush allows her to be discharged then she will go home. 12/10/20 02:41 Patient is feeling much better. Patient wants to go home. I did discuss the patient and the patient's condition, vital signs, results of laboratory and radiographic work-up with Dr. BRUSH her bariatric physician. He feels that she can be discharged to home. We will write a prescription for antibiotics to treat her urinary tract infection and to write for some hydralazine antihypertensive oral medication for breakthrough elevated blood pressure. Discussed with : Nadya Counseled pt/family regarding: lab results, diagnosis, need for follow-up, rad results - Departure Departure Disposition: Home Clinical Impression: UTI (urinary tract infection), hypertension Condition: Stable Critical Care Time: Yes Critical Care Time(excluding separately billable procedures): Critical 30-74 mins Referrals: GUCCI GALINDO [Primary Care Provider] - Additional Instructions: Drink plenty of fluids. Take your antibiotic medication as prescribed. Continue your labetalol oral blood pressure medication at 8 AM, 2 PM and 8 PM each day. Take your blood pressure readings at 11 AM and 5 PM daily and write it down in a daily log. If your systolic blood pressure (high number) is greater than 150 or your diastolic (low number) is greater than 100, take the hydralazine medication. Follow-up with your bariatric physician in his office on 12/12/2020 Prescriptions: Cefdinir 300 mg PO BID 7 Days #14 cap Hydralazine HCl 10 mg PO BID PRN #20 tablet PRN Reason: Elevated Blood Pressure
[2020-12-09] MEDS ORDERED: Magnesium 1 Gm / 100 Ml D5W*** 100 ML IV ONE ×2 (22:30→22:34)
[2020-12-09] MEDS ORDERED: APRESOLINE 20 MG/ML INJ ONE (22:34)
[2020-12-09] MEDS: APRESOLINE 20 MG/ML INJ IV PRN (22:35)
[2020-12-09 22:50] LABS: BASOPHIL % 0.4 % (0.0-0.4); Basophil (Absolute #) 0.06 (0-0.4); Eosinophil % 1.9 % (0.00-5.0); Eosinophil (Absolute #) 0.27 (0-0.5); Hematocrit 33.9 % (35-47); Hemoglobin 10.7 gm/dl (12.0-16.0); Lymphocyte (Absolute #) 2.68 (1.0-4.6); Mean Corpuscular Hemoglobin 26.8 pg (26-32); Mean Corpuscular Hgb Concent. 31.6 g/dl (32-36); Mean Platelet Volume 11.6 fl (7.5-11.0); Monocyte (Absolute #) 0.93 (0.0-1.3); Monocytes % 6.6 % (0.0-12.0); Neutrophil % 72.1 % (36.0-66.0); Platelet Count 343 K/mm3 (150-450); Red Blood Count 3.99 M/mm3 (4.1-5.4); Red Cell Distribution Width 14.3 % (11.5-14.0); White Blood Count 14.1 K/mm3 (4.0-10.5)
[2020-12-09 23:04] LABS: ALBUMIN 3.5 g/dL (3.5-5.0); ALKALINE PHOSPHATASE 79 U/L (38-126); ANION GAP 13.8 MEQ/L (5-15); BLOOD UREA NITROGEN 10 mg/dL (7-17); CHLORIDE 103 mmol/L (98-107); Calcium 9.3 mg/dL (8.4-10.2); Carbon Dioxide 24 mmol/L (22-30); Creatinine 1 0.59 mg/dL (0.52-1.04); EST GLOMERULAR FILTRATION RATE > 60.0 ML/MIN; Glucose 85 mg/dL (74-106); MAGNESIUM 1.8 mg/dL (1.6-2.3); Potassium 4.1 mmol/L (3.5-5.1); SGOT/AST 18 U/L (14-36); SGPT/ALT 10 U/L (0-35); SODIUM 137 mmol/L (137-145); Total Protein 6.7 g/dL (6.3-8.2)
[2020-12-10] MEDS ORDERED: APRESOLINE 20 MG/ML INJ ONE ×2 (00:12→01:13)
[2020-12-10] MEDS: APRESOLINE 20 MG/ML INJ IV PRN ×2 (00:13→01:15)
[2020-12-10] MEDS ORDERED: TRANDATE 20 MG/4 ML SYRINGE IV ONE ×2 (00:35→00:39)
[2020-12-10 01:30] LABS: Appearance SLIGHTLY CLOUDY (CLEAR); Bacteria RARE /HPF (NEGATIVE); Bilirubin NEGATIVE (NEGATIVE); Blood LARGE Ery/ul (0-5); Glucose NEGATIVE (NEGATIVE); Ketones NEGATIVE (NEGATIVE); Leukocyte Esterase SMALL (NEGATIVE); Nitrite NEGATIVE (NEGATIVE); Protein,Urine Dip 30 (Negative); RBC >101 /HPF (0-2); Specific Gravity 1.008 (1.005-1.025); Urobilinogen NEGATIVE mg/dL (0-1); WBC 26-50 /HPF (0-5)
[2020-12-10] MEDS ORDERED: Zofran 4 MG/2 ML VIAL IV ONE (01:36)
[2020-12-10] MEDS ORDERED: ROCEPHIN 1 Gm-D5w 50 ml Bag** 1 G/50 ML IVPB IV STA (01:36)
[2020-12-10] MEDS ORDERED: MORPHINE SULFATE 4 MG INJ IV ONE (01:36)
[2020-12-10] MEDS ORDERED: Zofran 4 MG/2 ML VIAL ONE (01:40)
[2020-12-10] MEDS ORDERED: MORPHINE SULFATE 4 MG INJ ONE (01:41)
[2020-12-10] MEDS ORDERED: ROCEPHIN 1 Gm-D5w 50 ml Bag** 1 G/50 ML IVPB IV ONE (01:41)
[2020-12-10 02:31] VITALS: O2SAT 98
[2020-12-10 02:57] VITALS: BP 129/85; PULSE 74
--- NOTE | 2020-12-10 07:14 | XRAY ---
Indication: Headache. High blood pressure. Multiple contiguous axial images obtained through the head without contrast. Comparison: August 12, 2017. Normal appearing brain parenchyma, ventricles, and bony calvarium. Visualized paranasal sinuses and mastoid air cells are clear. Impression: Continued normal CT head without contrast exam. Comment: Preliminary interpretation made by [facility]. No critical discrepancy.
== END 2020-12-10 03:28 | disposition home or self-care (01) ==
LOC: ED 21:33
DX: N39.0 Urinary tract infection, site not specified (principal); O16.5 Unspecified maternal hypertension, complicating the puerperium; Z79.899 Other long term (current) drug therapy
CPT/HCPCS: 36000; 36415; 70450; 80053; 81001; 83735; 85025; 87077; 87086; 87186; 94760; 96374; 96375; 96376; 99284; 99291; J0360; J0696; J2270; J2405; J3475

== ENCOUNTER 2021-05-03 23:03 | Emergency (ER) | payer OTHER ==
--- NOTE | 2021-05-03 23:38 | ERPHSYRPT ---
- History of Present Illness Time Seen by Provider: 05/03/21 23:12 Historian: patient Exam Limitations: no limitations Physician History: 26-year-old female presented to the ER with chief complaint of left flank pain off and on for the last 2 weeks. Patient reports this episode started almost an hour and a half, continuous, moderate intensity in the left flank with radiation to the left groin with out any associated nausea vomiting diarrhea. Denies any urinary symptoms. Does report having irregular vaginal bleeding lately. Denies any history of kidney stones. Timing/Duration: hour(s), constant, sudden, worse Activities at Onset: rest Quality: burning, sharpness Abdominal Pain Onset Location: LLQ, flank Pain Radiation: groin Severity of Pain-Max: moderate Severity of Pain-Current: mild Modifying Factors: Improves With: nothing Associated Symptoms: back Previous symptoms: no prior history Allergies/Adverse Reactions: adhesive tape Adverse Reaction (Mild, Verified 05/03/21 23:25) Rash Home Medications: No Reportable Medications [No Reported Medications] 05/03/21 [History] Hx Tetanus, Diphtheria Vaccination/Date Given: No Hx Influenza Vaccination/Date Given: No Hx Pneumococcal Vaccination/Date Given: No Travel Risk - Vaccine Status Have you recieved a Covid-19 vaccination: No - Review of Systems Constitutional: No Symptoms Eyes: No Symptoms Ears, Nose, & Throat: No Symptoms Respiratory: No Symptoms Cardiac: No Symptoms Abdominal/Gastrointestinal: Abdominal Pain Genitourinary Symptoms: No Symptoms Musculoskeletal: No Symptoms Skin: No Symptoms Neurological: No Symptoms Psychological: No Symptoms Endocrine: No Symptoms Hematologic/Lymphatic: No Symptoms Immunological/Allergic: No Symptoms - Past Medical History Pertinent Past Medical History: Yes Neurological History: Seizures, Other ENT History: No Pertinent History Cardiac History: No Pertinent History Respiratory History: No Pertinent History Endocrine Medical History: No Pertinent History Musculoskeletal History: No Pertinent History, Other GI Medical History: Colitis History: No Pertinent History Psycho-Social History: Anxiety, Depression Female Reproductive Disorders: No Pertinent History Other Medical History: HAS HISTORY OF HEADACHES HAS BEEN WORKED UP FOR STOMACH PROBLEMS, hx of syncope, Hx of seizures. Has nodule on left wrist. - Past Surgical History Past Surgical History: Yes Neuro Surgical History: No Pertinent History Cardiac: No Pertinent History Respiratory: No Pertinent History Gastrointestinal: Other Genitourinary: No Pertinent History Musculoskeletal: No Pertinent History Female Surgical History: Section Other Surgical History: endoscopy to check gastric samples. (Pt states I have a history of when I eat I get sick.) pt states unknown results. colonoscopy - Social History Smoking Status: Current every day smoker How long have you smoked: 10 Exposure to second hand smoke: No Drug Use: none Patient Lives Alone: No Significant Family History: no pertinent family hx - Female History Hx Now: (unkn) - Nursing Vital Signs Nursing Vital Signs: Initial Vital Signs Temperature 97.5 F 05/03/21 23:26 Pulse Rate 99 H 05/03/21 23:26 Respiratory Rate 20 05/03/21 23:26 Blood Pressure 194/142 05/03/21 23:26 O2 Sat by Pulse Oximetry 100 05/03/21 23:26 Pain Scale Pain Intensity 5 - Physical Exam General Appearance: no apparent distress Eye Exam: PERRL/EOMI Ears, Nose, Throat Exam: normal ENT inspection Neck Exam: normal inspection, full range of motion Respiratory Exam: normal breath sounds, lungs clear Cardiovascular Exam: regular rate/rhythm, normal heart sounds Gastrointestinal/Abdomen Exam: soft, normal bowel sounds, tenderness (Left flank) Back Exam: normal inspection, normal range of motion, CVA tenderness Extremity Exam: normal inspection, normal range of motion Neurologic Exam: alert, oriented x 3, cooperative Skin Exam: normal color SpO2 Interpretation: normal SpO2: 98 O2 Delivery: Room Air Ordered Tests: Active Orders 24 hr Category Date Time Status ABDOMEN AND PELVIS W/0 CONTRAS [CT] Stat Exams 05/04/21 00:01 Taken CBC W DIFF Stat Lab 05/03/21 23:40 Completed CMP Stat Lab 05/03/21 23:40 Completed HCG,QUALITATIVE URINE Stat Lab 05/03/21 23:40 Completed LIPASE Stat Lab 05/03/21 23:40 Completed UA W/RFX UR CULTURE Stat Lab 05/03/21 23:40 Completed Lab/Rad Data: Laboratory Result Diagrams 05/03/21 23:40 05/03/21 23:40 Laboratory Results 05/03/21 05/03/21 05/03/21 Range/Units 23:40 23:40 23:40 WBC 15.1 H (4.0-10.5) K/mm3 RBC 4.74 (4.1-5.4) M/mm3 Hgb 12.5 (12.0-16.0) gm/dl Hct 39.0 (35-47) % MCV 82.3 (78-100) fl MCH 26.4 (26-32) pg MCHC 32.1 (32-36) g/dl RDW 14.9 H (11.5-14.0) % Plt Count 386 (150-450) K/mm3 MPV 10.9 (7.5-11.0) fl Gran % 63.7 (36.0-66.0) % Eos # (Auto) 0.27 (0-0.5) Absolute Lymphs (auto) 4.09 (1.0-4.6) Absolute Monos (auto) 1.06 (0.0-1.3) Lymphocytes % 27.2 (24.0-44.0) % Monocytes % 7.0 (0.0-12.0) % Eosinophils % 1.8 (0.00-5.0) % Basophils % 0.3 (0.0-0.4) % Absolute Granulocytes 9.59 H (1.4-6.9) Basophils # 0.05 (0-0.4) Sodium 139 (137-145) mmol/L Potassium 3.7 (3.5-5.1) mmol/L Chloride 106 (98-107) mmol/L Carbon Dioxide 25 (22-30) mmol/L Anion Gap 10.9 (5-15) MEQ/L BUN 12 (7-17) mg/dL Creatinine 0.71 (0.52-1.04) mg/dL Estimated GFR > 60.0 ML/MIN Glucose 92 (74-106) mg/dL Calcium 8.7 (8.4-10.2) mg/dL Total Bilirubin 0.20 (0.2-1.3) mg/dL AST 24 (14-36) U/L ALT 23 (0-35) U/L Alkaline Phosphatase 80 (38-126) U/L Serum Total Protein 6.8 (6.3-8.2) g/dL Albumin 3.9 (3.5-5.0) g/dL Lipase 62 (23-300) U/L Urine Color (YELLOW) Urine Appearance (CLEAR) Urine pH (5-6) Ur Specific [place] (1.005-1.025) Urine Protein (Negative) Urine Ketones (NEGATIVE) Urine Blood (0-5) Shola/ul Urine Nitrite (NEGATIVE) Urine Bilirubin (NEGATIVE) Urine Urobilinogen (0-1) mg/dL Ur Leukocyte Esterase (NEGATIVE) Urine WBC (Auto) (0-5) /HPF Urine RBC (Auto) (0-2) /HPF U Epithel Cells (Auto) (FEW) /HPF Urine Bacteria (Auto) (NEGATIVE) /HPF Urine Mucus (Auto) (NEGATIVE) /HPF Urine Culture Reflexed (NO) Urine Glucose (NEGATIVE) mg/dL Urine HCG, Qual NEGATIVE (Negative) 05/03/21 Range/Units 23:40 WBC (4.0-10.5) K/mm3 RBC (4.1-5.4) M/mm3 Hgb (12.0-16.0) gm/dl Hct (35-47) % MCV (78-100) fl MCH (26-32) pg MCHC (32-36) g/dl RDW (11.5-14.0) % Plt Count (150-450) K/mm3 MPV (7.5-11.0) fl Gran % (36.0-66.0) % Eos # (Auto) (0-0.5) Absolute Lymphs (auto) (1.0-4.6) Absolute Monos (auto) (0.0-1.3) Lymphocytes % (24.0-44.0) % Monocytes % (0.0-12.0) % Eosinophils % (0.00-5.0) % Basophils % (0.0-0.4) % Absolute Granulocytes (1.4-6.9) Basophils # (0-0.4) Sodium (137-145) mmol/L Potassium (3.5-5.1) mmol/L Chloride (98-107) mmol/L Carbon Dioxide (22-30) mmol/L Anion Gap (5-15) MEQ/L BUN (7-17) mg/dL Creatinine (0.52-1.04) mg/dL Estimated GFR ML/MIN Glucose (74-106) mg/dL Calcium (8.4-10.2) mg/dL Total Bilirubin (0.2-1.3) mg/dL AST (14-36) U/L ALT (0-35) U/L Alkaline Phosphatase (38-126) U/L Serum Total Protein (6.3-8.2) g/dL Albumin (3.5-5.0) g/dL Lipase (23-300) U/L Urine Color YELLOW (YELLOW) Urine Appearance SLIGHTLY CLOUDY (CLEAR) Urine pH 6.0 (5-6) Ur Specific [place] 1.026 (1.005-1.025) Urine Protein NEGATIVE (Negative) Urine Ketones NEGATIVE (NEGATIVE) Urine Blood NEGATIVE (0-5) Shola/ul Urine Nitrite NEGATIVE (NEGATIVE) Urine Bilirubin NEGATIVE (NEGATIVE) Urine Urobilinogen NEGATIVE (0-1) mg/dL Ur Leukocyte Esterase NEGATIVE (NEGATIVE) Urine WBC (Auto) 0-2 (0-5) /HPF Urine RBC (Auto) NONE (0-2) /HPF U Epithel Cells (Auto) RARE (FEW) /HPF Urine Bacteria (Auto) NONE (NEGATIVE) /HPF Urine Mucus (Auto) SLIGHT (NEGATIVE) /HPF Urine Culture Reflexed NO (NO) Urine Glucose NEGATIVE (NEGATIVE) mg/dL Urine HCG, Qual (Negative) - Progress Progress: pain not gone completely, re-examined Progress Note: 05/04/21 02:01 26-year-old is evaluated for left flank pain. She was given Toradol for sym ptomatic relief. Work-up showed white count of 15, unremarkable chemistries. No UTI. CT showed enlarged uterus 10 cm with some hepatomegaly but no acute findings in the left flank/left lower quadrant area. Does not have any peritoneal signs. Recommended outpatient follow-up with OB and primary care for reevaluation. Discussed signs symptoms of worsening needing return to ER which she seems understanding. Counseled pt/family regarding: lab results, diagnosis, need for follow-up, rad results - Departure Departure Disposition: Home Clinical Impression: Left flank pain, Enlarged uterus Condition: Stable Critical Care Time: No Referrals: GUCCI MOMIN NP [Primary Care Provider] - Follow up/PCP as directed (1-2 days for evaluation) JESUS MARTIN DO [ACTIVE STAFF] - Follow up/PCP as directed (Call tomorrow for appointment) Instructions: Acute Abdomen (Belly Pain), Adult (DC) Additional Instructions: Take Tylenol/ibuprofen as needed for pain. Follow-up with primary care/[facility] for reevaluation. Return to ER for worsening pain, difficulty urination, fever, intractable vomiting etc.
[2021-05-04 00:07] LABS: Absolute Neutrophil Ct (ANC) 9.59 (1.4-6.9); Basophil (Absolute #) 0.05 (0-0.4); Eosinophil % 1.8 % (0.00-5.0); Eosinophil (Absolute #) 0.27 (0-0.5); Hemoglobin 12.5 gm/dl (12.0-16.0); Lymphocyte (Absolute #) 4.09 (1.0-4.6); Lymphocytes % 27.2 % (24.0-44.0); Mean Cell Volume 82.3 fl (78-100); Mean Corpuscular Hemoglobin 26.4 pg (26-32); Mean Corpuscular Hgb Concent. 32.1 g/dl (32-36); Mean Platelet Volume 10.9 fl (7.5-11.0); Monocyte (Absolute #) 1.06 (0.0-1.3); Neutrophil % 63.7 % (36.0-66.0); Platelet Count 386 K/mm3 (150-450); Red Blood Count 4.74 M/mm3 (4.1-5.4); Red Cell Distribution Width 14.9 % (11.5-14.0); White Blood Count 15.1 K/mm3 (4.0-10.5)
[2021-05-04 00:49] LABS: ALBUMIN 3.9 g/dL (3.5-5.0); ALKALINE PHOSPHATASE 80 U/L (38-126); ANION GAP 10.9 MEQ/L (5-15); BLOOD UREA NITROGEN 12 mg/dL (7-17); CHLORIDE 106 mmol/L (98-107); Calcium 8.7 mg/dL (8.4-10.2); Carbon Dioxide 25 mmol/L (22-30); Creatinine 1 0.71 mg/dL (0.52-1.04); EST GLOMERULAR FILTRATION RATE > 60.0 ML/MIN; Glucose 92 mg/dL (74-106); LIPASE 62 U/L (23-300); Potassium 3.7 mmol/L (3.5-5.1); SGOT/AST 24 U/L (14-36); SGPT/ALT 23 U/L (0-35); SODIUM 139 mmol/L (137-145); Total Protein 6.8 g/dL (6.3-8.2)
[2021-05-04 01:08] LABS: Appearance SLIGHTLY CLOUDY (CLEAR); Bilirubin NEGATIVE (NEGATIVE); Blood NEGATIVE Ery/ul (0-5); Epithelial Cells RARE /HPF (FEW); Glucose NEGATIVE (NEGATIVE); Ketones NEGATIVE (NEGATIVE); Leukocyte Esterase NEGATIVE (NEGATIVE); Mucus SLIGHT /HPF (NEGATIVE); Nitrite NEGATIVE (NEGATIVE); Protein,Urine Dip NEGATIVE (Negative); Specific Gravity 1.026 (1.005-1.025); Urobilinogen NEGATIVE mg/dL (0-1); WBC 0-2 /HPF (0-5)
[2021-05-04] MEDS ORDERED: TORAdol 30 mg Injection IM ONE (02:01)
[2021-05-04] MEDS ORDERED: TORAdol 30 mg Injection ONE (02:02)
[2021-05-04 02:05] VITALS: O2SAT 98
[2021-05-04 02:10] VITALS: BP 160/106; PULSE 72
--- NOTE | 2021-05-04 08:48 | XRAY ---
Indication: Left flank pain. Vaginal bleeding. Multiple contiguous axial images obtained through the abdomen and pelvis without contrast using renal stone protocol. Comparison: January 11, 2020. Lung bases remain clear. Heart is not enlarged. No renal calculus or evidence for obstructive uropathy in either system. Noncontrasted stomach and bowel loops nonobstructed with normal appendix. No free fluid/air. Again hepatomegaly measuring 19.9 cm and splenomegaly measuring 13 cm. Remaining liver, gallbladder, pancreas, spleen, adrenal glands, kidneys, ureters, bladder, uterus, and aorta are unremarkable for noncontrast exam. Osseous structures intact. No ventral or inguinal hernias. Impression: 1. Continued negative renal calculus or evidence for obstructive uropathy. 2. Again incidental hepatosplenomegaly. 3. Remaining CT abdomen/pelvis without contrast exam is negative. Comment: Preliminary interpretation made by [facility]. No critical discrepancy.
== END 2021-05-04 02:18 | disposition home or self-care (01) ==
LOC: ED 23:03
DX: N85.2 Hypertrophy of uterus (principal); R10.32 Left lower quadrant pain; Z72.0 Tobacco use
CPT/HCPCS: 36415; 74176; 80053; 81001; 83690; 84703; 85025; 96372; 99284; J1885

== ENCOUNTER 2021-05-05 14:20 | Emergency (ER) | payer OTHER ==
[2021-05-05] MEDS ORDERED: Sodium Chloride 0.9% 1000 ML 1,000 ML IV SCH (14:45)
[2021-05-05 15:11] LABS: Absolute Neutrophil Ct (ANC) 7.03 (1.4-6.9); Basophil (Absolute #) 0.04 (0-0.4); Eosinophil % 1.8 % (0.00-5.0); Hematocrit 40.4 % (35-47); Hemoglobin 12.8 gm/dl (12.0-16.0); Lymphocyte (Absolute #) 2.91 (1.0-4.6); Lymphocytes % 26.7 % (24.0-44.0); Mean Cell Volume 81.9 fl (78-100); Mean Corpuscular Hgb Concent. 31.7 g/dl (32-36); Monocyte (Absolute #) 0.72 (0.0-1.3); Monocytes % 6.6 % (0.0-12.0); Neutrophil % 64.5 % (36.0-66.0); Platelet Count 361 K/mm3 (150-450); Red Blood Count 4.93 M/mm3 (4.1-5.4); Red Cell Distribution Width 14.9 % (11.5-14.0); White Blood Count 10.9 K/mm3 (4.0-10.5)
[2021-05-05 15:13] LABS: Appearance SLIGHTLY CLOUDY (CLEAR); Bilirubin NEGATIVE (NEGATIVE); Blood NEGATIVE Ery/ul (0-5); Epithelial Cells RARE /HPF (FEW); Glucose NEGATIVE (NEGATIVE); Ketones NEGATIVE (NEGATIVE); Leukocyte Esterase NEGATIVE (NEGATIVE); Mucus SLIGHT /HPF (NEGATIVE); Nitrite NEGATIVE (NEGATIVE); Protein,Urine Dip NEGATIVE (Negative); Urobilinogen NEGATIVE mg/dL (0-1)
[2021-05-05] MEDS ORDERED: Sodium Chloride 0.9% 1000 ML 1,000 ML ONE (15:37)
--- NOTE | 2021-05-05 15:58 | XRAY ---
Indication: Right lower quadrant pain. 5 months . Two-dimensional transvaginal pelvic sonogram performed. Comparison: August 17, 2016 Uterus anteverted measuring 9.2 x 5.4 x 7.0 cm. Lower uterine segment demonstrates tiny 2-3 mm nabothian cyst. Remaining myometrium homogeneous. Endometrial stripe measures 1.3 cm. No endometrial cavity mass or fluid collection. Right ovary measures 3.7 x 2.6 x 3.4 cm and the left measures 3.5 x 2.3 x 3.0 cm. Normal follicular cysts in perfusion bilaterally. No suspicious solid adnexal mass. Tiny cul-de-sac fluid presumed physiologic from rupture/leaking cyst. Impression: Tiny physiologic cul-de-sac fluid and tiny nabothian cyst. Remaining transvaginal pelvic sonogram is negative.
--- NOTE | 2021-05-05 16:08 | ERPHSYRPT ---
- History of Present Illness Time Seen by Provider: 05/05/21 14:35 Historian: patient Exam Limitations: no limitations Patient Subjective Stated Complaint: pt was here 2 days ago and diagnosed with an enlarged uterus and she continues to have pain and cannot get into see Dr Brush until the Triage Nursing Assessment: Pt brought self to the ER, hypertensive, rates pain as 6/10, pt began bleeding and having lower abdominal pain about a week and a half ago and thought it was her cysts but it wasn't and it was not her period, she bled for 2 days, pt is sexually active and had her last child 5 months ago and had a tubal at that time, pulses normal, skin n/w/d, doesn't appear to be in any distress Physician History: Patient is a 26-year-old 5 months 2 para 2 white female who presents with pelvic pain in the suprapubic area. She was seen a few days ago was found on CT scan to have an enlarged uterus and was told that was causing her pain and to follow-up with While he however he will not be available until the . She returns now with continued pain with a history that about 2 weeks ago she had bleeding vaginally which she thought was related to a ruptured cyst however that did not was not apparently confirmed by the CT. Timing/Duration: day(s) (2) Activities at Onset: none Quality: cramping Abdominal Pain Onset Location: suprapubic Pain Radiation: back Severity of Pain-Max: moderate Severity of Pain-Current: moderate Modifying Factors: Improves With: nothing Associated Symptoms: back Previous symptoms: same symptoms as today Allergies/Adverse Reactions: adhesive tape Adverse Reaction (Mild, Verified 05/05/21 14:44) Rash Hx Tetanus, Diphtheria Vaccination/Date Given: No Hx Influenza Vaccination/Date Given: No Hx Pneumococcal Vaccination/Date Given: No Travel Risk - International Travel Have you traveled outside of the country in past 3 weeks: No - Coronavirus Screening Are you exhibiting any of the following symptoms?: No Close contact with a COVID-19 positive Pt in past 14-21 Days: No - Vaccine Status Have you recieved a Covid-19 vaccination: No - Review of Systems Constitutional: No Fever, No Chills Eyes: No Symptoms Ears, Nose, & Throat: No Symptoms Respiratory: No Cough, No Dyspnea Cardiac: No Chest Pain, No Edema, No Syncope Abdominal/Gastrointestinal: No Abdominal Pain, No Nausea, No Vomiting, No Diarrhea Genitourinary Symptoms: Vaginal Bleeding, No Dysuria Musculoskeletal: No Back Pain, No Neck Pain Skin: No Rash Neurological: No Dizziness, No Focal Weakness, No Sensory Changes Psychological: No Symptoms Endocrine: No Symptoms All Other Systems: Reviewed and Negative - Past Medical History Pertinent Past Medical History: Yes Neurological History: Seizures, Other ENT History: No Pertinent History Cardiac History: No Pertinent History Respiratory History: No Pertinent History Endocrine Medical History: No Pertinent History Musculoskeletal History: No Pertinent History, Other GI Medical History: Colitis History: No Pertinent History Psycho-Social History: Anxiety, Depression Female Reproductive Disorders: No Pertinent History Other Medical History: HAS HISTORY OF HEADACHES HAS BEEN WORKED UP FOR STOMACH PROBLEMS, hx of syncope, Hx of seizures. Has nodule on left wrist. - Past Surgical History Past Surgical History: Yes Neuro Surgical History: No Pertinent History Cardiac: No Pertinent History Respiratory: No Pertinent History Gastrointestinal: Other Genitourinary: No Pertinent History Musculoskeletal: No Pertinent History Female Surgical History: Section Other Surgical History: endoscopy to check gastric samples. (Pt states I have a history of when I eat I get sick.) pt states unknown results. colonoscopy - Social History Smoking Status: Current every day smoker How long have you smoked: 10 Exposure to second hand smoke: Yes Drug Use: none Patient Lives Alone: No Significant Family History: no pertinent family hx - Female History Hx Last Menstrual Period: 04/08/2021 Hx Now: No - Nursing Vital Signs Nursing Vital Signs: Initial Vital Signs Temperature 97.9 F 05/05/21 14:26 Pulse Rate 100 H 05/05/21 14:26 Blood Pressure 170/103 05/05/21 14:26 O2 Sat by Pulse Oximetry 98 05/05/21 14:26 Pain Scale Pain Intensity 6 - Physical Exam General Appearance: mild distress, alert Eye Exam: PERRL/EOMI, eyes nml inspection Ears, Nose, Throat Exam: normal ENT inspection, pharynx normal, moist mucous membranes Neck Exam: normal inspection, non-tender, supple, full range of motion Respiratory Exam: normal breath sounds, lungs clear, No respiratory distress Cardiovascular Exam: regular rate/rhythm, normal heart sounds Gastrointestinal/Abdomen Exam: soft, No tenderness, No mass Back Exam: normal inspection, normal range of motion, No CVA tenderness, No vertebral tenderness Extremity Exam: normal inspection, normal range of motion, pelvis stable Neurologic Exam: alert, oriented x 3, cooperative, normal mood/affect, nml cerebellar function, sensation nml, No motor deficits Skin Exam: normal color, warm, dry SpO2: 98 - Course Nursing assessment & vital signs reviewed: Yes - Radiology Ultrasound Exam Pelvis Ultrasound: Other (Ultrasound showed a relatively normal size uterus and pelvic fluid consistent with possible ruptured ovarian cyst) Ordered Tests: Active Orders 24 hr Category Date Time Status PELVIS TRANS VAGINAL [US] Stat Exams 05/05/21 14:39 Completed CBC W DIFF Stat Lab 05/05/21 14:55 Completed CMP Stat Lab 05/05/21 14:55 Received HCG,QUALITATIVE URINE Stat Lab 05/05/21 14:46 Completed UA W/RFX UR CULTURE Stat Lab 05/05/21 14:46 Completed Medication Summary Generic Name Dose Route Start Last Admin Trade Name Freq PRN Reason Stop Dose Admin Sodium Chloride 1,000 mls @ 100 mls/hr 05/05/21 14:45 05/05/21 15:39 Sodium Chloride 0.9% 1000 Ml IV 06/04/21 14:44 100 mls/hr .Q10H GAURAV Administration Lab/Rad Data: Laboratory Result Diagrams 05/05/21 14:55 Laboratory Results 05/05/21 05/05/21 05/05/21 Range/Units 14:55 14:46 14:46 WBC 10.9 H (4.0-10.5) K/mm3 RBC 4.93 (4.1-5.4) M/mm3 Hgb 12.8 (12.0-16.0) gm/dl Hct 40.4 (35-47) % MCV 81.9 (78-100) fl MCH 26.0 (26-32) pg MCHC 31.7 L (32-36) g/dl RDW 14.9 H (11.5-14.0) % Plt Count 361 (150-450) K/mm3 MPV 11.0 (7.5-11.0) fl Gran % 64.5 (36.0-66.0) % Eos # (Auto) 0.20 (0-0.5) Absolute Lymphs (auto) 2.91 (1.0-4.6) Absolute Monos (auto) 0.72 (0.0-1.3) Lymphocytes % 26.7 (24.0-44.0) % Monocytes % 6.6 (0.0-12.0) % Eosinophils % 1.8 (0.00-5.0) % Basophils % 0.4 (0.0-0.4) % Absolute Granulocytes 7.03 H (1.4-6.9) Basophils # 0.04 (0-0.4) Urine Color YELLOW (YELLOW) Urine Appearance SLIGHTLY CLOUDY (CLEAR) Urine pH 5.0 (5-6) Ur Specific [place] 1.020 (1.005-1.025) Urine Protein NEGATIVE (Negative) Urine Ketones NEGATIVE (NEGATIVE) Urine Blood NEGATIVE (0-5) Shola/ul Urine Nitrite NEGATIVE (NEGATIVE) Urine Bilirubin NEGATIVE (NEGATIVE) Urine Urobilinogen NEGATIVE (0-1) mg/dL Ur Leukocyte Esterase NEGATIVE (NEGATIVE) Urine WBC (Auto) NONE (0-5) /HPF Urine RBC (Auto) NONE (0-2) /HPF U Epithel Cells (Auto) RARE (FEW) /HPF Urine Bacteria (Auto) NONE (NEGATIVE) /HPF Urine Mucus (Auto) SLIGHT (NEGATIVE) /HPF Urine Culture Reflexed NO (NO) Urine Glucose NEGATIVE (NEGATIVE) mg/dL Urine HCG, Qual NEGATIVE (Negative) - Progress Progress: unchanged - Departure Departure Disposition: Home Clinical Impression: Pelvic pain Condition: Stable Critical Care Time: No Referrals: GUCCI MOMIN NP [Primary Care Provider] - Follow up/PCP as directed Instructions: Acute Pelvic Pain (DC) Prescriptions: Hydrocodone/Acetaminophen [Hydrocodone-Acetamin 5-325 mg] 1 tab PO Q6HPRN PRN 3 Days #12 tablet MDD 4 PRN Reason: Pain
[2021-05-05 16:17] VITALS: BP 148/97; PULSE 80; O2SAT 100
== END 2021-05-05 16:40 | disposition home or self-care (01) ==
LOC: ED 14:20
DX: R10.2 Pelvic and perineal pain (principal); F41.9 Anxiety disorder, unspecified; Z72.0 Tobacco use; Z79.891 Long term (current) use of opiate analgesic
CPT/HCPCS: 36415; 76830; 80053; 81001; 84703; 85025; 96360; 99284

== ENCOUNTER 2021-10-10 09:51 | Emergency (ER) | payer OTHER ==
[2021-10-10] MEDS ORDERED: TORAdol 30 mg Injection IV ONE (10:06)
[2021-10-10] MEDS ORDERED: Reglan 10 MG/2 ML IV ONE (10:06)
[2021-10-10] MEDS ORDERED: Sodium Chloride 0.9% 1000 ML 1,000 ML IV STA (10:06)
[2021-10-10] MEDS ORDERED: TORAdol 30 mg Injection ONE (10:17)
[2021-10-10] MEDS ORDERED: Reglan 10 MG/2 ML ONE (10:18)
[2021-10-10] MEDS ORDERED: Sodium Chloride 0.9% 1000 ML 1,000 ML ONE (10:18)
[2021-10-10 11:20] LABS: Absolute Neutrophil Ct (ANC) 8.51 x10^3/uL (1.4-6.9); Basophil (Absolute #) 0.07 x10^3/uL (0-0.4); Eosinophil % 1.1 % (0.00-5.0); Eosinophil (Absolute #) 0.11 x10^3/uL (0-0.5); Hematocrit 42.3 % (35-47); Hemoglobin 13.6 g/dL (12.0-16.0); Lymphocyte (Absolute #) 0.51 x10^3/uL (1.0-4.6); Mean Cell Volume 81.8 fL (78-100); Mean Corpuscular Hemoglobin 26.3 pg (26-32); Mean Corpuscular Hgb Concent. 32.2 g/dL (32-36); Mean Platelet Volume 11.7 fL (7.5-11.0); Monocyte (Absolute #) 0.87 x10^3/uL (0.0-1.3); Monocytes % 8.6 % (0.0-12.0); Neutrophil % 84.1 % (36.0-66.0); Platelet Count 314 x10^3/uL (150-450); Red Blood Count 5.17 x10^6/uL (4.1-5.4); Red Cell Distribution Width 13.5 % (11.5-14.0); White Blood Count 10.1 x10^3/uL (4.0-10.5)
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
[2021-10-10 11:23] LABS: ALBUMIN 4.4 g/dL (3.5-5.0); ALKALINE PHOSPHATASE 78 U/L (38-126); ANION GAP 16.6 MEQ/L (5-15); BLOOD UREA NITROGEN 9 mg/dL (7-17); CHLORIDE 105 mmol/L (98-107); Calcium 9.2 mg/dL (8.4-10.2); Carbon Dioxide 20 mmol/L (22-30); Creatinine 1 0.64 mg/dL (0.52-1.04); EST GLOMERULAR FILTRATION RATE > 60.0 ML/MIN; Glucose 89 mg/dL (74-106); Potassium 4.3 mmol/L (3.5-5.1); SGOT/AST 29 U/L (14-36); SGPT/ALT 24 U/L (0-35); SODIUM 137 mmol/L (137-145); Total Protein 7.7 g/dL (6.3-8.2)
[2021-10-10 11:30] LABS: Appearance CLEAR (CLEAR); Bilirubin NEGATIVE (NEGATIVE); Dipstick done @ ? MAIN LAB; Epithelial Cells RARE /HPF (FEW); Glucose NEGATIVE (NEGATIVE); Ketones NEGATIVE (NEGATIVE); Mucus SLIGHT /HPF (NEGATIVE); Nitrite NEGATIVE (NEGATIVE); Ph 8.5 (5-6); Protein,Urine Dip NEGATIVE (Negative); RBC TRACE-INTACT Ery/ul (0-5); Urobilinogen 0.2 mg/dL (0-1)
[2021-10-10 11:31] LABS: Urine Cultured Indicated? NO
[2021-10-10 11:43] LABS: Slide Review 1 YES
--- NOTE | 2021-10-10 11:45 | XRAY ---
Indication: Pain. Comparison: April 06, 2008 Single PA chest again demonstrates normal heart, lungs, and bony thorax.
--- NOTE | 2021-10-10 11:47 | XRAY ---
Indication: Pain 1 week. Comparison: None 3 view lumbar spine demonstrates 5 lumbar segments in normal alignment with vertebral body heights/disc spaces maintained. Incidental L4 limbus vertebrae. No bony, articular, or soft tissue abnormalities.
--- NOTE | 2021-10-10 11:47 | XRAY ---
Indication: Pain 1 week. Comparison: None 2 view left/right hip obtained. No bony, articular, or soft tissue abnormalities.
[2021-10-10] MEDS ORDERED: SUBLIMAZE 100 MCG/2 ML IV ONE (11:55)
[2021-10-10] MEDS ORDERED: SUBLIMAZE 100 MCG/2 ML ONE (11:59)
[2021-10-10 12:32] LABS: INFLUENZA A NEGATIVE (NEGATIVE); INFLUENZA B NEGATIVE (NEGATIVE); RESPIRATORY SYNCTIAL VIRUS NEGATIVE (Negative); SARS-CoV-2 Xpert Express NEGATIVE (NEGATIVE)
[2021-10-10 13:02] VITALS: BP 136/84; PULSE 90; O2SAT 98
== END 2021-10-10 13:12 | disposition home or self-care (01) ==
LOC: ED 09:51
DX: R50.9 Fever, unspecified (principal); M54.50 Low back pain, unspecified; M25.551 Pain in right hip; M25.552 Pain in left hip; R51.9 Headache, unspecified; Z72.0 Tobacco use; Z28.310 Unvaccinated for COVID-19
CPT/HCPCS: 0241U; 36000; 36415; 71045; 72100; 73521; 80053; 81015; 81025; 83605; 85025; 86308; 96374; 96375; 99284; J1885; J3010

== ENCOUNTER 2022-01-02 14:19 | Emergency (ER) | payer OTHER ==
[2022-01-02] MEDS ORDERED: Zofran 4 MG/2 ML VIAL ONE (14:57)
[2022-01-02] MEDS ORDERED: Sodium Chloride 0.9% 1000 ML 1,000 ML ONE (14:57)
[2022-01-02] MEDS ORDERED: TORAdol 30 mg Injection ONE (14:57)
[2022-01-02] MEDS: Zofran 4 MG/2 ML VIAL IV ONE (14:59)
[2022-01-02] MEDS: Sodium Chloride 0.9% 1000 ML 1,000 ML IV STA (14:59)
[2022-01-02] MEDS: TORAdol 30 mg Injection IV ONE (14:59)
[2022-01-02 15:01] LABS: Absolute Neutrophil Ct (ANC) 6.41 x10^3/uL (1.4-6.9); Basophil (Absolute #) 0.03 x10^3/uL (0-0.4); Eosinophil % 2.2 % (0.00-5.0); Eosinophil (Absolute #) 0.19 x10^3/uL (0-0.5); Hematocrit 44.6 % (35-47); Hemoglobin 14.4 g/dL (12.0-16.0); Lymphocyte (Absolute #) 1.46 x10^3/uL (1.0-4.6); Lymphocytes % 16.6 % (24.0-44.0); Mean Cell Volume 82.6 fL (78-100); Mean Corpuscular Hemoglobin 26.7 pg (26-32); Mean Corpuscular Hgb Concent. 32.3 g/dL (32-36); Mean Platelet Volume 10.4 fL (7.5-11.0); Monocyte (Absolute #) 0.67 x10^3/uL (0.0-1.3); Monocytes % 7.6 % (0.0-12.0); Platelet Count 377 x10^3/uL (150-450); Red Cell Distribution Width 13.2 % (11.5-14.0); White Blood Count 8.8 x10^3/uL (4.0-10.5)
--- NOTE | 2022-01-02 15:01 | ERPHSYRPT ---
- History of Present Illness Time Seen by Provider: 01/02/22 14:35 Source: patient Exam Limitations: no limitations Patient Subjective Stated Complaint: Pt c/o of lower left back pain that felt like it was burning, pain that was in her lower left quadrant of abdomen is now in her upper right quadrant just below her breast for the past 4 days, and also has a severe headache that began this morning along with a stiff neck Triage Nursing Assessment: Pt brought to the ER by her father, hypertensive, tachycardic, rates overall pain as 8/10, was here last month for bad teeth which had went to her lymph nodes and she still hasn't went to the dentist to take care of the teeth, woke this morning with a stiff neck, pt was constipated for about 4 days and she finally went this morning and had diarrhea, pt c/o lower back pain, RUQ pain, and head and neck pain, pulses normal, skin n/w/d, doesn't appear to be in anyd distress Physician History: Patient is a 26-year-old female brought to the ER by her father with a initial complaint of left lower back pain which is sharp in nature and went around to the front. It now seems to rotate and radiate into the right upper quadrant. She also complains of a headache rating it 8 of 10. She has had recent dental infections which is caused lymphadenopathy in the neck and pain. She feels that these are related to her carious infected teeth. Timing/Duration: week(s) (Several) Severity: moderate Modifying Factors: Improves With: eating, medication Associated Symptoms: abdominal pain, chills, headaches, loss of appetite, weakness Allergies/Adverse Reactions: adhesive tape Adverse Reaction (Mild, Verified 01/02/22 14:44) Rash Home Medications: Buspirone HCl 10 mg PO DAILY PRN 01/02/22 [History] Sertraline HCl 50 mg [Zoloft 50 mg Tablet] 50 mg PO DAILY 01/02/22 [History] Hx Tetanus, Diphtheria Vaccination/Date Given: Yes Hx Influenza Vaccination/Date Given: No Hx Pneumococcal Vaccination/Date Given: No Immunizations Up to Date: Yes Travel Risk - International Travel Have you traveled outside of the country in past 3 weeks: No - Coronavirus Screening Are you exhibiting any of the following symptoms?: Yes Symptoms: Vomiting/Diarrhea, Headaches/Body Aches/Fatigue Close contact with a COVID-19 positive Pt in past 14-21 Days: No - Vaccine Status Have you recieved a Covid-19 vaccination: No - Review of Systems Constitutional: Fever, Chills, Malaise Eyes: No Symptoms Ears, Nose, & Throat: No Symptoms Respiratory: No Cough, No Dyspnea Cardiac: No Chest Pain, No Edema, No Syncope Abdominal/Gastrointestinal: Abdominal Pain, Nausea, Vomiting, No Diarrhea Genitourinary Symptoms: No Dysuria Musculoskeletal: Back Pain, No Neck Pain Skin: No Rash Neurological: Headache, No Dizziness, No Focal Weakness, No Sensory Changes Psychological: No Symptoms Endocrine: No Symptoms All Other Systems: Reviewed and Negative - Past Medical History Pertinent Past Medical History: Yes Neurological History: Seizures, Other ENT History: No Pertinent History Cardiac History: No Pertinent History Respiratory History: No Pertinent History Endocrine Medical History: No Pertinent History Musculoskeletal History: No Pertinent History, Other GI Medical History: Colitis History: No Pertinent History Psycho-Social History: Anxiety, Depression Female Reproductive Disorders: No Pertinent History Other Medical History: HAS HISTORY OF HEADACHES HAS BEEN WORKED UP FOR STOMACH PROBLEMS, hx of syncope, Hx of seizures. Has nodule on left wrist. - Past Surgical History Past Surgical History: Yes Neuro Surgical History: No Pertinent History Cardiac: No Pertinent History Respiratory: No Pertinent History Gastrointestinal: Other Genitourinary: No Pertinent History Musculoskeletal: No Pertinent History Female Surgical History: Section Other Surgical History: endoscopy to check gastric samples. (Pt states I have a history of when I eat I get sick.) pt states unknown results. colonoscopy - Social History Smoking Status: Current every day smoker How long have you smoked: "awhile" Exposure to second hand smoke: Yes Drug Use: none Patient Lives Alone: No Significant Family History: no pertinent family hx - Female History Hx Now: No - Nursing Vital Signs Nursing Vital Signs: Initial Vital Signs Temperature 96.1 F 01/02/22 14:29 Pulse Rate 108 H 01/02/22 14:29 Blood Pressure 182/125 01/02/22 14:29 O2 Sat by Pulse Oximetry 98 01/02/22 14:29 Pain Scale Pain Intensity [Right Upper 6 Abdomen] Pain Intensity 5 - Physical Exam General Appearance: no apparent distress, alert Eye Exam: PERRL/EOMI, eyes nml inspection Ears, Nose, Throat Exam: normal ENT inspection, TMs normal, pharynx normal, moist mucous membranes, other (Carious infected teeth) Neck Exam: normal inspection, non-tender, supple, full range of motion, lymphadenopathy Respiratory Exam: normal breath sounds, lungs clear, No respiratory distress Cardiovascular Exam: regular rate/rhythm, normal heart sounds, normal peripheral pulses Gastrointestinal/Abdomen Exam: soft, normal bowel sounds, No tenderness, No mass Back Exam: normal inspection, normal range of motion, point tenderness (Tenderness over the left SI joint area), No CVA tenderness, No vertebral tenderness Extremity Exam: normal inspection, normal range of motion, pelvis stable Neurologic Exam: alert, oriented x 3, cooperative, normal mood/affect, nml cerebellar function, nml station & gait, sensation nml, No motor deficits Skin Exam: normal color, warm, dry, No rash Lymphatic Exam: No adenopathy SpO2 Interpretation: normal SpO2: 98 O2 Delivery: Room Air - Course Nursing assessment & vital signs reviewed: Yes - Radiology Exams L-Spine X-ray Interpretation: Negative Ordered Tests: Active Orders 24 hr Category Date Time Status IV Insertion STAT Care 01/02/22 14:40 Active LUMBAR LIMITED (2 OR 3 VIEWS) Stat Exams 01/02/22 14:42 Taken AMYLASE Stat Lab 01/02/22 14:55 Completed BLOOD CULTURE Stat Lab 01/02/22 14:55 Received CBC W DIFF Stat Lab 01/02/22 14:55 Completed CMP Stat Lab 01/02/22 14:55 Completed HCG,QUALITATIVE URINE Stat Lab 01/02/22 14:56 Completed LIPASE Stat Lab 01/02/22 14:55 Completed Lactic Acid Stat Lab 01/02/22 14:40 Completed UA W/RFX CULTURE Stat Lab 01/02/22 14:56 Completed Urine Triage Profile Stat Lab 01/02/22 14:56 Completed Medication Summary Discontinued Medications Generic Name Dose Route Start Last Admin Trade Name Freq PRN Reason Stop Dose Admin Sodium Chloride 1,000 mls @ 999 mls/hr 01/02/22 14:40 01/02/22 16:00 Sodium Chloride 0.9% 1000 Ml IV 01/02/22 15:40 Infused .Q1H1M STA Infusion Sodium Chloride Confirm 01/02/22 14:57 Sodium Chloride 0.9% 1000 Ml Administered 01/02/22 14:58 Dose 1,000 mls @ ud .ROUTE .STK-MED ONE Ketorolac Tromethamine 30 mg 01/02/22 14:40 01/02/22 14:59 Ketorolac Tromethamine 30 Mg/Ml Inj IV 01/02/22 14:41 30 mg STAT ONE Administration Ketorolac Tromethamine Confirm 01/02/22 14:57 Ketorolac Tromethamine 30 Mg/Ml Inj Administered 01/02/22 14:58 Dose 30 mg .ROUTE .STK-MED ONE Ondansetron HCl 4 mg 01/02/22 14:40 01/02/22 14:59 Ondansetron Hcl 4 Mg/2 Ml Vial IV 01/02/22 14:41 4 mg STAT ONE Administration Ondansetron HCl Confirm 01/02/22 14:57 Ondansetron Hcl 4 Mg/2 Ml Vial Administered 01/02/22 14:58 Dose 4 mg .ROUTE .STK-MED ONE Lab/Rad Data: Laboratory Result Diagrams 01/02/22 14:55 01/02/22 14:55 Laboratory Results 01/02/22 01/02/22 01/02/22 Range/Units 14:56 14:56 14:56 WBC (4.0-10.5) x10^3/uL RBC (4.1-5.4) x10^6/uL Hgb (12.0-16.0) g/dL Hct (35-47) % MCV (78-100) fL MCH (26-32) pg MCHC (32-36) g/dL RDW (11.5-14.0) % Plt Count (150-450) x10^3/uL MPV (7.5-11.0) fL Gran % (36.0-66.0) % Immature Gran % (Auto) (0.00-0.4) % Nucleat RBC Rel Count (0.00-0.1) % Eos # (Auto) (0-0.5) x10^3/uL Immature Gran # (Auto) (0.00-0.03) x10^3u/L Absolute Lymphs (auto) (1.0-4.6) x10^3/uL Absolute Monos (auto) (0.0-1.3) x10^3/uL Absolute Nucleated RBC (0.00-0.01) x10^3u/L Lymphocytes % (24.0-44.0) % Monocytes % (0.0-12.0) % Eosinophils % (0.00-5.0) % Basophils % (0.0-0.4) % Absolute Granulocytes (1.4-6.9) x10^3/uL Basophils # (0-0.4) x10^3/uL Sodium (137-145) mmol/L Potassium (3.5-5.1) mmol/L Chloride (98-107) mmol/L Carbon Dioxide (22-30) mmol/L Anion Gap (5-15) MEQ/L BUN (7-17) mg/dL Creatinine (0.52-1.04) mg/dL Estimated GFR ML/MIN Glucose (74-106) mg/dL Lactic Acid (0.4-2.0) Calcium (8.4-10.2) mg/dL Total Bilirubin (0.2-1.3) mg/dL AST (14-36) U/L ALT (0-35) U/L Alkaline Phosphatase (38-126) U/L Serum Total Protein (6.3-8.2) g/dL Albumin (3.5-5.0) g/dL Amylase (30-110) U/L Lipase (23-300) U/L Urinalys Dipstick Clnc MAIN LAB Urine Color YELLOW (YELLOW) Urine Appearance CLEAR (CLEAR) Urine pH 5.5 (5-6) Ur Specific [place] 1.025 (1.005-1.025) POC Urine Protein Conf NEGATIVE (Negative) Urine Ketones NEGATIVE (NEGATIVE) Urine Nitrite NEGATIVE (NEGATIVE) Urine Bilirubin SMALL (NEGATIVE) Urine Urobilinogen 0.2 (0-1) mg/dL Urine Leukocytes NEGATIVE (NEGATIVE) Urine WBC (Auto) 3-5 (0-5) /HPF Urine RBC (Auto) NONE (0-2) /HPF U Epithel Cells (Auto) RARE (FEW) /HPF Urine Bacteria (Auto) NONE (NEGATIVE) /HPF Urine RBC MODERATE (0-5) Shola/ul Urine Mucus (Auto) SLIGHT (NEGATIVE) /HPF Ur Culture Indicated? NO Urine Glucose NEGATIVE (NEGATIVE) mg/dL Urine HCG, Qual NEGATIVE (Negative) Urine Opiates Level NEGATIVE (NEGATIVE) Ur Methadone NEGATIVE (NEGATIVE) Urine Barbiturates NEGATIVE (NEGATIVE) Ur Phencyclidine (PCP) NEGATIVE (NEGATIVE) Urine Amphetamine NEGATIVE (NEGATIVE) U Benzodiazepine Level NEGATIVE (NEGATIVE) Urine Cocaine NEGATIVE (NEGATIVE) Urine Marijuana (THC) NEGATIVE (NEGATIVE) 01/02/22 01/02/22 01/02/22 Range/Units 14:55 14:55 14:40 WBC 8.8 (4.0-10.5) x10^3/uL RBC 5.40 (4.1-5.4) x10^6/uL Hgb 14.4 (12.0-16.0) g/dL Hct 44.6 (35-47) % MCV 82.6 (78-100) fL MCH 26.7 (26-32) pg MCHC 32.3 (32-36) g/dL RDW 13.2 (11.5-14.0) % Plt Count 377 (150-450) x10^3/uL MPV 10.4 (7.5-11.0) fL Gran % 73.0 H (36.0-66.0) % Immature Gran % (Auto) 0.3 (0.00-0.4) % Nucleat RBC Rel Count 0.0 (0.00-0.1) % Eos # (Auto) 0.19 (0-0.5) x10^3/uL Immature Gran # (Auto) 0.03 (0.00-0.03) x10^3u/L Absolute Lymphs (auto) 1.46 (1.0-4.6) x10^3/uL Absolute Monos (auto) 0.67 (0.0-1.3) x10^3/uL Absolute Nucleated RBC 0.00 (0.00-0.01) x10^3u/L Lymphocytes % 16.6 L (24.0-44.0) % Monocytes % 7.6 (0.0-12.0) % Eosinophils % 2.2 (0.00-5.0) % Basophils % 0.3 (0.0-0.4) % Absolute Granulocytes 6.41 (1.4-6.9) x10^3/uL Basophils # 0.03 (0-0.4) x10^3/uL Sodium 138 (137-145) mmol/L Potassium 3.5 (3.5-5.1) mmol/L Chloride 103 (98-107) mmol/L Carbon Dioxide 24 (22-30) mmol/L Anion Gap 14.7 (5-15) MEQ/L BUN 10 (7-17) mg/dL Creatinine 0.76 (0.52-1.04) mg/dL Estimated GFR > 60.0 ML/MIN Glucose 97 (74-106) mg/dL Lactic Acid 0.8 (0.4-2.0) Calcium 9.0 (8.4-10.2) mg/dL Total Bilirubin 0.40 (0.2-1.3) mg/dL AST 31 (14-36) U/L ALT 45 H (0-35) U/L Alkaline Phosphatase 95 (38-126) U/L Serum Total Protein 8.0 (6.3-8.2) g/dL Albumin 4.6 (3.5-5.0) g/dL Amylase 52 (30-110) U/L Lipase 35 (23-300) U/L Urinalys Dipstick Clnc Urine Color (YELLOW) Urine Appearance (CLEAR) Urine pH (5-6) Ur Specific [place] (1.005-1.025) POC Urine Protein Conf (Negative) Urine Ketones (NEGATIVE) Urine Nitrite (NEGATIVE) Urine Bilirubin (NEGATIVE) Urine Urobilinogen (0-1) mg/dL Urine Leukocytes (NEGATIVE) Urine WBC (Auto) (0-5) /HPF Urine RBC (Auto) (0-2) /HPF U Epithel Cells (Auto) (FEW) /HPF Urine Bacteria (Auto) (NEGATIVE) /HPF Urine RBC (0-5) Shola/ul Urine Mucus (Auto) (NEGATIVE) /HPF Ur Culture Indicated? Urine Glucose (NEGATIVE) mg/dL Urine HCG, Qual (Negative) Urine Opiates Level (NEGATIVE) Ur Methadone (NEGATIVE) Urine Barbiturates (NEGATIVE) Ur Phencyclidine (PCP) (NEGATIVE) Urine Amphetamine (NEGATIVE) U Benzodiazepine Level (NEGATIVE) Urine Cocaine (NEGATIVE) Urine Marijuana (THC) (NEGATIVE) - Progress Progress: improved - Departure Departure Disposition: Home Clinical Impression: Low back pain, Dental infection, Headache Condition: Stable Critical Care Time: No Instructions: Low Back Pain (DC), Sciatica (DC) Prescriptions: clindamycin HCL [Cleocin HCl] 300 mg PO TID 7 Days #21 cap Diclofenac Sodium 50 mg [Voltaren 50 mg] 50 mg PO TID 5 Days #15 tablet
[2022-01-02 15:16] LABS: ALBUMIN 4.6 g/dL (3.5-5.0); ALKALINE PHOSPHATASE 95 U/L (38-126); AMYLASE 52 U/L (30-110); ANION GAP 14.7 MEQ/L (5-15); BLOOD UREA NITROGEN 10 mg/dL (7-17); CHLORIDE 103 mmol/L (98-107); Carbon Dioxide 24 mmol/L (22-30); Creatinine 1 0.76 mg/dL (0.52-1.04); EST GLOMERULAR FILTRATION RATE > 60.0 ML/MIN; Glucose 97 mg/dL (74-106); LIPASE 35 U/L (23-300); Potassium 3.5 mmol/L (3.5-5.1); SGOT/AST 31 U/L (14-36); SGPT/ALT 45 U/L (0-35); SODIUM 138 mmol/L (137-145)
[2022-01-02 15:17] LABS: Epithelial Cells RARE /HPF (FEW); Mucus SLIGHT /HPF (NEGATIVE)
[2022-01-02 15:24] LABS: Appearance CLEAR (CLEAR); Bilirubin SMALL (NEGATIVE); Dipstick done @ ? MAIN LAB; Glucose NEGATIVE (NEGATIVE); Ketones NEGATIVE (NEGATIVE); Nitrite NEGATIVE (NEGATIVE); Ph 5.5 (5-6); Protein,Urine Dip NEGATIVE (Negative); RBC MODERATE Ery/ul (0-5); Specific Gravity 1.025 (1.005-1.025); Urobilinogen 0.2 mg/dL (0-1)
[2022-01-02 15:28] LABS: Urine Cultured Indicated? NO
[2022-01-02 15:34] LABS: Amphetamine,Urine NEGATIVE (NEGATIVE); Barbiturate,Urine NEGATIVE (NEGATIVE); Benzodiazepine,Urine NEGATIVE (NEGATIVE); Cocaine,Urine NEGATIVE (NEGATIVE); Methadone,Urine NEGATIVE (NEGATIVE); Opiate,Urine NEGATIVE (NEGATIVE); PCP,Urine NEGATIVE (NEGATIVE); THC,Urine NEGATIVE (NEGATIVE)
[2022-01-02 16:06] VITALS: BP 142/91; PULSE 88
[2022-01-02 16:18] VITALS: O2SAT 98
--- NOTE | 2022-01-02 16:26 | XRAY ---
Indication: Low back pain 4 days. Comparison: October 10, 2021 3 view lumbar spine unchanged again demonstrating normal alignment with vertebral body heights/disc spaces maintained and incidental L4 limbus vertebrae. No new/acute findings.
== END 2022-01-02 16:30 | disposition home or self-care (01) ==
LOC: ED 14:19
DX: M54.50 Low back pain, unspecified (principal); K04.7 Periapical abscess without sinus; R51.9 Headache, unspecified; R10.9 Unspecified abdominal pain; Z72.0 Tobacco use; Z79.899 Other long term (current) drug therapy
CPT/HCPCS: 36000; 36415; 72100; 80053; 80307; 81015; 81025; 82150; 83605; 83690; 85025; 87040; 96374; 96375; 99284; J1885; J2405

== ENCOUNTER 2022-08-12 11:04 | Emergency (ER) | payer OTHER ==
[2022-08-12 11:43] LABS: Absolute Neutrophil Ct (ANC) 8.78 x10^3/uL (1.4-6.9); BASOPHIL % 0.6 % (0.0-0.4); Basophil (Absolute #) 0.07 x10^3/uL (0-0.4); Eosinophil % 1.3 % (0.00-5.0); Eosinophil (Absolute #) 0.17 x10^3/uL (0-0.5); Hematocrit 41.8 % (35-47); Hemoglobin 13.6 g/dL (12.0-16.0); IMMATURE GRAN # 0.05 x10^3u/L (0.00-0.03); IMMATURE GRAN % 0.4 % (0.00-0.4); Lymphocyte (Absolute #) 2.89 x10^3/uL (1.0-4.6); Lymphocytes % 22.9 % (24.0-44.0); Mean Cell Volume 83.1 fL (78-100); Mean Corpuscular Hgb Concent. 32.5 g/dL (32-36); Mean Platelet Volume 10.8 fL (7.5-11.0); Monocyte (Absolute #) 0.64 x10^3/uL (0.0-1.3); Monocytes % 5.1 % (0.0-12.0); Neutrophil % 69.7 % (36.0-66.0); Platelet Count 429 x10^3/uL (150-450); Red Blood Count 5.03 x10^6/uL (4.1-5.4); White Blood Count 12.6 x10^3/uL (4.0-10.5)
--- NOTE | 2022-08-12 11:43 | ERPHSYRPT ---
- History of Present Illness Time Seen by Provider: 08/12/22 11:33 Historian: patient Exam Limitations: no limitations Patient Subjective Stated Complaint: pt here for " sulfer burps and gas " since yesterday, with vomiting yeaterday, able to eat today, has bm yesterday, now co pain to middle right side of back. Triage Nursing Assessment: pt alert, walked in, resp easy, skin w/d/p. no edema, abd soft Physician History: Pain was in RUQ abdomen, now seems more in right flank area, no vomiting, fever, etc. No cough or CP. Still has her GB. Timing/Duration: yesterday Activities at Onset: none Quality: cramping, dullness Abdominal Pain Onset Location: RUQ Pain Radiation: flank Severity of Pain-Max: moderate Severity of Pain-Current: mild Modifying Factors: Improves With: nothing Associated Symptoms: denies symptoms, No shortness of breath, No vomiting Previous symptoms: same symptoms as today Allergies/Adverse Reactions: adhesive tape Adverse Reaction (Mild, Verified 08/12/22 11:13) Rash Hx Tetanus, Diphtheria Vaccination/Date Given: Yes Hx Influenza Vaccination/Date Given: No Hx Pneumococcal Vaccination/Date Given: No Immunizations Up to Date: Yes Travel Risk - International Travel Have you traveled outside of the country in past 3 weeks: No - Coronavirus Screening Are you exhibiting any of the following symptoms?: No Close contact with a COVID-19 positive Pt in past 14-21 Days: No - Vaccine Status Have you recieved a Covid-19 vaccination: No - Review of Systems Constitutional: No Symptoms Eyes: No Symptoms Ears, Nose, & Throat: No Symptoms Respiratory: No Symptoms Cardiac: No Symptoms Abdominal/Gastrointestinal: Abdominal Pain Genitourinary Symptoms: No Symptoms Musculoskeletal: No Symptoms, Back Pain Skin: No Symptoms Neurological: No Symptoms Psychological: No Symptoms Endocrine: No Symptoms Hematologic/Lymphatic: No Symptoms Immunological/Allergic: No Symptoms All Other Systems: Reviewed and Negative - Past Medical History Pertinent Past Medical History: Yes Neurological History: Seizures, Other ENT History: No Pertinent History Cardiac History: No Pertinent History Respiratory History: No Pertinent History Endocrine Medical History: No Pertinent History Musculoskeletal History: No Pertinent History, Other GI Medical History: Colitis History: No Pertinent History Psycho-Social History: Anxiety, Depression Female Reproductive Disorders: No Pertinent History Other Medical History: HAS HISTORY OF HEADACHES HAS BEEN WORKED UP FOR STOMACH PROBLEMS, hx of syncope, Hx of seizures. Has nodule on left wrist. - Past Surgical History Past Surgical History: Yes Neuro Surgical History: No Pertinent History Cardiac: No Pertinent History Respiratory: No Pertinent History Gastrointestinal: Other Genitourinary: No Pertinent History Musculoskeletal: No Pertinent History Female Surgical History: Section Other Surgical History: endoscopy to check gastric samples. (Pt states I have a history of when I eat I get sick.) pt states unknown results. colonoscopy - Social History Smoking Status: Current every day smoker How long have you smoked: "awhile" Exposure to second hand smoke: Yes Drug Use: none Patient Lives Alone: No Significant Family History: no pertinent family hx - Female History Hx Last Menstrual Period: 2020 Hx Now: No - Nursing Vital Signs Nursing Vital Signs: Initial Vital Signs Temperature 97.6 F 08/12/22 11:17 Pulse Rate 105 H 08/12/22 11:17 Respiratory Rate 18 08/12/22 11:17 Blood Pressure 139/115 08/12/22 11:17 O2 Sat by Pulse Oximetry 100 08/12/22 11:17 Pain Scale Pain Intensity 4 - Physical Exam General Appearance: no apparent distress Eye Exam: PERRL/EOMI Ears, Nose, Throat Exam: normal ENT inspection Neck Exam: normal inspection, non-tender Respiratory Exam: normal breath sounds, lungs clear Cardiovascular Exam: regular rate/rhythm, normal heart sounds Gastrointestinal/Abdomen Exam: soft, normal bowel sounds Pelvic Exam: not done Rectal Exam: not done Back Exam: normal inspection, CVA tenderness (right side) Extremity Exam: normal inspection, normal range of motion Neurologic Exam: alert, oriented x 3, cooperative Skin Exam: normal color, warm, dry SpO2 Interpretation: normal SpO2: 100 O2 Delivery: Room Air - Course Nursing assessment & vital signs reviewed: Yes - CT Exams Abdomen/Pelvis CT Interpretation: Tele-radiologist Report, Other (overall neg) Ordered Tests: Active Orders 24 hr Category Date Time Status ABDOMEN AND PELVIS W/0 CONTRAS [CT] Stat Exams 08/12/22 12:30 Completed CBC W DIFF Stat Lab 08/12/22 11:42 Completed CMP Stat Lab 08/12/22 11:42 Completed CULTURE,URINE Stat Lab 08/12/22 11:39 Received HCG QUALITATIVE, URINE Stat Lab 08/12/22 11:39 Completed UA W/RFX UR CULTURE Stat Lab 08/12/22 11:39 Completed Medication Summary Discontinued Medications Generic Name Dose Route Start Last Admin Trade Name Sosa PRN Reason Stop Dose Admin Ketorolac Tromethamine 30 mg 08/12/22 12:32 08/12/22 12:38 Ketorolac Tromethamine 30 Mg/Ml Inj IV 08/12/22 12:33 30 mg STAT ONE Administration Ketorolac Tromethamine Confirm 08/12/22 12:36 Ketorolac Tromethamine 30 Mg/Ml Inj Administered 08/12/22 12:37 Dose 30 mg .ROUTE .STK-MED ONE Lab/Rad Data: Laboratory Result Diagrams 08/12/22 11:42 08/12/22 11:42 Laboratory Results 08/12/22 08/12/22 08/12/22 Range/Units 11:42 11:42 11:39 WBC 12.6 H (4.0-10.5) x10^3/uL RBC 5.03 (4.1-5.4) x10^6/uL Hgb 13.6 (12.0-16.0) g/dL Hct 41.8 (35-47) % MCV 83.1 (78-100) fL MCH 27.0 (26-32) pg MCHC 32.5 (32-36) g/dL RDW 13.0 (11.5-14.0) % Plt Count 429 (150-450) x10^3/uL MPV 10.8 (7.5-11.0) fL Gran % 69.7 H (36.0-66.0) % Immature Gran % (Auto) 0.4 (0.00-0.4) % Nucleat RBC Rel Count 0.0 (0.00-0.1) % Eos # (Auto) 0.17 (0-0.5) x10^3/uL Immature Gran # (Auto) 0.05 H (0.00-0.03) x10^3u/L Absolute Lymphs (auto) 2.89 (1.0-4.6) x10^3/uL Absolute Monos (auto) 0.64 (0.0-1.3) x10^3/uL Absolute Nucleated RBC 0.00 (0.00-0.01) x10^3u/L Lymphocytes % 22.9 L (24.0-44.0) % Monocytes % 5.1 (0.0-12.0) % Eosinophils % 1.3 (0.00-5.0) % Basophils % 0.6 (0.0-0.4) % Absolute Granulocytes 8.78 H (1.4-6.9) x10^3/uL Basophils # 0.07 (0-0.4) x10^3/uL Sodium 140 (137-145) mmol/L Potassium 3.7 (3.5-5.1) mmol/L Chloride 105 (98-107) mmol/L Carbon Dioxide 26 (22-30) mmol/L Anion Gap 12.9 (5-15) MEQ/L BUN 7 (7-17) mg/dL Creatinine 0.69 (0.52-1.04) mg/dL Estimated GFR > 60.0 ML/MIN Glucose 98 (74-106) mg/dL Calcium 8.8 (8.4-10.2) mg/dL Total Bilirubin 0.30 (0.2-1.3) mg/dL AST 40 H (14-36) U/L ALT 53 H (0-35) U/L Alkaline Phosphatase 86 (38-126) U/L Serum Total Protein 7.5 (6.3-8.2) g/dL Albumin 4.1 (3.5-5.0) g/dL Urine Color (Yellow) Urine Appearance (Clear) Urine pH (4.6-8.0) Ur Specific [place] (1.005-1.030) Urine Protein (Negative) Urine Glucose (UA) (Negative) mg/dL Urine Ketones (Negative) Urine Blood (Negative) Urine Nitrite (Negative) Urine Bilirubin (Negative) Urine Urobilinogen (0.2) mg/dL Ur Leukocyte Esterase (Negative) U Hyaline Cast (Auto) (0-2) /LPF Urine Microscopic RBC (0-5) /HPF Urine Microscopic WBC (0-5) /HPF Ur Epithelial Cells (None Seen) /HPF Urine Bacteria (None Seen) /HPF Urine Culture Reflexed (NO) Urine HCG, Qual NEGATIVE (NEGATIVE) 08/12/22 Range/Units 11:39 WBC (4.0-10.5) x10^3/uL RBC (4.1-5.4) x10^6/uL Hgb (12.0-16.0) g/dL Hct (35-47) % MCV (78-100) fL MCH (26-32) pg MCHC (32-36) g/dL RDW (11.5-14.0) % Plt Count (150-450) x10^3/uL MPV (7.5-11.0) fL Gran % (36.0-66.0) % Immature Gran % (Auto) (0.00-0.4) % Nucleat RBC Rel Count (0.00-0.1) % Eos # (Auto) (0-0.5) x10^3/uL Immature Gran # (Auto) (0.00-0.03) x10^3u/L Absolute Lymphs (auto) (1.0-4.6) x10^3/uL Absolute Monos (auto) (0.0-1.3) x10^3/uL Absolute Nucleated RBC (0.00-0.01) x10^3u/L Lymphocytes % (24.0-44.0) % Monocytes % (0.0-12.0) % Eosinophils % (0.00-5.0) % Basophils % (0.0-0.4) % Absolute Granulocytes (1.4-6.9) x10^3/uL Basophils # (0-0.4) x10^3/uL Sodium (137-145) mmol/L Potassium (3.5-5.1) mmol/L Chloride (98-107) mmol/L Carbon Dioxide (22-30) mmol/L Anion Gap (5-15) MEQ/L BUN (7-17) mg/dL Creatinine (0.52-1.04) mg/dL Estimated GFR ML/MIN Glucose (74-106) mg/dL Calcium (8.4-10.2) mg/dL Total Bilirubin (0.2-1.3) mg/dL AST (14-36) U/L ALT (0-35) U/L Alkaline Phosphatase (38-126) U/L Serum Total Protein (6.3-8.2) g/dL Albumin (3.5-5.0) g/dL Urine Color Yellow (Yellow) Urine Appearance Cloudy A (Clear) Urine pH 5.5 (4.6-8.0) Ur Specific [place] 1.025 (1.005-1.030) Urine Protein Negative (Negative) Urine Glucose (UA) Negative (Negative) mg/dL Urine Ketones Negative (Negative) Urine Blood Negative (Negative) Urine Nitrite Negative (Negative) Urine Bilirubin Negative (Negative) Urine Urobilinogen 0.2 (0.2) mg/dL Ur Leukocyte Esterase Trace A (Negative) U Hyaline Cast (Auto) NONE SEEN (0-2) /LPF Urine Microscopic RBC 21-50 A (0-5) /HPF Urine Microscopic WBC 3-5 (0-5) /HPF Ur Epithelial Cells Few (None Seen) /HPF Urine Bacteria None Seen (None Seen) /HPF Urine Culture Reflexed YES (NO) Urine HCG, Qual (NEGATIVE) - Progress Progress: improved Progress Note: 08/12/22 14:46 She feels better with toradol. Seems to be biliary colic or musculoskeletal pain, Rec. NSAID and muscle relaxer, see PCP. Medical Desision Making - Diagnostic Testing Diagnostic test were ordered, analyzed, and reviewed by me: Yes Radiological Interpretation: Teleradiologist Report - Risk of complications Low Risk: Low risk of morbidity from additional dx testing or treatment The pt has a mod risk of morbidity or mortality based on: Need for prescription drug management - Departure Departure Disposition: Home Clinical Impression: Back pain Qualifiers: Back pain location: low back pain Chronicity: acute Back pain laterality: right Sciatica presence: without sciatica Qualified Code(s): M54.50 - Low back pain, unspecified Abdominal pain Qualifiers: Abdominal location: right upper quadrant Qualified Code(s): R10.11 - Right upper quadrant pain Condition: Stable Critical Care Time: No Referrals: GUCCI MOMIN NP [Primary Care Provider] - Follow Up with PCP/3 days Instructions: Low Back Pain (DC) Additional Instructions: Take ibuprofen as helpful, and muscle relaxer as helpful. Recheck with your PCP, you might need further gallbladder testing. Forms: Work/School Release Form Prescriptions: Methocarbamol [Robaxin] 500 mg PO Q6H PRN PRN #20 tablet PRN Reason: Muscle Spasms
[2022-08-12 11:46] LABS: HCG URINE TEST NEGATIVE (NEGATIVE)
[2022-08-12 11:53] LABS: Appearance Cloudy (Clear); Bacteria None Seen /HPF (None Seen); Bilirubin Negative (Negative); Blood Negative (Negative); Epithelial Cells Few /HPF (None Seen); Glucose, Urine Negative (Negative); Hyaline Casts NONE SEEN /LPF (0-2); Ketones Negative (Negative); Leukocyte Esterase Trace (Negative); Nitrite Negative (Negative); Ph 5.5 (4.6-8.0); Protein,Urine Dip Negative (Negative); RBC 21-50 /HPF (0-5); Specific Gravity 1.025 (1.005-1.030); Urobilinogen 0.2 mg/dL (0.2)
[2022-08-12 11:54] LABS: ADD URINE CULTURE? YES (NO)
[2022-08-12 11:59] LABS: ALBUMIN 4.1 g/dL (3.5-5.0); ALKALINE PHOSPHATASE 86 U/L (38-126); ANION GAP 12.9 MEQ/L (5-15); BLOOD UREA NITROGEN 7 mg/dL (7-17); CHLORIDE 105 mmol/L (98-107); Calcium 8.8 mg/dL (8.4-10.2); Carbon Dioxide 26 mmol/L (22-30); Creatinine 1 0.69 mg/dL (0.52-1.04); EST GLOMERULAR FILTRATION RATE > 60.0 ML/MIN; Glucose 98 mg/dL (74-106); Potassium 3.7 mmol/L (3.5-5.1); SGOT/AST 40 U/L (14-36); SGPT/ALT 53 U/L (0-35); SODIUM 140 mmol/L (137-145); Total Protein 7.5 g/dL (6.3-8.2)
[2022-08-12] MEDS ORDERED: TORAdol 30 mg Injection IV ONE (12:32)
[2022-08-12] MEDS ORDERED: TORAdol 30 mg Injection ONE (12:36)
[2022-08-12 13:03] VITALS: PULSE 79
--- NOTE | 2022-08-12 14:03 | XRAY ---
CLINICAL HISTORY:Right renal colic. COMPARISON:None; TECHNIQUES:Multiplanar non-contrast CT scan of abdomen and pelvis performed. CTDI 21.76, DLP 1195.79 mGy. FINDINGS: Both kidneys are normal in size and outline. No stone, cyst or hydronephrosis seen bilaterally. Both ureters are normal in calibre with no intraluminal stones. The urinary bladder is optimally distended with no intravesical stone. No perivesical stranding seen. The appendix is separately visualized and appears unremarkable. The liver, gall bladder, spleen, pancreas, both adrenal glands and bowel loops appear unremarkable within the limitations of unenhanced examination. No abdominopelvic wall hernias, internal collections, free fluid, enlarged lymph nodes or pneumoperitoneum seen. Grossly unremarkable osseous structures. Lower chest. lung bases clear, no pleural effusion, no pericardial effusion. IMPRESSION: 1. Unremarkable non-contrast CT study. 2. No stones in both kidneys, both ureters and urinary bladder. Electronically Signed by: Alina Putnam MD. (08/12/2022 12:59:33 RADIOLOGY RECEPTIONIST)
[2022-08-12 14:51] VITALS: BP 166/101; O2SAT 100
== END 2022-08-12 15:00 | disposition home or self-care (01) ==
LOC: ED 11:04
DX: M54.50 Low back pain, unspecified (principal); R10.11 Right upper quadrant pain; Z28.310 Unvaccinated for COVID-19; Z72.0 Tobacco use
CPT/HCPCS: 36000; 36415; 74176; 80053; 81001; 81025; 85025; 87086; 96374; 99284; J1885

== ENCOUNTER 2022-10-30 19:23 | Emergency (ER) | payer OTHER ==
[2022-10-30] MEDS ORDERED: SILVADENE 50 GM TP ONE ×2 (20:00→20:02)
[2022-10-30 20:33] VITALS: BP 123/82; PULSE 95; O2SAT 98
[2022-10-30] MEDS ORDERED: TORAdol 30 mg Injection IM ONE (20:34)
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
[2022-10-30] MEDS ORDERED: TORAdol 30 mg Injection ONE (20:35)
== END 2022-10-30 20:45 | disposition home or self-care (01) ==
LOC: ED 19:23
DX: T22.112A Burn of first degree of left forearm, initial encounter (principal); X15.0XXA Contact with hot stove (kitchen), initial encounter; Y99.0 Civilian activity done for income or pay; Z28.310 Unvaccinated for COVID-19; Z72.0 Tobacco use
CPT/HCPCS: 96372; 99283; J1885; A9270-GY

== ENCOUNTER 2022-12-10 20:37 | Observation (INO) | payer OTHER ==
[2022-12-10] MEDS ORDERED: TRANDATE 20 MG/4 ML SYRINGE IV ONE ×2 (21:23→21:24)
[2022-12-10 21:24] LABS: Absolute Neutrophil Ct (ANC) 8.69 x10^3/uL (1.4-6.9); BASOPHIL % 0.8 % (0.0-0.4); Basophil (Absolute #) 0.12 x10^3/uL (0-0.4); Eosinophil % 1.4 % (0.00-5.0); Eosinophil (Absolute #) 0.21 x10^3/uL (0-0.5); Hematocrit 43.5 % (35-47); Hemoglobin 14.1 g/dL (12.0-16.0); IMMATURE GRAN # 0.06 x10^3u/L (0.00-0.03); IMMATURE GRAN % 0.4 % (0.00-0.4); Lymphocyte (Absolute #) 4.44 x10^3/uL (1.0-4.6); Lymphocytes % 30.6 % (24.0-44.0); Mean Cell Volume 84.1 fL (78-100); Mean Corpuscular Hemoglobin 27.3 pg (26-32); Mean Corpuscular Hgb Concent. 32.4 g/dL (32-36); Mean Platelet Volume 11.4 fL (7.5-11.0); Monocyte (Absolute #) 0.97 x10^3/uL (0.0-1.3); Monocytes % 6.7 % (0.0-12.0); Neutrophil % 60.1 % (36.0-66.0); Platelet Count 429 x10^3/uL (150-450); Red Blood Count 5.17 x10^6/uL (4.1-5.4); Red Cell Distribution Width 12.6 % (11.5-14.0); White Blood Count 14.5 x10^3/uL (4.0-10.5)
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
[2022-12-10 21:39] LABS: HCG SERUM TEST NEGATIVE (NEGATIVE)
[2022-12-10 21:40] LABS: ACETAMINOPHEN 10 ug/ml (10-30); ALBUMIN 4.6 g/dL (3.5-5.0); ALKALINE PHOSPHATASE 82 U/L (38-126); ANION GAP 15.2 MEQ/L (5-15); BLOOD UREA NITROGEN 9 mg/dL (7-17); CHLORIDE 105 mmol/L (98-107); Calcium 9.5 mg/dL (8.4-10.2); Carbon Dioxide 25 mmol/L (22-30); Creatinine 1 0.71 mg/dL (0.52-1.04); EST GLOMERULAR FILTRATION RATE > 60.0 ML/MIN; ETHYL ALCOHOL < 10 mg/dL (0-10); Glucose 100 mg/dL (74-106); Potassium 3.5 mmol/L (3.5-5.1); SALICYLATE < 1.0 mg/dL (2-20); SGOT/AST 27 U/L (14-36); SGPT/ALT 25 U/L (0-35); SODIUM 142 mmol/L (137-145); Total Protein 7.6 g/dL (6.3-8.2)
[2022-12-10 21:44] LABS: Appearance Clear (Clear); Bacteria Rare /HPF (None Seen); Bilirubin Negative (Negative); Blood Negative (Negative); Epithelial Cells Rare /HPF (None Seen); Glucose, Urine Negative (Negative); Ketones 15 (Negative); Leukocyte Esterase Negative (Negative); Nitrite Negative (Negative); Protein,Urine Dip Trace (Negative); Specific Gravity 1.025 (1.005-1.030); Urobilinogen 0.2 mg/dL (0.2)
[2022-12-10 21:53] LABS: Amphetamine,Urine NEGATIVE (NEGATIVE); Barbiturate,Urine NEGATIVE (NEGATIVE); Benzodiazepine,Urine NEGATIVE (NEGATIVE); Cocaine,Urine NEGATIVE (NEGATIVE); Methadone,Urine NEGATIVE (NEGATIVE); Opiate,Urine NEGATIVE (NEGATIVE); PCP,Urine NEGATIVE (NEGATIVE); THC,Urine POSITIVE (NEGATIVE)
[2022-12-10 22:17] LABS: ADD URINE CULTURE? NO (NO)
--- NOTE | 2022-12-11 04:03 | PCM.HP ---
History of Present Illness - Chief Complaint Chief Complaint: Tylenol overdose Date: 12/11/22 History of Present Illness: This is a 27-year-old female admitted for suicide attempt. She has past medical history of depression and self-harm. She reported she took a handful of tablets from a jar that had both Advil and Tylenol and it. She estimates approximately 20 to 30 pills. Immediately after taking them she drove herself to the ED. On arrival she was tachycardic 115 hypertensive 221/166 after discussion with poison control and to acetaminophen levels which resulted at 10 and 62 NAC was not indicated. Other labs significant for WBC 14 creatinine 0.7 trace protein 15 ketones were bacteria. In the ED she received a dose of labetalol for hypertension. Currently she has no complaints and states she feels much better after eating. - Review of Systems Eyes: No Symptoms Ears, Nose, & Throat: No Symptoms Respiratory: No Symptoms Cardiac: No Symptoms Abdominal/Gastrointestinal: No Symptoms Genitourinary Symptoms: No Symptoms Musculoskeletal: No Symptoms Skin: No Symptoms Neurological: No Symptoms Psychological: Depression, Suicidal Ideations Endocrine: No Symptoms Hematologic/Lymphatic: No Symptoms Medications & Allergies Home Medications: Home Medication List No Reportable Medications [No Reported Medications] 10/30/22 [History Confirmed 12/10/22] Allergies/Adverse Reactions: Allergies Allergy/AdvReac Type Severity Reaction Status Date / Time adhesive tape AdvReac Mild Rash Verified 12/10/22 20:44 - Past Medical History Past Medical History: Yes Neurological History: Seizures, Other ENT History: No Pertinent History Cardiac History: No Pertinent History Respiratory History: No Pertinent History Endocrine Medical History: No Pertinent History Musculoskelatal History: No Pertinent History, Other GI Medical History: Colitis History: No Pertinent History Pyscho-Social History: Anxiety, Depression Reproductive Disorders: No Pertinent History Comment: HAS HISTORY OF HEADACHES HAS BEEN WORKED UP FOR STOMACH PROBLEMS, hx of syncope, Hx of seizures. Has nodule on left wrist. - Female History Hx Last Menstrual Period: 2 yrs, depo shot Are you now?: No - Past Surgical History Past Surgical History: Yes Neuro Surgical History: No Pertinent History Cardiac History: No Pertinent History Respiratory Surgery: No Pertinent History GI Surgical History: Other Genitourinary Surgical Hx: No Pertinent History Musculskeletal Surgical Hx: No Pertinent History Female Surgical History: Section Other Surgical History: endoscopy to check gastric samples. (Pt states I have a history of when I eat I get sick.) pt states unknown results. colonoscopy - Social History Smoking Status: Current every day smoker How long have you smoked: 2009 Exposure to second hand smoke: No Alcohol: None Drug Use: other Significant Family History: no pertinent family hx - Physical Exam Vital Signs: Vital Signs - 24 hr Temp Pulse Resp BP BP BP Pulse Ox 12/11/22 02:30 65 18 128/95 98 12/11/22 02:00 68 20 161/83 100 12/11/22 01:35 99 12/11/22 01:30 66 18 152/81 100 12/11/22 01:24 94 L 12/11/22 01:00 70 16 141/88 98 12/11/22 00:30 59 L 18 134/85 98 12/11/22 00:00 72 17 132/67 97 12/10/22 23:30 71 16 152/90 98 12/10/22 23:00 85 17 144/83 99 12/10/22 22:30 85 18 156/95 99 12/10/22 22:00 78 16 161/85 99 12/10/22 21:30 80 18 176/87 99 12/10/22 21:22 88 16 175/125 194/120 98 12/10/22 21:00 109 H 20 231/141 99 12/10/22 20:47 97.5 F 115 H 16 221/166 100 General Appearance: no apparent distress Neurologic Exam: alert, oriented x 3 Eye Exam: PERRL/EOMI Ears, Nose, Throat Exam: normal ENT inspection Neck Exam: full range of motion Respiratory Exam: normal breath sounds Cardiovascular Exam: regular rate/rhythm Gastrointestinal/Abdomen Exam: soft Extremity Exam: normal inspection Skin Exam: normal color Results - Labs Lab/Micro Results: Lab Results-Last 24 Hours 12/10/22 12/10/22 12/10/22 Range/Units 21:00 21:00 21:05 WBC 14.5 H (4.0-10.5) x10^3/uL RBC 5.17 (4.1-5.4) x10^6/uL Hgb 14.1 (12.0-16.0) g/dL Hct 43.5 (35-47) % MCV 84.1 (78-100) fL MCH 27.3 (26-32) pg MCHC 32.4 (32-36) g/dL RDW 12.6 (11.5-14.0) % Plt Count 429 (150-450) x10^3/uL MPV 11.4 H (7.5-11.0) fL Gran % 60.1 (36.0-66.0) % Immature Gran % (Auto) 0.4 (0.00-0.4) % Nucleat RBC Rel Count 0.0 (0.00-0.1) % Eos # (Auto) 0.21 (0-0.5) x10^3/uL Immature Gran # (Auto) 0.06 H (0.00-0.03) x10^3u/L Absolute Lymphs (auto) 4.44 (1.0-4.6) x10^3/uL Absolute Monos (auto) 0.97 (0.0-1.3) x10^3/uL Absolute Nucleated RBC 0.00 (0.00-0.01) x10^3u/L Lymphocytes % 30.6 (24.0-44.0) % Monocytes % 6.7 (0.0-12.0) % Eosinophils % 1.4 (0.00-5.0) % Basophils % 0.8 (0.0-0.4) % Absolute Granulocytes 8.69 H (1.4-6.9) x10^3/uL Basophils # 0.12 (0-0.4) x10^3/uL Sodium (137-145) mmol/L Potassium (3.5-5.1) mmol/L Chloride (98-107) mmol/L Carbon Dioxide (22-30) mmol/L Anion Gap (5-15) MEQ/L BUN (7-17) mg/dL Creatinine (0.52-1.04) mg/dL Estimated GFR ML/MIN Glucose (74-106) mg/dL Calcium (8.4-10.2) mg/dL Total Bilirubin (0.2-1.3) mg/dL AST (14-36) U/L ALT (0-35) U/L Alkaline Phosphatase (38-126) U/L Serum Total Protein (6.3-8.2) g/dL Albumin (3.5-5.0) g/dL Serum HCG, Qual (NEGATIVE) Urine Color Yellow (Yellow) Urine Appearance Clear (Clear) Urine pH 7.0 (4.6-8.0) Ur Specific [place] 1.025 (1.005-1.030) Urine Protein Trace A (Negative) Urine Glucose (UA) Negative (Negative) mg/dL Urine Ketones 15 A (Negative) Urine Blood Negative (Negative) Urine Nitrite Negative (Negative) Urine Bilirubin Negative (Negative) Urine Urobilinogen 0.2 (0.2) mg/dL Ur Leukocyte Esterase Negative (Negative) U Hyaline Cast (Auto) 3-5 A (0-2) /LPF Urine Microscopic RBC 6-10 A (0-5) /HPF Urine Microscopic WBC 3-5 (0-5) /HPF Ur Epithelial Cells Rare (None Seen) /HPF Urine Bacteria Rare A (None Seen) /HPF Urine Culture Reflexed NO (NO) Salicylates (2-20) mg/dL Urine Opiates Level NEGATIVE (NEGATIVE) Ur Methadone NEGATIVE (NEGATIVE) Acetaminophen (10-30) ug/ml Urine Barbiturates NEGATIVE (NEGATIVE) Ur Phencyclidine (PCP) NEGATIVE (NEGATIVE) Urine Amphetamine NEGATIVE (NEGATIVE) U Benzodiazepine Level NEGATIVE (NEGATIVE) Urine Cocaine NEGATIVE (NEGATIVE) Urine Marijuana (THC) POSITIVE (NEGATIVE) Ethyl Alcohol (0-10) mg/dL 12/10/22 12/10/22 12/11/22 Range/Units 21:05 21:05 00:20 WBC (4.0-10.5) x10^3/uL RBC (4.1-5.4) x10^6/uL Hgb (12.0-16.0) g/dL Hct (35-47) % MCV (78-100) fL MCH (26-32) pg MCHC (32-36) g/dL RDW (11.5-14.0) % Plt Count (150-450) x10^3/uL MPV (7.5-11.0) fL Gran % (36.0-66.0) % Immature Gran % (Auto) (0.00-0.4) % Nucleat RBC Rel Count (0.00-0.1) % Eos # (Auto) (0-0.5) x10^3/uL Immature Gran # (Auto) (0.00-0.03) x10^3u/L Absolute Lymphs (auto) (1.0-4.6) x10^3/uL Absolute Monos (auto) (0.0-1.3) x10^3/uL Absolute Nucleated RBC (0.00-0.01) x10^3u/L Lymphocytes % (24.0-44.0) % Monocytes % (0.0-12.0) % Eosinophils % (0.00-5.0) % Basophils % (0.0-0.4) % Absolute Granulocytes (1.4-6.9) x10^3/uL Basophils # (0-0.4) x10^3/uL Sodium 142 (137-145) mmol/L Potassium 3.5 (3.5-5.1) mmol/L Chloride 105 (98-107) mmol/L Carbon Dioxide 25 (22-30) mmol/L Anion Gap 15.2 H (5-15) MEQ/L BUN 9 (7-17) mg/dL Creatinine 0.71 (0.52-1.04) mg/dL Estimated GFR > 60.0 ML/MIN Glucose 100 (74-106) mg/dL Calcium 9.5 (8.4-10.2) mg/dL Total Bilirubin 0.30 (0.2-1.3) mg/dL AST 27 (14-36) U/L ALT 25 (0-35) U/L Alkaline Phosphatase 82 (38-126) U/L Serum Total Protein 7.6 (6.3-8.2) g/dL Albumin 4.6 (3.5-5.0) g/dL Serum HCG, Qual NEGATIVE (NEGATIVE) Urine Color (Yellow) Urine Appearance (Clear) Urine pH (4.6-8.0) Ur Specific [place] (1.005-1.030) Urine Protein (Negative) Urine Glucose (UA) (Negative) mg/dL Urine Ketones (Negative) Urine Blood (Negative) Urine Nitrite (Negative) Urine Bilirubin (Negative) Urine Urobilinogen (0.2) mg/dL Ur Leukocyte Esterase (Negative) U Hyaline Cast (Auto) (0-2) /LPF Urine Microscopic RBC (0-5) /HPF Urine Microscopic WBC (0-5) /HPF Ur Epithelial Cells (None Seen) /HPF Urine Bacteria (None Seen) /HPF Urine Culture Reflexed (NO) Salicylates < 1.0 L (2-20) mg/dL Urine Opiates Level (NEGATIVE) Ur Methadone (NEGATIVE) Acetaminophen 10 62 H* (10-30) ug/ml Urine Barbiturates (NEGATIVE) Ur Phencyclidine (PCP) (NEGATIVE) Urine Amphetamine (NEGATIVE) U Benzodiazepine Level (NEGATIVE) Urine Cocaine (NEGATIVE) Urine Marijuana (THC) (NEGATIVE) Ethyl Alcohol < 10 (0-10) mg/dL Assessment/Plan (1) Hypertension Current Visit: Yes Status: Acute Code(s): I10 - ESSENTIAL (PRIMARY) HYPERTENSION (2) Overdose by acetaminophen Current Visit: Yes Status: Acute Assessment & Plan: ASSESSMENT #Suicide attempt #Acetaminophen ingestion #Ibuprofen ingestion #Hypertension #History of depression and self-harm PLAN -Monitor on telemetry -Suicide precautions -Psych consult in a.m. -PRN Hydralazine Prophylaxis: SCDs, ambulation Entire Enounter performed via telemedicine Code(s): T39.1X1A - POISONING BY 4-AMINOPHENOL DERIVATIVES, ACCIDENTAL, INIT Telemedicine Encounter - Telemedicine Encounter Telemedicine Encounter: The entirety of this encounter was performed via Telemedicine"
[2022-12-11] MEDS ORDERED: APRESOLINE 20 MG/ML INJ IV PRN (05:22)
[2022-12-11] MEDS ORDERED: Docusate Sodium 100 MG PO PRN (05:23)
[2022-12-11 07:40] VITALS: TEMP 97.8; O2SAT 99
[2022-12-11 08:23] LABS: Hematocrit 39.2 % (35-47); Hemoglobin 12.8 g/dL (12.0-16.0); Mean Cell Volume 84.8 fL (78-100); Mean Corpuscular Hemoglobin 27.7 pg (26-32); Mean Corpuscular Hgb Concent. 32.7 g/dL (32-36); Platelet Count 382 x10^3/uL (150-450); Red Blood Count 4.62 x10^6/uL (4.1-5.4); Red Cell Distribution Width 12.8 % (11.5-14.0); White Blood Count 9.8 x10^3/uL (4.0-10.5)
[2022-12-11 08:37] LABS: ALBUMIN 3.9 g/dL (3.5-5.0); ALKALINE PHOSPHATASE 67 U/L (38-126); ANION GAP 11.1 MEQ/L (5-15); BLOOD UREA NITROGEN 9 mg/dL (7-17); CHLORIDE 109 mmol/L (98-107); Calcium 8.9 mg/dL (8.4-10.2); Carbon Dioxide 23 mmol/L (22-30); Creatinine 1 0.62 mg/dL (0.52-1.04); EST GLOMERULAR FILTRATION RATE > 60.0 ML/MIN; Glucose 103 mg/dL (74-106); Potassium 3.3 mmol/L (3.5-5.1); SGOT/AST 22 U/L (14-36); SGPT/ALT 22 U/L (0-35); SODIUM 139 mmol/L (137-145); Total Protein 6.5 g/dL (6.3-8.2)
[2022-12-11] MEDS ORDERED: Nicoderm CQ 21 MG TOP SCH (10:00)
[2022-12-11] MEDS: Klor Con PO SCH ×4 (10:59→15:37)
--- NOTE | 2022-12-11 14:29 | PCM.DS ---
Discharge Summary Date of Admission: 12/11/22 02:47 Date of Discharge: 12/11/22 Admitting Physician: GAIVN GALEANO MD Consults: Consults on Case 12/11/22 10:11 Consult,Ricardo [Psychiatric Consult] STAT Primary Care Provider: GUCCI MOMIN Allergies Allergies adhesive tape Adverse Reaction (Mild, Verified 12/10/22 20:44) Rash Hospital Summary - Hospital Course Hospital Course: 27-year-old female admitted for suicide attempt. She has past medical history of depression and self-harm. She reported she took a handful of tablets from a jar that had both Advil and Tylenol and it. She estimates approximately 20 to 30 pills. Immediately after taking them she drove herself to the ED. On arriv al she was tachycardic 115 hypertensive 221/166 after discussion with poison control and to acetaminophen levels which resulted at 10 and 62 NAC was not indicated. Pt states she is in a better state of mind today and had lapse of judgment. She is wanting to go home today. She discussed a safety plan with mental health and they feel she is safe to return home. - Vitals & Intake/Output Vital Signs: Vital Signs Temperature 97.8 F 12/11/22 12:00 Pulse Rate 81 12/11/22 12:00 Respiratory Rate 17 12/11/22 12:00 Blood Pressure 144/86 12/11/22 12:00 O2 Sat by Pulse Oximetry 99 12/11/22 12:00 Intake & Output: Intake & Output 12/09/22 12/10/22 12/11/22 12/12/22 11:59 11:59 11:59 11:59 Intake Total 360 120 Balance 360 120 Weight 106 kg - Lab Result Diagrams: 12/11/22 08:22 12/11/22 08:22 Lab Results-Last 24 Hrs: Lab Results-Last 24 Hours 12/10/22 12/10/22 12/10/22 Range/Units 21:00 21:00 21:05 WBC 14.5 H (4.0-10.5) x10^3/uL RBC 5.17 (4.1-5.4) x10^6/uL Hgb 14.1 (12.0-16.0) g/dL Hct 43.5 (35-47) % MCV 84.1 (78-100) fL MCH 27.3 (26-32) pg MCHC 32.4 (32-36) g/dL RDW 12.6 (11.5-14.0) % Plt Count 429 (150-450) x10^3/uL MPV 11.4 H (7.5-11.0) fL Gran % 60.1 (36.0-66.0) % Immature Gran % (Auto) 0.4 (0.00-0.4) % Nucleat RBC Rel Count 0.0 (0.00-0.1) % Eos # (Auto) 0.21 (0-0.5) x10^3/uL Immature Gran # (Auto) 0.06 H (0.00-0.03) x10^3u/L Absolute Lymphs (auto) 4.44 (1.0-4.6) x10^3/uL Absolute Monos (auto) 0.97 (0.0-1.3) x10^3/uL Absolute Nucleated RBC 0.00 (0.00-0.01) x10^3u/L Lymphocytes % 30.6 (24.0-44.0) % Monocytes % 6.7 (0.0-12.0) % Eosinophils % 1.4 (0.00-5.0) % Basophils % 0.8 (0.0-0.4) % Absolute Granulocytes 8.69 H (1.4-6.9) x10^3/uL Basophils # 0.12 (0-0.4) x10^3/uL Sodium (137-145) mmol/L Potassium (3.5-5.1) mmol/L Chloride (98-107) mmol/L Carbon Dioxide (22-30) mmol/L Anion Gap (5-15) MEQ/L BUN (7-17) mg/dL Creatinine (0.52-1.04) mg/dL Estimated GFR ML/MIN Glucose (74-106) mg/dL Calcium (8.4-10.2) mg/dL Total Bilirubin (0.2-1.3) mg/dL AST (14-36) U/L ALT (0-35) U/L Alkaline Phosphatase (38-126) U/L Serum Total Protein (6.3-8.2) g/dL Albumin (3.5-5.0) g/dL Serum HCG, Qual (NEGATIVE) Urine Color Yellow (Yellow) Urine Appearance Clear (Clear) Urine pH 7.0 (4.6-8.0) Ur Specific [place] 1.025 (1.005-1.030) Urine Protein Trace A (Negative) Urine Glucose (UA) Negative (Negative) mg/dL Urine Ketones 15 A (Negative) Urine Blood Negative (Negative) Urine Nitrite Negative (Negative) Urine Bilirubin Negative (Negative) Urine Urobilinogen 0.2 (0.2) mg/dL Ur Leukocyte Esterase Negative (Negative) U Hyaline Cast (Auto) 3-5 A (0-2) /LPF Urine Microscopic RBC 6-10 A (0-5) /HPF Urine Microscopic WBC 3-5 (0-5) /HPF Ur Epithelial Cells Rare (None Seen) /HPF Urine Bacteria Rare A (None Seen) /HPF Urine Culture Reflexed NO (NO) Salicylates (2-20) mg/dL Urine Opiates Level NEGATIVE (NEGATIVE) Ur Methadone NEGATIVE (NEGATIVE) Acetaminophen (10-30) ug/ml Urine Barbiturates NEGATIVE (NEGATIVE) Ur Phencyclidine (PCP) NEGATIVE (NEGATIVE) Urine Amphetamine NEGATIVE (NEGATIVE) U Benzodiazepine Level NEGATIVE (NEGATIVE) Urine Cocaine NEGATIVE (NEGATIVE) Urine Marijuana (THC) POSITIVE (NEGATIVE) Ethyl Alcohol (0-10) mg/dL 12/10/22 12/10/22 12/11/22 Range/Units 21:05 21:05 00:20 WBC (4.0-10.5) x10^3/uL RBC (4.1-5.4) x10^6/uL Hgb (12.0-16.0) g/dL Hct (35-47) % MCV (78-100) fL MCH (26-32) pg MCHC (32-36) g/dL RDW (11.5-14.0) % Plt Count (150-450) x10^3/uL MPV (7.5-11.0) fL Gran % (36.0-66.0) % Immature Gran % (Auto) (0.00-0.4) % Nucleat RBC Rel Count (0.00-0.1) % Eos # (Auto) (0-0.5) x10^3/uL Immature Gran # (Auto) (0.00-0.03) x10^3u/L Absolute Lymphs (auto) (1.0-4.6) x10^3/uL Absolute Monos (auto) (0.0-1.3) x10^3/uL Absolute Nucleated RBC (0.00-0.01) x10^3u/L Lymphocytes % (24.0-44.0) % Monocytes % (0.0-12.0) % Eosinophils % (0.00-5.0) % Basophils % (0.0-0.4) % Absolute Granulocytes (1.4-6.9) x10^3/uL Basophils # (0-0.4) x10^3/uL Sodium 142 (137-145) mmol/L Potassium 3.5 (3.5-5.1) mmol/L Chloride 105 (98-107) mmol/L Carbon Dioxide 25 (22-30) mmol/L Anion Gap 15.2 H (5-15) MEQ/L BUN 9 (7-17) mg/dL Creatinine 0.71 (0.52-1.04) mg/dL Estimated GFR > 60.0 ML/MIN Glucose 100 (74-106) mg/dL Calcium 9.5 (8.4-10.2) mg/dL Total Bilirubin 0.30 (0.2-1.3) mg/dL AST 27 (14-36) U/L ALT 25 (0-35) U/L Alkaline Phosphatase 82 (38-126) U/L Serum Total Protein 7.6 (6.3-8.2) g/dL Albumin 4.6 (3.5-5.0) g/dL Serum HCG, Qual NEGATIVE (NEGATIVE) Urine Color (Yellow) Urine Appearance (Clear) Urine pH (4.6-8.0) Ur Specific [place] (1.005-1.030) Urine Protein (Negative) Urine Glucose (UA) (Negative) mg/dL Urine Ketones (Negative) Urine Blood (Negative) Urine Nitrite (Negative) Urine Bilirubin (Negative) Urine Urobilinogen (0.2) mg/dL Ur Leukocyte Esterase (Negative) U Hyaline Cast (Auto) (0-2) /LPF Urine Microscopic RBC (0-5) /HPF Urine Microscopic WBC (0-5) /HPF Ur Epithelial Cells (None Seen) /HPF Urine Bacteria (None Seen) /HPF Urine Culture Reflexed (NO) Salicylates < 1.0 L (2-20) mg/dL Urine Opiates Level (NEGATIVE) Ur Methadone (NEGATIVE) Acetaminophen 10 62 H* (10-30) ug/ml Urine Barbiturates (NEGATIVE) Ur Phencyclidine (PCP) (NEGATIVE) Urine Amphetamine (NEGATIVE) U Benzodiazepine Level (NEGATIVE) Urine Cocaine (NEGATIVE) Urine Marijuana (THC) (NEGATIVE) Ethyl Alcohol < 10 (0-10) mg/dL 12/11/22 12/11/22 12/11/22 Range/Units 08:22 08:22 08:22 WBC 9.8 (4.0-10.5) x10^3/uL RBC 4.62 (4.1-5.4) x10^6/uL Hgb 12.8 (12.0-16.0) g/dL Hct 39.2 (35-47) % MCV 84.8 (78-100) fL MCH 27.7 (26-32) pg MCHC 32.7 (32-36) g/dL RDW 12.8 (11.5-14.0) % Plt Count 382 (150-450) x10^3/uL MPV 11.0 (7.5-11.0) fL Gran % (36.0-66.0) % Immature Gran % (Auto) (0.00-0.4) % Nucleat RBC Rel Count (0.00-0.1) % Eos # (Auto) (0-0.5) x10^3/uL Immature Gran # (Auto) (0.00-0.03) x10^3u/L Absolute Lymphs (auto) (1.0-4.6) x10^3/uL Absolute Monos (auto) (0.0-1.3) x10^3/uL Absolute Nucleated RBC (0.00-0.01) x10^3u/L Lymphocytes % (24.0-44.0) % Monocytes % (0.0-12.0) % Eosinophils % (0.00-5.0) % Basophils % (0.0-0.4) % Absolute Granulocytes (1.4-6.9) x10^3/uL Basophils # (0-0.4) x10^3/uL Sodium 139 (137-145) mmol/L Potassium 3.3 L (3.5-5.1) mmol/L Chloride 109 H (98-107) mmol/L Carbon Dioxide 23 (22-30) mmol/L Anion Gap 11.1 (5-15) MEQ/L BUN 9 (7-17) mg/dL Creatinine 0.62 (0.52-1.04) mg/dL Estimated GFR > 60.0 ML/MIN Glucose 103 (74-106) mg/dL Calcium 8.9 (8.4-10.2) mg/dL Total Bilirubin 0.30 (0.2-1.3) mg/dL AST 22 (14-36) U/L ALT 22 (0-35) U/L Alkaline Phosphatase 67 (38-126) U/L Serum Total Protein 6.5 (6.3-8.2) g/dL Albumin 3.9 (3.5-5.0) g/dL Serum HCG, Qual (NEGATIVE) Urine Color (Yellow) Urine Appearance (Clear) Urine pH (4.6-8.0) Ur Specific [place] (1.005-1.030) Urine Protein (Negative) Urine Glucose (UA) (Negative) mg/dL Urine Ketones (Negative) Urine Blood (Negative) Urine Nitrite (Negative) Urine Bilirubin (Negative) Urine Urobilinogen (0.2) mg/dL Ur Leukocyte Esterase (Negative) U Hyaline Cast (Auto) (0-2) /LPF Urine Microscopic RBC (0-5) /HPF Urine Microscopic WBC (0-5) /HPF Ur Epithelial Cells (None Seen) /HPF Urine Bacteria (None Seen) /HPF Urine Culture Reflexed (NO) Salicylates (2-20) mg/dL Urine Opiates Level (NEGATIVE) Ur Methadone (NEGATIVE) Acetaminophen < 10 L (10-30) ug/ml Urine Barbiturates (NEGATIVE) Ur Phencyclidine (PCP) (NEGATIVE) Urine Amphetamine (NEGATIVE) U Benzodiazepine Level (NEGATIVE) Urine Cocaine (NEGATIVE) Urine Marijuana (THC) (NEGATIVE) Ethyl Alcohol (0-10) mg/dL Discharge Exam General Appearance: no apparent distress, alert Neurologic Exam: alert, oriented x 3, cooperative, normal mood/affect, nml cerebellar function, sensation nml, No motor deficits Eye Exam: PERRL, EOMI, eyes nml inspection Ears, Nose, Throat Exam: normal ENT inspection, pharynx normal, moist mucous membranes Neck Exam: normal inspection, non-tender, supple, full range of motion Respiratory Exam: normal breath sounds, lungs clear, No respiratory distress Cardiovascular Exam: regular rate/rhythm, normal heart sounds Gastrointestinal/Abdomen Exam: soft, No tenderness, No mass Pelvic Exam: deferred Rectal Exam: deferred Back Exam: normal inspection, normal range of motion, No CVA tenderness, No vertebral tenderness Extremity Exam: normal inspection, normal range of motion Skin Exam: normal color, warm, dry Final Diagnosis/Problem List - Final Discharge Diagnosis/Problem (1) Overdose by acetaminophen Current Visit: Yes Status: Acute Assessment & Plan: -Monitor on telemetry -Suicide precautions -Psych consult Code(s): T39.1X1A - POISONING BY 4-AMINOPHENOL DERIVATIVES, ACCIDENTAL, INIT (2) History of depression Current Visit: Yes Status: Acute Assessment & Plan: - pt currently off all meds - per psych consult ok to d/c home with safety plan Code(s): Z86.59 - PERSONAL HISTORY OF OTHER MENTAL AND BEHAVIORAL DISORDERS (3) History of self-harm Current Visit: Yes Status: Acute Assessment & Plan: - scars visible - no current open lesions Code(s): [id number] - (4) Hypertension Current Visit: Yes Status: Acute Assessment & Plan: - PRN IV meds - Stable Code(s): I10 - ESSENTIAL (PRIMARY) HYPERTENSION (5) Smoker Current Visit: Yes Status: Acute Assessment & Plan: - nicotine patch - smokes 1 ppd - advised cessation Code(s): F17.200 - NICOTINE DEPENDENCE, UNSPECIFIED, UNCOMPLICATED - Discharge Discharge Date: 12/11/22 Disposition: Home, Self-Care Condition: Stable Prescriptions: No Action No Reportable Medications [No Reported Medications] Follow up with: GUCCI MOMIN NP [Primary Care Provider] -
[2022-12-11 17:16] VITALS: BP 174/96; PULSE 87; RESP 18
== END 2022-12-11 16:12 | disposition home or self-care (01) ==
LOC: ED 20:37 → MED SURG 12-11 02:47
PROVIDERS: ADMIT Internal Medicine; ATTEND Internal Medicine
DX: T39.1X2A Poisoning by 4-Aminophenol derivatives, intentional self-harm, initial encounter (principal); I10 Essential (primary) hypertension; F17.200 Nicotine dependence, unspecified, uncomplicated; Z86.59 Personal history of other mental and behavioral disorders; Z91.52 Personal history of nonsuicidal self-harm; Z20.828 Contact with and (suspected) exposure to other viral communicable diseases
CPT/HCPCS: 36000; 36415; 80053; 80143; 80179; 80307; 81001; 82077; 84703; 85025; 85027; 93005; 96374; 99285; 99291; G0378; J0360; Q3014; A9270-GY

== ENCOUNTER 2023-04-13 07:56 | Emergency (ER) | payer OTHER ==
[2023-04-13 08:12] VITALS: TEMP 98.2
[2023-04-13] MEDS ORDERED: TRANDATE 20 MG/4 ML SYRINGE IV ONE ×2 (08:25→08:53)
[2023-04-13] MEDS ORDERED: Ativan 2 MG/1 ML VIAL IV ONE (08:25)
[2023-04-13] MEDS ORDERED: Sodium Chloride 0.9% 1000 ML 1,000 ML IV SCH (08:30)
[2023-04-13 08:38] VITALS: O2SAT 100
[2023-04-13 08:38] LABS: BASOPHIL % 0.8 % (0.0-0.4); Basophil (Absolute #) 0.08 x10^3/uL (0-0.4); Hematocrit 42.8 % (35-47); IMMATURE GRAN # 0.03 x10^3u/L (0.00-0.03); IMMATURE GRAN % 0.3 % (0.00-0.4); Lymphocyte (Absolute #) 2.37 x10^3/uL (1.0-4.6); Lymphocytes % 24.4 % (24.0-44.0); Mean Cell Volume 83.8 fL (78-100); Mean Corpuscular Hemoglobin 27.4 pg (26-32); Mean Corpuscular Hgb Concent. 32.7 g/dL (32-36); Mean Platelet Volume 10.6 fL (7.5-11.0); Monocyte (Absolute #) 0.42 x10^3/uL (0.0-1.3); Monocytes % 4.3 % (0.0-12.0); Neutrophil % 69.2 % (36.0-66.0); Platelet Count 430 x10^3/uL (150-450); Red Blood Count 5.11 x10^6/uL (4.1-5.4); White Blood Count 9.7 x10^3/uL (4.0-10.5)
[2023-04-13] MEDS ORDERED: Ativan 2 MG/1 ML VIAL ONE (08:52)
[2023-04-13] MEDS ORDERED: Sodium Chloride 0.9% 1000 ML 1,000 ML ONE (08:53)
--- NOTE | 2023-04-13 08:54 | ERPHSYRPT ---
- History of Present Illness Time Seen by Provider: 04/13/23 08:52 Source: patient Exam Limitations: no limitations Patient Subjective Stated Complaint: HTN Triage Nursing Assessment: Patient ambulated back to ED and transferred self to bed. Patient A+O X3. Patient's skin pink, warm and dry. Patient complains of HTN for the past week. Patient states she has not been able to sleep in roughly 46 hours due to unknown causes. Patient states also for the past week she has been feeling "waves" on right side of head. Patient states today at work her vision started getting blurry. Patient complains of headache 06/22. Physician History: Patient is 28-year-old female without any significant past medical history started having funny feeling on her right side of the head and right side of the body. She also is feeling that her blood pressure is running high. She has been working constantly for last 48 hours and try to keep her awake she is drinking energy drinks. When she came to the emergency room her blood pressure was 208/114. She denies any chest pain nausea vomiting. She denies any weakness. Timing/Duration: day(s) (2-3 days) Severity of Pain-Max: none Severity of Pain-Current: none Nitro Today/Relief: no nitro taken today Aspirin Treatment Today: no aspirin today Associated Symptoms: denies symptoms Allergies/Adverse Reactions: adhesive tape Adverse Reaction (Mild, Verified 04/13/23 08:07) Rash Hx Tetanus, Diphtheria Vaccination/Date Given: No Hx Influenza Vaccination/Date Given: No Hx Pneumococcal Vaccination/Date Given: No Immunizations Up to Date: Yes Travel Risk - International Travel Have you traveled outside of the country in past 3 weeks: No - Coronavirus Screening Are you exhibiting any of the following symptoms?: No Close contact with a COVID-19 positive Pt in past 14-21 Days: No - Vaccine Status Have you recieved a Covid-19 vaccination: No - Review of Systems Constitutional: No Fever, No Chills Eyes: No Symptoms Ears, Nose, & Throat: No Symptoms Respiratory: No Cough, No Dyspnea Cardiac: No Chest Pain, No Edema, No Syncope Abdominal/Gastrointestinal: No Abdominal Pain, No Nausea, No Vomiting, No Diarrhea Genitourinary Symptoms: No Dysuria Musculoskeletal: No Back Pain, No Neck Pain Skin: No Rash Neurological: No Dizziness, No Focal Weakness, No Sensory Changes Psychological: No Symptoms Endocrine: No Symptoms All Other Systems: Reviewed and Negative - Past Medical History Pertinent Past Medical History: Yes Neurological History: Seizures, Other ENT History: No Pertinent History Cardiac History: No Pertinent History Respiratory History: No Pertinent History Endocrine Medical History: No Pertinent History Musculoskeletal History: No Pertinent History, Other GI Medical History: Colitis History: No Pertinent History Psycho-Social History: Anxiety, Depression Female Reproductive Disorders: No Pertinent History Other Medical History: HAS HISTORY OF HEADACHES HAS BEEN WORKED UP FOR STOMACH PROBLEMS, hx of syncope, Hx of seizures. Has nodule on left wrist. - Past Surgical History Past Surgical History: Yes Neuro Surgical History: No Pertinent History Cardiac: No Pertinent History Respiratory: No Pertinent History Gastrointestinal: Other Genitourinary: No Pertinent History Musculoskeletal: No Pertinent History Female Surgical History: Section Other Surgical History: endoscopy to check gastric samples. (Pt states I have a history of when I eat I get sick.) pt states unknown results. colonoscopy - Social History Smoking Status: Current every day smoker How long have you smoked: 2009 Exposure to second hand smoke: No Drug Use: marijuana Patient Lives Alone: No Significant Family History: no pertinent family hx - Female History Hx Last Menstrual Period: depo Hx Now: No - Nursing Vital Signs Nursing Vital Signs: Initial Vital Signs Pulse Rate 92 H 04/13/23 08:05 Respiratory Rate 21 04/13/23 08:05 Blood Pressure 204/106 04/13/23 08:05 O2 Sat by Pulse Oximetry 99 04/13/23 08:05 Pain Scale Pain Intensity 3 - Physical Exam General Appearance: no apparent distress, alert Eye Exam: PERRL/EOMI, eyes nml inspection Ears, Nose, Throat Exam: normal ENT inspection, moist mucous membranes Neck Exam: normal inspection, non-tender, supple Respiratory Exam: normal breath sounds, lungs clear, No respiratory distress Cardiovascular Exam: regular rate/rhythm, normal heart sounds, No edema Gastrointestinal/Abdomen Exam: soft, No tenderness, No mass Back Exam: normal inspection, No CVA tenderness, No vertebral tenderness Extremity Exam: normal inspection, normal range of motion Neurologic Exam: alert, oriented x 3, cooperative, normal mood/affect, nml cerebellar function, sensation nml, No motor deficits Skin Exam: normal color, warm, dry Lymphatic Exam: No adenopathy SpO2: 100 - Course Nursing assessment & vital signs reviewed: Yes EKG Interpreted by Me: Sinus Rhythm Rhythm Strip: Normal Sinus Rhythm Ordered Tests: Active Orders 24 hr Category Date Time Status EKG-ER Only STAT Care 04/13/23 08:25 Active CBC W DIFF Stat Lab 04/13/23 08:34 Completed CMP Stat Lab 04/13/23 08:34 Completed MAGNESIUM Stat Lab 04/13/23 08:34 Completed TROPONIN Stat Lab 04/13/23 08:34 Completed Medication Summary Generic Name Dose Route Start Last Admin Trade Name Freq PRN Reason Stop Dose Admin Sodium Chloride 1,000 mls @ 100 mls/hr 04/13/23 08:30 04/13/23 08:54 Sodium Chloride 0.9% 1000 Ml IV 05/13/23 08:29 100 mls/hr .Q10H GAURAV Administration Discontinued Medications Generic Name Dose Route Start Last Admin Trade Name Freq PRN Reason Stop Dose Admin Labetalol HCl 10 mg 04/13/23 08:25 04/13/23 08:57 Labetalol Hcl 20 Mg/4 Ml Disp.Syringe IV 04/13/23 08:26 10 mg STAT ONE Administration Labetalol HCl Confirm 04/13/23 08:53 Labetalol Hcl 20 Mg/4 Ml Disp.Syringe Administered 04/13/23 08:54 Dose 20 mg IV .STK-MED ONE Lorazepam 1 mg 04/13/23 08:25 04/13/23 08:56 Lorazepam 2 Mg/1 Ml 2 Mg Vial IV 04/13/23 08:26 1 mg STAT ONE Administration Lorazepam Confirm 04/13/23 08:52 Lorazepam 2 Mg/1 Ml 2 Mg Vial Administered 04/13/23 08:53 Dose 2 mg .ROUTE .STK-MED ONE Lab/Rad Data: Laboratory Result Diagrams 04/13/23 08:34 04/13/23 08:34 Laboratory Results 04/13/23 04/13/23 Range/Units 08:34 08:34 WBC 9.7 (4.0-10.5) x10^3/uL RBC 5.11 (4.1-5.4) x10^6/uL Hgb 14.0 (12.0-16.0) g/dL Hct 42.8 (35-47) % MCV 83.8 (78-100) fL MCH 27.4 (26-32) pg MCHC 32.7 (32-36) g/dL RDW 13.0 (11.5-14.0) % Plt Count 430 (150-450) x10^3/uL MPV 10.6 (7.5-11.0) fL Gran % 69.2 H (36.0-66.0) % Immature Gran % (Auto) 0.3 (0.00-0.4) % Nucleat RBC Rel Count 0.0 (0.00-0.1) % Eos # (Auto) 0.10 (0-0.5) x10^3/uL Immature Gran # (Auto) 0.03 (0.00-0.03) x10^3u/L Absolute Lymphs (auto) 2.37 (1.0-4.6) x10^3/uL Absolute Monos (auto) 0.42 (0.0-1.3) x10^3/uL Absolute Nucleated RBC 0.00 (0.00-0.01) x10^3u/L Lymphocytes % 24.4 (24.0-44.0) % Monocytes % 4.3 (0.0-12.0) % Eosinophils % 1.0 (0.00-5.0) % Basophils % 0.8 (0.0-0.4) % Absolute Granulocytes 6.70 (1.4-6.9) x10^3/uL Basophils # 0.08 (0-0.4) x10^3/uL Sodium 139 (137-145) mmol/L Potassium 3.8 (3.5-5.1) mmol/L Chloride 105 (98-107) mmol/L Carbon Dioxide 26 (22-30) mmol/L Anion Gap 11.6 (5-15) MEQ/L BUN 11 (7-17) mg/dL Creatinine 0.71 (0.52-1.04) mg/dL Estimated GFR 119.4 ML/MIN Glucose 107 H (74-106) mg/dL Calcium 9.4 (8.4-10.2) mg/dL Magnesium 1.9 (1.6-2.3) mg/dL Total Bilirubin 0.30 (0.2-1.3) mg/dL AST 24 (14-36) U/L ALT 27 (0-35) U/L Alkaline Phosphatase 82 (38-126) U/L Troponin I < 0.012 (0.000-0.034) ng/mL Serum Total Protein 7.7 (6.3-8.2) g/dL Albumin 4.4 (3.5-5.0) g/dL - Progress Progress: improved Counseled pt/family regarding: lab results, diagnosis, need for follow-up Medical Desision Making - Diagnostic Testing Diagnostic test were ordered, analyzed, and reviewed by me: Yes Radiological Interpretation: Reviewed by me - Risk of complications Low Risk: Low risk of morbidity from additional dx testing or treatment - Departure Departure Disposition: Home Clinical Impression: Elevated blood pressure reading Condition: Stable Critical Care Time: No Referrals: GUCCI MOMIN NP [Primary Care Provider] - Follow up/PCP as directed Instructions: High blood pressure in adults, High blood pressure emergencies, Controlling your blood pressure through lifestyle, High Blood Pressure (DC) Additional Instructions: . Your blood pressure was high when you came to the emergency room but after giving you 1 dose of blood pressure medicine to lower it your blood pressure has come down significantly. It appears that you are drinking energy drinks which is causing your blood pressure to go high. You also have not slept for last 2 to 3 days due to work schedule so you are advised to stay off work for at least next 2 days you can go back to work on april meanwhile we are giving you very low-dose of blood pressure medicine which you take 1 a day as well as we are giving you a low-dose of medicine which will help you sleep. Please follow-up with your primary care physician in the next 2 to 3 days. Check your blood pressure at home and if it is consistently running high and if you have any weakness or concern come back to emergency room otherwise follow-up with your primary care physician on Saturday. Discharge/Care Plan JHON CARDOZO was seen on 04/13/23 in the Emergency Room. The patient was counseled regarding Diagnosis,Lab results, Imaging studies, need for follow up and when to return to the Emergency Room. Prescriptions given: Discharge Note I have spoken with the patient and/or caregivers. I have explained the patient's condition, diagnosis and treatment plan based on the information available to me at this time. I have answered the patient's and/or caregiver's questions and addressed any concerns. The patient and/or caregivers have as good understanding of the patient's diagnosis, condition and treatment plan as can be expected at this point. The vital signs have been stable. The patient's condition is stable and appropriate for discharge from the emergency department. The patient will pursue further outpatient evaluation with the primary care physician or other designated or consulting physician as outlined in the discharge instructions. The patient and/or caregivers are agreeable to this plan of care and follow-up instructions have been explained in detail. The patient and/or caregivers have received these instruction. The patient/and or caregivers are aware that any significant change in condition or worsening of symptoms should prompt an immediate return to this or the closest emergency department or call 911. JHON CARDOZO was seen on 04/13/23 n the Emergency Room. At that time you were treated for an emergent condition, during your visit Laboratory, Radiology and/or other procedures may have been ordered. It is very important that you follow-up with your Primary Care Physician GUCCI MOMIN within the next 24-48 hours to review your Emergency Room visit and the final results of testing that was ordered. Some test results such as Urine Cultures, Blood Cultures, and other cultures if ordered will not be finalized for 24-48 hours. If you do not have a Primary Care Provider please call the medical records department at [phone] ext [phone] to obtain a copy of your results or you may sign into our patient portal to obtain these results by visiting us @ [email or web address] and completing the following steps: 1. Click on the Patient Portal link 2. Click the Patient Self Enrollment Link to complete the enrollment form and entering your 3. Once the enrollment form is completed you will receive an email with a temporary ID and password at the email address you provided. 4. Next choose a user name and password. Your user name must be at least 4 characters long and your password must be at least 4 characters long. 5. Choose a security question from the list and provide your answer to the q uestion. If you already have signed into the Health Portal you may access your Health Care Information 05/11 by the following steps: 1. Login to our website @ [email or web address] 2. Enter your original user name and password. FAQS The [facility] Portal is an online tool that contains your Lab Results, Radiology Reports, Visit History, Discharge Instructions and Health Summary Lab and Radiology Results will not be available for 72 hours on the portal. The Portal is a secure site, passwords are encryted and URLs are re-written so they cannot be copied and pasted. You and authorized family members are the only ones who can access your Portal. Also there is a timeout feature that protects your information if you leave the Portal page open. If you have technical difficulty please use the Contact Us link on the page this will allow you to submit any questions you have regarding the Portal or you may contact the Medical Record Department at [phone] ext [phone]. Forms: Work/School Release Form Prescriptions: Trazodone HCl 50 mg [Desyrel 50 mg] 50 mg PO QHS #30 tablet Labetalol HCl 100 mg [Trandate 100 MG] 100 mg PO HS #30 tablet
[2023-04-13 09:17] LABS: ALBUMIN 4.4 g/dL (3.5-5.0); ALKALINE PHOSPHATASE 82 U/L (38-126); ANION GAP 11.6 MEQ/L (5-15); BLOOD UREA NITROGEN 11 mg/dL (7-17); CHLORIDE 105 mmol/L (98-107); Calcium 9.4 mg/dL (8.4-10.2); Carbon Dioxide 26 mmol/L (22-30); Creatinine 1 0.71 mg/dL (0.52-1.04); EST GLOMERULAR FILTRATION RATE 119.4 ML/MIN; Glucose 107 mg/dL (74-106); MAGNESIUM 1.9 mg/dL (1.6-2.3); Potassium 3.8 mmol/L (3.5-5.1); SGOT/AST 24 U/L (14-36); SGPT/ALT 27 U/L (0-35); SODIUM 139 mmol/L (137-145); TROPONIN < 0.012 ng/mL (0.000-0.034); Total Protein 7.7 g/dL (6.3-8.2)
[2023-04-13 09:46] VITALS: BP 161/106; PULSE 85; RESP 19
== END 2023-04-13 09:56 | disposition home or self-care (01) ==
LOC: ED 07:56
DX: R03.0 Elevated blood-pressure reading, without diagnosis of hypertension (principal); Z28.310 Unvaccinated for COVID-19; Z72.0 Tobacco use
CPT/HCPCS: 36000; 36415; 80053; 83735; 84484; 85025; 93005; 96374; 96375; 99284; J2060

== ENCOUNTER 2023-07-05 15:50 | Emergency (ER) | payer OTHER ==
--- NOTE | 2023-07-05 16:01 | ERPHSYRPT ---
- History of Present Illness Time Seen by Provider: 07/05/23 16:30 Source: patient, family Exam Limitations: no limitations Physician History: This is an obese 28-year-old white female patient of nurse practitioner Mateo who has chronic bilateral hip pain/issues per her report. Patient went to see a chiropractor yesterday and had her back and hips manipulated/adjusted. Today, patient was making her child's bed. It is on the ground but on a box bring and it is low to the ground. When she stood up she had sharp shooting pain in both her hips and down the posterior aspect of her right buttock. She did not suffer a fall or acute traumatic injury. Patient is a daily smoker cigarettes. She has a history of hypertension, anxiety/depression and seizure disorder. She does not have any problem with urinary or bowel incontinence. She does not have numbness in her feet. Timing/Duration: today Method of Injury: bending, twisted, turning Quality: sharp, stabbing Back Pain Location: lumbar spine Back Pain Radiation: buttocks (Right side posteriorly) Associated Symptoms: lower back pain, muscle spasms, No urinary incontinence, No loss of bowel control, No constipation, No numbness in legs/feet Previous symptoms: same symptoms as today, recently seen (By a chiropractor), recently treated (By chiropractor) Allergies/Adverse Reactions: adhesive tape Adverse Reaction (Mild, Verified 07/05/23 16:19) Rash Home Medications: Buspirone HCl 10 mg PO BID 07/05/23 [History] Labetalol HCl 100 mg [Trandate 100 MG] 100 mg PO BID 07/05/23 [History] Losartan Potassium 50 mg [Cozaar 50 MG] 50 mg PO DAILY 07/05/23 [History] Sertraline HCl 50 mg [Zoloft 50 mg Tablet] 50 mg PO DAILY 07/05/23 [History] Hx Tetanus, Diphtheria Vaccination/Date Given: No Hx Influenza Vaccination/Date Given: No Hx Pneumococcal Vaccination/Date Given: No Travel Risk - International Travel Have you traveled outside of the country in past 3 weeks: No - Emerging Infectious Disease Are you exhibiting symptoms associated with any current EIDs: No - Vaccine Status Hx Covid Vaccintation/Booster/Date Given: No - Review of Systems Constitutional: No Symptoms Eyes: No Symptoms Ears, Nose, & Throat: No Symptoms Respiratory: No Symptoms Cardiac: No Symptoms Abdominal/Gastrointestinal: No Symptoms Genitourinary Symptoms: No Symptoms Musculoskeletal: Back Pain, No Injury Skin: No Symptoms Neurological: No Symptoms Psychological: No Symptoms Endocrine: No Symptoms Hematologic/Lymphatic: No Symptoms Immunological/Allergic: No Symptoms All Other Systems: Reviewed and Negative - Past Medical History Pertinent Past Medical History: Yes Neurological History: Seizures, Other ENT History: No Pertinent History Cardiac History: No Pertinent History Respiratory History: No Pertinent History Endocrine Medical History: No Pertinent History Musculoskeletal History: No Pertinent History, Other GI Medical History: Colitis History: No Pertinent History Psycho-Social History: Anxiety, Depression Female Reproductive Disorders: No Pertinent History Other Medical History: HAS HISTORY OF HEADACHES HAS BEEN WORKED UP FOR STOMACH PROBLEMS, hx of syncope, Hx of seizures. Has nodule on left wrist. - Past Surgical History Past Surgical History: Yes Neuro Surgical History: No Pertinent History Cardiac: No Pertinent History Respiratory: No Pertinent History Gastrointestinal: Other Genitourinary: No Pertinent History Musculoskeletal: No Pertinent History Female Surgical History: Section Other Surgical History: endoscopy to check gastric samples. (Pt states I have a history of when I eat I get sick.) pt states unknown results. colonoscopy Significant Family History: no pertinent family hx - Social History Smoking Status: Current every day smoker How long have you smoked: 2009 Exposure to second hand smoke: No Drug Use: marijuana Patient Lives Alone: No - Nursing Vital Signs Nursing Vital Signs: Initial Vital Signs Temperature 98.4 F 07/05/23 16:04 Pulse Rate 100 H 07/05/23 16:04 Blood Pressure 172/105 07/05/23 16:04 O2 Sat by Pulse Oximetry 97 07/05/23 16:04 Pain Scale Pain Intensity [Posterior 6 Distal Back] Pain Intensity 6 - Physical Exam General Appearance: no apparent distress, alert, anxiety, obese Eye Exam: PERRL/EOMI, eyes nml inspection Ears, Nose, Throat Exam: normal ENT inspection, moist mucous membranes Neck Exam: normal inspection, non-tender, supple, full range of motion Respiratory Exam: normal breath sounds, lungs clear, airway intact, No chest tenderness, No respiratory distress Cardiovascular Exam: regular rate/rhythm, normal heart sounds, normal peripheral pulses Gastrointestinal Exam: soft, normal bowel sounds, No tenderness Pelvic Exam: not done Rectal Exam: not done Back Exam: normal inspection, decreased range of motion, muscle spasm Extremity Exam: normal inspection, normal range of motion, pelvis stable Neurologic Exam: alert, oriented x 3, cooperative, project portfolio analyst II-XII nml as tested, normal mood/affect Skin Exam: normal color, warm, dry Lymphatic Exam: No adenopathy SpO2 Interpretation: normal O2 Delivery: Room Air - Course Nursing assessment & vital signs reviewed: Yes Ordered Tests: Active Orders 24 hr Category Date Time Status LUMBAR LIMITED (2 OR 3 VIEWS) Stat Exams 07/05/23 16:38 Taken PELVIS (1 OR 2 VIEWS) Stat Exams 07/05/23 16:37 Taken Medication Summary Discontinued Medications Generic Name Dose Route Start Last Admin Trade Name Freq PRN Reason Stop Dose Admin Methylprednisolone Sodium 0 mg 07/05/23 16:36 07/05/23 17:06 Succinate 125 mg/ Sterile IM 07/05/23 16:37 125 mg Water 2 ml STAT ONE Administration Hydromorphone HCl 0.5 mg 07/05/23 16:36 07/05/23 17:03 Hydromorphone 1 Mg/1ml Inj IM 07/05/23 16:37 0.5 mg STAT ONE Administration Hydromorphone HCl Confirm 07/05/23 16:58 Hydromorphone 1 Mg/1ml Inj Administered 07/05/23 16:59 Dose 1 mg .ROUTE .STK-MED ONE Methylprednisolone Sodium Succinate Confirm 07/05/23 16:58 Methylprednis Sod Succ 125 Mg/2 Ml Vial Administered 07/05/23 16:59 Dose 125 mg .ROUTE .STK-MED ONE Ondansetron HCl 4 mg 07/05/23 16:37 07/05/23 17:03 Zofran 4 Mg/Udtablet Orally Disintegrating PO 07/05/23 16:38 4 mg STAT ONE Administration Ondansetron HCl Confirm 07/05/23 16:57 Zofran 4 Mg/Udtablet Orally Disintegrating Administered 07/05/23 16:58 Dose 4 mg .ROUTE .STK-MED ONE Orphenadrine Citrate 60 mg 07/05/23 16:37 07/05/23 17:05 Orphenadrine Citrate 60 Mg/2 Ml Vial IM 07/05/23 16:38 60 mg STAT ONE Administration Orphenadrine Citrate Confirm 07/05/23 16:57 Orphenadrine Citrate 60 Mg/2 Ml Vial Administered 07/05/23 16:58 Dose 60 mg .ROUTE .STK-MED ONE Sterile Water Confirm 07/05/23 16:57 Water For Injection,Sterile 10 Ml Vial Administered 07/05/23 16:58 Dose 10 ml IJ .STK-MED ONE - Progress Progress: improved, pain not gone completely, re-examined Progress Note: 07/05/23 17:39 This patient's medical issue is 1 of low complexity. Level complex in the workup performed is based on review of the patient's past medical history, review the patient's medication list, review of patient drug allergy list, history present illness and physical findings on examination. The workup in this patient includes x-ray of her bilateral hips as well as her lower back (lumbar spine). We will also provide her with an injection of orphenadrine, Solu-Medrol, Dilaudid, and oral Zofran. 07/05/23 18:09 I interpreted the pelvic x-ray. There is no evidence of any acute fracture or dislocation. I interpreted the lumbar spine x-rays. There are no acute fractures or subluxations present. Counseled pt/family regarding: diagnosis, need for follow-up, rad results Medical Desision Making - Independent Historian Additional History obtained from: Mother - Diagnostic Testing Diagnostic test were ordered, analyzed, and reviewed by me: Yes Radiological Interpretation: Interpreted by me - Risk of complications The pt has a mod risk of morbidity or mortality based on: Need for prescription drug management - Departure Departure Disposition: Home Clinical Impression: Low back pain, Sciatica Condition: Stable Critical Care Time: No Referrals: GUCCI MOMIN NP [Primary Care Provider] - Follow up/PCP as directed Additional Instructions: Take your medication as prescribed. Alternate ice and heat to the lower back pain region. May lay down flat and do a few back exercises. Look up on Internet for back exercises that can be performed by laying down. Call your primary care provider on 07/08/2023, to make arrangements for follow-up appointment to be seen in the next 3 to 5 days. Prescriptions: Prednisone 10 mg [Deltasone 10 mg] 10 mg PO TID #12 tablet Orphenadrine Citrate 100 mg [Norflex 100 MG Tablet] 100 mg PO BID #10 tab
[2023-07-05 16:19] VITALS: TEMP 98.4
[2023-07-05] MEDS ORDERED: Norflex 60 MG/2 ML ONE (16:57)
[2023-07-05] MEDS ORDERED: Sterile H2O 10 ml IJ ONE (16:57)
[2023-07-05] MEDS ORDERED: ZOFRAN ODT 4 MG ONE (16:57)
[2023-07-05] MEDS ORDERED: Hydromorphone 1 mg/ml Injection ONE (16:58)
[2023-07-05] MEDS ORDERED: solu-MEDROL ONE (16:58)
[2023-07-05] MEDS: ZOFRAN ODT 4 MG PO ONE (17:03)
[2023-07-05] MEDS: Hydromorphone 1 mg/ml Injection IM ONE (17:03)
[2023-07-05] MEDS: Norflex 60 MG/2 ML IM ONE (17:05)
[2023-07-05] MEDS: solu-MEDROL 125 MG, Sterile H2O 10 ml 2 ML IM ONE (17:06)
[2023-07-05 18:27] VITALS: BP 134/88; PULSE 88; RESP 16; O2SAT 96
--- NOTE | 2023-07-05 20:24 | XRAY ---
Indication: Posterior bony pelvic pain. Comparison: None Single AP pelvis obtained. No bony, articular, or soft tissue abnormalities.
--- NOTE | 2023-07-05 20:24 | XRAY ---
Indication: Sciatica. Low back pain. Comparison: January 02, 2022 3 view lumbar spine unchanged again demonstrating normal bones, articulation, and soft tissues. Again incidental L4 limbus vertebrae. No new/acute abnormalities.
== END 2023-07-05 18:27 | disposition home or self-care (01) ==
LOC: ED 15:50
DX: M54.41 Lumbago with sciatica, right side (principal); I10 Essential (primary) hypertension; Z79.52 Long term (current) use of systemic steroids; Z79.899 Other long term (current) drug therapy; Z28.310 Unvaccinated for COVID-19; Z72.0 Tobacco use
CPT/HCPCS: 72100; 72170; 96372; 99284; J1170; J2360; J2930; Q0162

== ENCOUNTER 2023-10-02 14:16 | Emergency (ER) | payer OTHER | END 2023-10-02 16:50 | disposition left against medical advice (07) | LOC: ED 14:16 | DX: Z53.21 Procedure and treatment not carried out due to patient leaving prior to being seen by health care provider (principal) ==

== ENCOUNTER 2024-01-11 19:40 | Emergency (ER) | payer OTHER ==
[2024-01-11 19:58] VITALS: TEMP 98.1
[2024-01-11 20:08] LABS: Appearance Cloudy (Clear); Bacteria Many /HPF (None Seen); Bilirubin Negative (Negative); Blood Negative (Negative); Epithelial Cells Moderate /HPF (None Seen); Glucose, Urine Negative (Negative); Ketones Negative (Negative); Leukocyte Esterase Moderate (Negative); Nitrite Negative (Negative); Ph 5.5 (4.6-8.0); Protein,Urine Dip Negative (Negative); Specific Gravity 1.025 (1.005-1.030); Urobilinogen 0.2 mg/dL (0.2)
[2024-01-11 20:09] LABS: Hyaline Casts None Seen /LPF (0-2)
--- NOTE | 2024-01-11 20:33 | ERPHSYRPT ---
- History of Present Illness Time Seen by Provider: 01/11/24 20:22 Source: patient Exam Limitations: no limitations Patient Subjective Stated Complaint: c/o of bilat. lower back pain Triage Nursing Assessment: pt brought self to Ed with c/o of bilat. lower back pain that radiates down both legs. Rates pain 10/10. Pt was lifting pop bibs out of her car and felt a pop in her back. states that the pain was progressively getting worse and had severe pain when taking a step backwards. states that she has a slipped disc and quit going to physical therapy. Pt is hypertensive, tachycardic, skin is w/n/d, pulses normal, gait steady, pt doesn't appear to be in any distress. Physician History: About 5 hours ago pt was lifting 2 about 20 - 30 # boxes of pop bibs from the back seat of her car during work at the [employer] when she started with right lower back pain radiating to her right ankle. Pt denies fever, chest pain, shortness of air, abdominal pain. Allergies/Adverse Reactions: adhesive tape Adverse Reaction (Mild, Verified 01/11/24 19:58) Rash Home Medications: Buspirone HCl 10 mg PO BID 07/05/23 [History] Labetalol HCl 100 mg [Trandate 100 MG] 100 mg PO BID 07/05/23 [History] Losartan Potassium 50 mg [Cozaar 50 MG] 50 mg PO DAILY 07/05/23 [History] Sertraline HCl 50 mg [Zoloft 50 mg Tablet] 50 mg PO DAILY 07/05/23 [History] Trazodone HCl 100 mg PO DAILY 01/11/24 [History] Hx Tetanus, Diphtheria Vaccination/Date Given: No Hx Influenza Vaccination/Date Given: No Hx Pneumococcal Vaccination/Date Given: No Travel Risk - International Travel Have you traveled outside of the country in past 3 weeks: No - Emerging Infectious Disease Are you exhibiting symptoms associated with any current EIDs: No - Review of Systems Constitutional: No Fever Respiratory: No Dyspnea Cardiac: No Chest Pain Abdominal/Gastrointestinal: No Abdominal Pain Musculoskeletal: Back Pain, No Neck Pain - Past Medical History Pertinent Past Medical History: Yes Neurological History: Seizures ENT History: No Pertinent History Cardiac History: High Cholesterol, Hypertension Respiratory History: No Pertinent History Endocrine Medical History: No Pertinent History Musculoskeletal History: No Pertinent History GI Medical History: Colitis History: No Pertinent History Psycho-Social History: Anxiety, Depression Female Reproductive Disorders: No Pertinent History Other Medical History: PMH: SEE ABOVE. PSH: 2 C-SECTIONS - Past Surgical History Past Surgical History: Yes Neuro Surgical History: No Pertinent History Cardiac: No Pertinent History Respiratory: No Pertinent History Gastrointestinal: Other Genitourinary: No Pertinent History Musculoskeletal: No Pertinent History Female Surgical History: Section Other Surgical History: endoscopy to check gastric samples. (Pt states I have a history of when I eat I get sick.) pt states unknown results. colonoscopy Significant Family History: no pertinent family hx - Female History Hx Last Menstrual Period: a month ago Hx Now: No - Social History Smoking Status: Current every day smoker How long have you smoked: 2009 Exposure to second hand smoke: No Drug Use: marijuana Patient Lives Alone: No - Social Determinants of Health Will the patient participate in the screening: Yes Do you worry about a steady place to live?: No Do you have any problems with any of the following?: No known problems In the past 12 months,have you had to go without utilities?: No Transportation Issues: No Has anyone in your support network made you feel unsafe?: No Have you or anyone in your house had to go without enough: No - Nursing Vital Signs Nursing Vital Signs: Initial Vital Signs Temperature 98.1 F 01/11/24 19:43 Pulse Rate 105 H 01/11/24 19:43 Respiratory Rate 18 01/11/24 19:43 Blood Pressure 197/140 01/11/24 19:43 O2 Sat by Pulse Oximetry 94 L 01/11/24 19:43 Pain Scale Pain Intensity [Lower Back] 7 Pain Intensity 7 - Physical Exam General Appearance: alert Eye Exam: PERRL/EOMI Ears, Nose, Throat Exam: TMs normal, pharynx normal Neck Exam: normal inspection Respiratory Exam: lungs clear, airway intact Cardiovascular Exam: normal heart sounds Gastrointestinal Exam: normal bowel sounds Back Exam: other (Mild tenderness over the right lower back) Extremity Exam: normal range of motion Peripheral Pulses: dorsalis-pedis (R): 2+, dorsalis-pedis (L): 2+ Neurologic Exam: alert, cooperative, sensation nml, No motor deficits Skin Exam: warm, dry SpO2 Interpretation: normal SpO2: 94 O2 Delivery: Room Air - Course Nursing assessment & vital signs reviewed: Yes - CT Exams Lumbar Spine CT Interpretation: Discussed w/radiologist (Straightening of the lumbar spine noted maybe positional vs. due to muscle spasm. See rest of report.) Ordered Tests: Active Orders 24 hr Category Date Time Status LUMBAR SPINE W/O [CT] Stat Exams 01/11/24 20:35 Completed CULTURE,URINE Stat Lab 01/11/24 19:45 Received UA W/RFX UR CULTURE Stat Lab 01/11/24 19:45 Completed Medication Summary Discontinued Medications Generic Name Dose Route Start Last Admin Trade Name Freq PRN Reason Stop Dose Admin Ketorolac Tromethamine 60 mg 01/11/24 20:35 01/11/24 20:42 Ketorolac Tromethamine 30 Mg/Ml Inj IM 01/11/24 20:36 60 mg STAT ONE Administration Ketorolac Tromethamine Confirm 01/11/24 20:40 Ketorolac Tromethamine 30 Mg/Ml Inj Administered 01/11/24 20:41 Dose 60 mg .ROUTE .STK-MED ONE Nitrofurantoin Macrocrystals 100 mg 01/11/24 20:34 01/11/24 20:42 Nitrofurantoin Macro 100 Mg Capsule PO 01/11/24 20:35 100 mg STAT ONE Administration Nitrofurantoin Macrocrystals Confirm 01/11/24 20:40 Nitrofurantoin Macro 100 Mg Capsule Administered 01/11/24 20:41 Dose 100 mg .ROUTE .STK-MED ONE Lab/Rad Data: Laboratory Results 01/11/24 Range/Units 19:45 Urine Color Yellow (Yellow) Urine Appearance Cloudy A (Clear) Urine pH 5.5 (4.6-8.0) Ur Specific [place] 1.025 (1.005-1.030) Urine Protein Negative (Negative) Urine Glucose (UA) Negative (Negative) mg/dL Urine Ketones Negative (Negative) Urine Blood Negative (Negative) Urine Nitrite Negative (Negative) Urine Bilirubin Negative (Negative) Urine Urobilinogen 0.2 (0.2) mg/dL Ur Leukocyte Esterase Moderate A (Negative) U Hyaline Cast (Auto) None Seen (0-2) /LPF Urine Microscopic RBC 3-5 (0-5) /HPF Urine Microscopic WBC 6-10 A (0-5) /HPF Ur Epithelial Cells Moderate A (None Seen) /HPF Urine Bacteria Many A (None Seen) /HPF Urine Culture Reflexed YES (NO) - Progress Progress: unchanged Counseled pt/family regarding: lab results, diagnosis, need for follow-up, rad results Medical Desision Making - Diagnostic Testing Diagnostic test were ordered, analyzed, and reviewed by me: Yes Radiological Interpretation: Discussed w/ radiologist - Departure Departure Disposition: Home Clinical Impression: Low back pain, UTI (urinary tract infection) Condition: Stable Critical Care Time: No Referrals: SHERIN REED NP [Primary Care Provider] - Follow up/PCP as directed Instructions: Low Back Pain (DC), Urinary Tract Infection, Adult ED Additional Instructions: Follow up with private doctor tomorrow. Forms: Work/School Release Form Prescriptions: Cyclobenzaprine HCl 10 mg [Cyclobenzaprine 10 MG] 10 mg PO TIDPRN #20 tablet Ibuprofen 600 mg PO Q6H #20 tablet Nitrofurantoin Macro 100 mg [Macrobid 100MG Capsule] 100 mg PO BID #14 cap
[2024-01-11] MEDS ORDERED: Macrobid 100MG Capsule ONE (20:40)
[2024-01-11] MEDS ORDERED: TORAdol 30 mg Injection ONE (20:40)
[2024-01-11] MEDS: TORAdol 30 mg Injection IM ONE (20:42)
[2024-01-11] MEDS: Macrobid 100MG Capsule PO ONE (20:42)
--- NOTE | 2024-01-11 21:45 | XRAY ---
CLINICAL HISTORY: pain COMPARISON: None. TECHNIQUE: CT non-contrast scan of lumbar spine was performed. Axial images were obtained with reconstructed coronal and sagittal images and submitted for interpretation. One of the following dose reduction techniques were utilized for this exam: Automated exposure control, adjustment of the mA and/or kV according to patient size, use of iterative reconstruction. FINDINGS: Vertebrae: Straightening of lumbar spine noted maybe positional vs. due to muscle spasm. Alignment is preserved. No fractures, lytic or sclerotic lesions. Normal bone density without evidence of osteopenia or osteoporosis. Limbus vertebra noted at L4. Intervertebral Discs: Normal height and signal intensity of the intervertebral discs. No evidence of disc herniation, bulging, or significant degeneration. Spinal Canal and Neural Foramina: Spinal canal is of normal caliber with no evidence of spinal stenosis. Neural foramina are patent bilaterally at all levels. No evidence of nerve root compression. Facet Joints: Normal appearance of the facet joints. No evidence of facet arthropathy or significant degenerative changes. Soft Tissues: Normal appearance of the paraspinal soft tissues. No abnormal masses, fluid collections, or signs of inflammation. IMPRESSION: 1. Straightening of lumbar spine noted maybe positional vs. due to muscle spasm. 2. L4 limbus vertebra, as normal variant. 3. Otherwise, unremarkableCT of the lumbar spine without contrast. 4. Further evaluation with MR is recommended if clinically warranted. Electronically Signed by: Alina Putnam MD. (01/11/2024 21:41:55 EDT)
[2024-01-11 22:04] VITALS: BP 166/101; PULSE 86; RESP 19
[2024-01-11 22:37] VITALS: O2SAT 94
== END 2024-01-11 22:48 | disposition home or self-care (01) ==
LOC: ED 19:40
DX: M54.50 Low back pain, unspecified (principal); N39.0 Urinary tract infection, site not specified; E78.5 Hyperlipidemia, unspecified; I10 Essential (primary) hypertension; Z79.899 Other long term (current) drug therapy; Z72.0 Tobacco use
CPT/HCPCS: 72131; 81001; 87086; 96372; 99284; J1885; A9270-GY

== ENCOUNTER 2024-02-26 14:47 | Emergency (ER) | payer OTHER ==
--- NOTE | 2024-02-26 14:59 | ERPHSYRPT ---
- History of Present Illness Time Seen by Provider: 02/26/24 14:59 Source: patient Exam Limitations: no limitations Physician History: This is a 29-year-old white female patient who presents with a persistent headache and intermittent dizziness and and felt she had high blood pressure at home. She did not measure her blood pressure but she has had the similar symptoms in the past her blood pressure was high. Upon arrival to the emergency department her blood pressure is 165/89. She has not been taking her blood pressure medication as prescribed. She states this is because she has quit energy drinks and has made lifestyle changes and found taking both of her blood pressure medications (labetalol and losartan) she was having her blood pressure "bottom out". Patient has a history of hyperlipidemia, seizure disorder, anxiety and depression. She has no chest pain. She is not short of breath. Timing/Duration: day(s) (Last couple of days), intermittent Severity: mild (To moderate) Character of Deficits: none Deficits: no difficulties Baseline/Normal Cognition: alert oriented x 3 Current Cognition: alert oriented x 3 Baseline Gait: walks w/o assistance Associated Symptoms: headache, other (Intermittent dizziness) Allergies/Adverse Reactions: adhesive tape Adverse Reaction (Mild, Verified 02/26/24 14:55) Rash Home Medications: Buspirone HCl 10 mg PO BID 07/05/23 [History] Labetalol HCl 100 mg [Trandate 100 MG] 100 mg PO BID 07/05/23 [History] Losartan Potassium 50 mg [Cozaar 50 MG] 50 mg PO DAILY 07/05/23 [History] Sertraline HCl 50 mg [Zoloft 50 mg Tablet] 50 mg PO DAILY 07/05/23 [History] Trazodone HCl 100 mg PO DAILY 01/11/24 [History] Hx Tetanus, Diphtheria Vaccination/Date Given: No Hx Influenza Vaccination/Date Given: No Hx Pneumococcal Vaccination/Date Given: No Travel Risk - International Travel Have you traveled outside of the country in past 3 weeks: No - Emerging Infectious Disease Are you exhibiting symptoms associated with any current EIDs: No - Review of Systems Constitutional: No Symptoms Eyes: No Symptoms Ears, Nose, & Throat: No Symptoms Respiratory: No Symptoms Cardiac: No Symptoms Abdominal/Gastrointestinal: No Symptoms Genitourinary Symptoms: No Symptoms Musculoskeletal: No Symptoms Skin: No Symptoms Neurological: Dizziness (Intermittent), Headache Psychological: No Symptoms Endocrine: No Symptoms Hematologic/Lymphatic: No Symptoms Immunological/Allergic: No Symptoms All Other Systems: Reviewed and Negative - Past Medical History Pertinent Past Medical History: Yes Neurological History: Seizures ENT History: No Pertinent History Cardiac History: High Cholesterol, Hypertension Respiratory History: No Pertinent History Endocrine Medical History: No Pertinent History Musculoskeletal History: No Pertinent History GI Medical History: Colitis History: No Pertinent History Psycho-Social History: Anxiety, Depression Female Reproductive Disorders: No Pertinent History Other Medical History: PMH: SEE ABOVE. PSH: 2 C-SECTIONS - Past Surgical History Past Surgical History: Yes Neuro Surgical History: No Pertinent History Cardiac: No Pertinent History Respiratory: No Pertinent History Gastrointestinal: Other Genitourinary: No Pertinent History Musculoskeletal: No Pertinent History Female Surgical History: Section Other Surgical History: endoscopy to check gastric samples. (Pt states I have a history of when I eat I get sick.) pt states unknown results. colonoscopy Significant Family History: no pertinent family hx - Female History Hx Last Menstrual Period: a month ago - Social History Smoking Status: Current every day smoker How long have you smoked: 2009 Exposure to second hand smoke: No Drug Use: marijuana Patient Lives Alone: No - Social Determinants of Health Will the patient participate in the screening: Yes Do you worry about a steady place to live?: No In the past 12 months,have you had to go without utilities?: No Transportation Issues: No Has anyone in your support network made you feel unsafe?: No Have you or anyone in your house had to go without enough: No - Nursing Vital Signs Nursing Vital Signs: Initial Vital Signs Temperature 97.2 F 02/26/24 14:55 Pulse Rate 94 H 02/26/24 14:55 Respiratory Rate 16 02/26/24 14:55 Blood Pressure 165/89 02/26/24 14:55 O2 Sat by Pulse Oximetry 99 02/26/24 14:55 Pain Scale Pain Intensity 2 - [place] Coma Scale Best Eye Response ([place]): (4) open spontaneously Best Verbal Response ([place]): (5) oriented Best Motor Response ([place]): (6) obeys commands [place] Total: 15 - Physical Exam General Appearance: no apparent distress, alert, anxiety Eye Exam: bilateral eye: normal inspection, PERRL, EOMI Ears, Nose, Throat Exam: normal ENT inspection, moist mucous membranes Neck Exam: normal inspection, non-tender, supple, full range of motion Respiratory: normal breath sounds, lungs clear, airway intact, No chest tenderness, No respiratory distress Cardiovascular: regular rate/rhythm, normal heart sounds, normal peripheral pulses Gastrointestinal: soft, normal bowel sounds, No tenderness Pelvic Exam: not done Rectal Exam: not done Back Exam: normal inspection, normal range of motion, No CVA tenderness, No vertebral tenderness Extremity Exam: normal inspection, normal range of motion, pelvis stable Mental Status: alert, oriented x 3, 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 js 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 Exam: normal hearing, normal speech, PERRL Coordination/Gait: normal finger to nose, normal gait, normal cerebellar function Motor/Sensory: no motor deficit, no sensory deficit, no pronator drift Skin Exam: normal color, warm, dry SpO2 Interpretation: normal O2 Delivery: Room Air - Course Nursing assessment & vital signs reviewed: Yes EKG Interpreted by Me: RATE (87), Sinus Rhythm, NORMAL AXIS, prolonged QT interval (Borderline), NORMAL QRS, Other (No acute ischemic changes on today's twelve-lead EKG) Ordered Tests: Active Orders 24 hr Category Date Time Status EKG-ER Only STAT Care 02/26/24 15:39 Active IV Insertion STAT Care 02/26/24 15:39 Active HEAD WITHOUT CONTRAST [CT] Stat Exams 02/26/24 15:39 Completed CBC W DIFF Stat Lab 02/26/24 15:50 Completed CMP Stat Lab 02/26/24 15:50 Completed ETHYL ALCOHOL Stat Lab 02/26/24 15:50 Completed HCG QUALITATIVE, SERUM Stat Lab 02/26/24 15:50 Completed MAGNESIUM Stat Lab 02/26/24 15:50 Completed TROPONIN Q4H Lab 02/26/24 15:50 Completed TROPONIN Q4H Lab 02/26/24 19:45 Ordered TROPONIN Q4H Lab 02/26/24 23:45 Ordered UA W/RFX UR CULTURE Stat Lab 02/26/24 15:44 Completed Lab/Rad Data: Laboratory Result Diagrams 02/26/24 15:50 02/26/24 15:50 Laboratory Results 02/26/24 02/26/24 02/26/24 Range/Units 15:52 15:50 15:50 WBC (3.98-10.04) x10^3/uL RBC (3.93-5.22) x10^6/uL Hgb (11.2-15.7) g/dL Hct (34.1-44.9) % MCV (79.4-94.8) fL MCH (25.6-32.2) pg MCHC (32.2-35.5) g/dL RDW (11.7-14.4) % Plt Count (182-369) x10^3/uL MPV (9.4-12.3) fL Gran % (34.0-71.1) % Immature Gran % (Auto) (0.001-0.429) % Nucleat RBC Rel Count (0.00-0.2) % Eos # (Auto) (0.04-0.36) x10^3/uL Immature Gran # (Auto) (0.001-0.031) x10^3u/L Absolute Lymphs (auto) (1.18-3.74) x10^3/uL Absolute Monos (auto) (0.24-0.86) x10^3/uL Absolute Nucleated RBC (0.00-0.012) x10^3u/L Lymphocytes % (19.3-51.7) % Monocytes % (4.7-12.5) % Eosinophils % (0.7-5.8) % Basophils % (0.1-1.2) % Absolute Granulocytes (1.56-6.13) x10^3/uL Basophils # (0.01-0.08) x10^3/uL Sodium (135-145) mmol/L Potassium (3.5-5.1) mmol/L Chloride (98-107) mmol/L Carbon Dioxide (22-30) mmol/L Anion Gap (5-15) MEQ/L BUN (7-17) mg/dL Creatinine (0.52-1.04) mg/dL Estimated GFR ML/MIN Glucose (74-106) mg/dL Calcium (8.4-10.2) mg/dL Magnesium (1.6-2.3) mg/dL Total Bilirubin (0.2-1.3) mg/dL AST (14-36) U/L ALT (0-35) U/L Alkaline Phosphatase (38-126) U/L Troponin I < 0.012 (0.000-0.033) ng/mL Serum Total Protein (6.3-8.2) g/dL Albumin (3.5-5.0) g/dL Serum HCG, Qual NEGATIVE (NEGATIVE) Urine Color (Yellow) Urine Appearance (Clear) Urine pH (4.6-8.0) Ur Specific [place] (1.005-1.030) Urine Protein (Negative) Urine Glucose (UA) (Negative) mg/dL Urine Ketones (Negative) Urine Blood (Negative) Urine Nitrite (Negative) Urine Bilirubin (Negative) Urine Urobilinogen (0.2) mg/dL Ur Leukocyte Esterase (Negative) U Hyaline Cast (Auto) (0-2) /LPF Urine Microscopic RBC (0-5) /HPF Urine Microscopic WBC (0-5) /HPF Ur Epithelial Cells (None Seen) /HPF Urine Bacteria (None Seen) /HPF Urine Culture Reflexed (NO) Ethyl Alcohol (0-10) mg/dL Influenza Type A Ag NEGATIVE (NEGATIVE) Influenza Type B Ag NEGATIVE (NEGATIVE) RSV (PCR) NEGATIVE (NEGATIVE) SARS-CoV-2 (PCR) NEGATIVE (NEGATIVE) 02/26/24 02/26/24 02/26/24 Range/Units 15:50 15:50 15:44 WBC 11.5 H (3.98-10.04) x10^3/uL RBC 5.07 (3.93-5.22) x10^6/uL Hgb 14.1 (11.2-15.7) g/dL Hct 42.6 (34.1-44.9) % MCV 84.0 (79.4-94.8) fL MCH 27.8 (25.6-32.2) pg MCHC 33.1 (32.2-35.5) g/dL RDW 12.8 (11.7-14.4) % Plt Count 458 H (182-369) x10^3/uL MPV 11.0 (9.4-12.3) fL Gran % 64.4 (34.0-71.1) % Immature Gran % (Auto) 0.3 (0.001-0.429) % Nucleat RBC Rel Count 0.0 (0.00-0.2) % Eos # (Auto) 0.23 (0.04-0.36) x10^3/uL Immature Gran # (Auto) 0.04 H (0.001-0.031) x10^3u/L Absolute Lymphs (auto) 3.03 (1.18-3.74) x10^3/uL Absolute Monos (auto) 0.68 (0.24-0.86) x10^3/uL Absolute Nucleated RBC 0.00 (0.00-0.012) x10^3u/L Lymphocytes % 26.3 (19.3-51.7) % Monocytes % 5.9 (4.7-12.5) % Eosinophils % 2.0 (0.7-5.8) % Basophils % 1.1 (0.1-1.2) % Absolute Granulocytes 7.40 H (1.56-6.13) x10^3/uL Basophils # 0.13 H (0.01-0.08) x10^3/uL Sodium 140 (135-145) mmol/L Potassium 3.9 (3.5-5.1) mmol/L Chloride 108 H (98-107) mmol/L Carbon Dioxide 25 (22-30) mmol/L Anion Gap 11.1 (5-15) MEQ/L BUN 10 (7-17) mg/dL Creatinine 0.68 (0.52-1.04) mg/dL Estimated GFR 121.6 ML/MIN Glucose 109 H (74-106) mg/dL Calcium 9.8 (8.4-10.2) mg/dL Magnesium 1.9 (1.6-2.3) mg/dL Total Bilirubin 0.40 (0.2-1.3) mg/dL AST 27 (14-36) U/L ALT 32 (0-35) U/L Alkaline Phosphatase 72 (38-126) U/L Troponin I (0.000-0.033) ng/mL Serum Total Protein 6.8 (6.3-8.2) g/dL Albumin 4.0 (3.5-5.0) g/dL Serum HCG, Qual (NEGATIVE) Urine Color Yellow (Yellow) Urine Appearance Clear (Clear) Urine pH 8.5 A (4.6-8.0) Ur Specific [place] 1.020 (1.005-1.030) Urine Protein Trace A (Negative) Urine Glucose (UA) Negative (Negative) mg/dL Urine Ketones Negative (Negative) Urine Blood Negative (Negative) Urine Nitrite Negative (Negative) Urine Bilirubin Negative (Negative) Urine Urobilinogen 0.2 (0.2) mg/dL Ur Leukocyte Esterase Negative (Negative) U Hyaline Cast (Auto) NONE SEEN (0-2) /LPF Urine Microscopic RBC 3-5 (0-5) /HPF Urine Microscopic WBC 0-2 (0-5) /HPF Ur Epithelial Cells Rare (None Seen) /HPF Urine Bacteria Rare A (None Seen) /HPF Urine Culture Reflexed NO (NO) Ethyl Alcohol < 10 (0-10) mg/dL Influenza Type A Ag (NEGATIVE) Influenza Type B Ag (NEGATIVE) RSV (PCR) (NEGATIVE) SARS-CoV-2 (PCR) (NEGATIVE) - Progress Progress: improved Progress Note: 02/26/24 17:57 My medical decision making and the assignment of moderate complexity to this patient's medical issue today is based on review of the patient's past medical history, review of the patient's medication list, reviewed patient drug allergy list, history present illness and physical findings on examination. The workup in this patient today includes CT scan of the head, CBC, CMP, troponin level, twelve-lead EKG, viral swabs, urinalysis, test. Differential diagnosis includes but is not limited to acute intracranial abnormality, vertigo, inner ear infection, hypertension, arrhythmia, myocardial infarction, dehydration, urinary tract infection, I interpreted the patient's laboratory data. There is no evidence of any acute, emergent medical issue at this time. CT scan of the head was interpreted by the radiologist and I reviewed the i mpression. The impression states normal CT scan of the head without contrast. Counseled pt/family regarding: lab results, diagnosis, need for follow-up, rad results Medical Desision Making - Diagnostic Testing Diagnostic test were ordered, analyzed, and reviewed by me: Yes Radiological Interpretation: Reviewed by me, Teleradiologist Report - Risk of complications The pt has a mod risk of morbidity or mortality based on: Need for prescription drug management - Departure Departure Disposition: Home Clinical Impression: Dizziness, Hypertension, Noncompliance with medication regimen Condition: Stable Critical Care Time: No Referrals: SHERIN REED SIFTING OPERATOR [Primary Care Provider] - Follow up/PCP as directed Additional Instructions: Take your blood pressure medication as prescribed. Keep a morning noon and night daily log of your blood pressure readings for 3 days. Call your prescribing provider tomorrow morning, 02/27/2024, to make arrangements for a follow-up appointment to be seen in the next 3 to 5 days.
[2024-02-26 15:10] VITALS: TEMP 97.2
[2024-02-26 15:56] LABS: BASOPHIL % 1.1 % (0.1-1.2); Basophil (Absolute #) 0.13 x10^3/uL (0.01-0.08); Eosinophil (Absolute #) 0.23 x10^3/uL (0.04-0.36); Hematocrit 42.6 % (34.1-44.9); Hemoglobin 14.1 g/dL (11.2-15.7); IMMATURE GRAN # 0.04 x10^3u/L (0.001-0.031); IMMATURE GRAN % 0.3 % (0.001-0.429); Lymphocyte (Absolute #) 3.03 x10^3/uL (1.18-3.74); Lymphocytes % 26.3 % (19.3-51.7); Mean Corpuscular Hemoglobin 27.8 pg (25.6-32.2); Mean Corpuscular Hgb Concent. 33.1 g/dL (32.2-35.5); Monocyte (Absolute #) 0.68 x10^3/uL (0.24-0.86); Monocytes % 5.9 % (4.7-12.5); Neutrophil % 64.4 % (34.0-71.1); Platelet Count 458 x10^3/uL (182-369); Red Blood Count 5.07 x10^6/uL (3.93-5.22); Red Cell Distribution Width 12.8 % (11.7-14.4); White Blood Count 11.5 x10^3/uL (3.98-10.04)
[2024-02-26 16:02] VITALS: RESP 16
[2024-02-26 16:06] LABS: HCG SERUM TEST NEGATIVE (NEGATIVE)
[2024-02-26 16:10] LABS: ALKALINE PHOSPHATASE 72 U/L (38-126); ANION GAP 11.1 MEQ/L (5-15); BLOOD UREA NITROGEN 10 mg/dL (7-17); CHLORIDE 108 mmol/L (98-107); Calcium 9.8 mg/dL (8.4-10.2); Carbon Dioxide 25 mmol/L (22-30); Creatinine 1 0.68 mg/dL (0.52-1.04); EST GLOMERULAR FILTRATION RATE 121.6 ML/MIN; ETHYL ALCOHOL < 10 mg/dL (0-10); Glucose 109 mg/dL (74-106); MAGNESIUM 1.9 mg/dL (1.6-2.3); Potassium 3.9 mmol/L (3.5-5.1); SGOT/AST 27 U/L (14-36); SGPT/ALT 32 U/L (0-35); SODIUM 140 mmol/L (135-145); Total Protein 6.8 g/dL (6.3-8.2)
[2024-02-26 16:34] LABS: Appearance Clear (Clear); Bacteria Rare /HPF (None Seen); Bilirubin Negative (Negative); Blood Negative (Negative); Epithelial Cells Rare /HPF (None Seen); Glucose, Urine Negative (Negative); Hyaline Casts NONE SEEN /LPF (0-2); Ketones Negative (Negative); Leukocyte Esterase Negative (Negative); Nitrite Negative (Negative); Ph 8.5 (4.6-8.0); Protein,Urine Dip Trace (Negative); Urobilinogen 0.2 mg/dL (0.2); WBC 0-2 /HPF (0-5)
[2024-02-26 16:34] LABS: INFLUENZA A NEGATIVE (NEGATIVE); INFLUENZA B NEGATIVE (NEGATIVE); RESPIRATORY SYNCTIAL VIRUS NEGATIVE (NEGATIVE); SARS-CoV-2 Xpert Express NEGATIVE (NEGATIVE)
--- NOTE | 2024-02-26 16:59 | XRAY ---
Indication: Dizziness. Multiple contiguous axial images obtained through the head without contrast. Comparison: December 09, 2020 Normal appearing brain parenchyma, ventricles, and bony calvarium. Visualized paranasal sinuses and mastoid air cells are clear. Impression: Continued normal CT head without contrast exam.
[2024-02-26] MEDS: ANTIVERT 25 MG PO ONE (18:01)
[2024-02-26] MEDS ORDERED: ANTIVERT 25 MG ONE (18:01)
[2024-02-26 18:06] VITALS: BP 155/80; PULSE 76; O2SAT 99
== END 2024-02-26 18:19 | disposition home or self-care (01) ==
LOC: ED 14:47
DX: R42 Dizziness and giddiness (principal); R51.9 Headache, unspecified; I10 Essential (primary) hypertension; Z91.148 Patient's other noncompliance with medication regimen for other reason; Z79.899 Other long term (current) drug therapy; F17.200 Nicotine dependence, unspecified, uncomplicated
CPT/HCPCS: 0241U; 36000; 36415; 70450; 80053; 81001; 82077; 83735; 84484; 84703; 85025; 93005; 99285; 99284; A9270-GY

== ENCOUNTER 2024-06-16 11:37 | Emergency (ER) | payer OTHER ==
--- NOTE | 2024-06-16 11:39 | ERPHSYRPT ---
- History of Present Illness Time Seen by Provider: 06/16/24 11:39 Source: patient, family Exam Limitations: no limitations Physician History: This is a 29-year-old white female patient arrives via private vehicle to be seen for complaint of at least 2 days of global headache and back pain that began this morning without fall or injury. Patient has not seen a neurologist recently. Patient's last menstrual period is 06/09/2024. Patient has a history of hypertension and stopped her high blood on her own. She does not recall the name of this medication. Patient has a history of seizure disorder, colitis, anxiety, depression and hypertension. She denies chest pain. She denies shortness of breath. She has no abdominal pain Timing/Duration: today (Low back pain began today), day(s) (Headache began 2 days ago) Quality: sharpness (Back pain) Head Pain Location: global Severity of Pain-Max: moderate (Headache) Severity of Pain-Current: moderate Recent Head Trauma: frequent headaches, chronic headaches Modifying Factors: Improves With: exposure to light, noise Previous symptoms: same symptoms as today, no recent treatment Allergies/Adverse Reactions: adhesive tape Adverse Reaction (Mild, Verified 02/26/24 14:55) Rash Home Medications: No Reportable Medications [No Reported Medications] 06/16/24 [History] Hx Tetanus, Diphtheria Vaccination/Date Given: No Hx Influenza Vaccination/Date Given: No Hx Pneumococcal Vaccination/Date Given: No Travel Risk - International Travel Have you traveled outside of the country in past 3 weeks: No - Emerging Infectious Disease Are you exhibiting symptoms associated with any current EIDs: No Symptoms: Headaches/Body Aches/ - Review of Systems Constitutional: No Symptoms Eyes: No Symptoms Ears, Nose, & Throat: No Symptoms Respiratory: No Symptoms Cardiac: No Symptoms Abdominal/Gastrointestinal: No Symptoms Genitourinary Symptoms: No Symptoms Musculoskeletal: Back Pain, No Fall, No Injury Skin: No Symptoms Neurological: Headache Psychological: No Symptoms Endocrine: No Symptoms Hematologic/Lymphatic: No Symptoms Immunological/Allergic: No Symptoms All Other Systems: Reviewed and Negative - Past Medical History Pertinent Past Medical History: Yes Neurological History: Seizures ENT History: No Pertinent History Cardiac History: High Cholesterol, Hypertension Respiratory History: No Pertinent History Endocrine Medical History: No Pertinent History Musculoskeletal History: No Pertinent History GI Medical History: Colitis History: No Pertinent History Psycho-Social History: Anxiety, Depression Female Reproductive Disorders: No Pertinent History Other Medical History: PMH: SEE ABOVE. PSH: 2 C-SECTIONS - Past Surgical History Past Surgical History: Yes Neuro Surgical History: No Pertinent History Cardiac: No Pertinent History Respiratory: No Pertinent History Gastrointestinal: Other Genitourinary: No Pertinent History Musculoskeletal: No Pertinent History Female Surgical History: Section Other Surgical History: endoscopy to check gastric samples. (Pt states I have a history of when I eat I get sick.) pt states unknown results. colonoscopy Significant Family History: no pertinent family hx - Female History Hx Last Menstrual Period: a month ago - Social History Smoking Status: Current every day smoker How long have you smoked: 2009 Exposure to second hand smoke: No Drug Use: marijuana Patient Lives Alone: No - Social Determinants of Health Will the patient participate in the screening: Yes Do you worry about a steady place to live?: No In the past 12 months,have you had to go without utilities?: No Transportation Issues: No Has anyone in your support network made you feel unsafe?: No Have you or anyone in your house had to go w/o enough food: No - Nursing Vital Signs Nursing Vital Signs: Initial Vital Signs Temperature 96.7 F 06/16/24 11:44 Pulse Rate 100 H 06/16/24 11:44 Respiratory Rate 20 06/16/24 11:44 Blood Pressure 186/109 06/16/24 11:44 O2 Sat by Pulse Oximetry 97 06/16/24 11:44 Pain Scale Pain Intensity 2 - Physical Exam General Appearance: no apparent distress, alert, anxiety, obese Eye Exam: PERRL/EOMI, eyes nml inspection Ears, Nose, Throat Exam: normal ENT inspection, moist mucous membranes Neck Exam: normal inspection, non-tender, supple, full range of motion Respiratory Exam: normal breath sounds, lungs clear, airway intact, No chest tenderness, No respiratory distress Cardiovascular Exam: regular rate/rhythm, normal heart sounds, normal peripheral pulses Gastrointestinal/Abdominal Exam: soft, normal bowel sounds, No tenderness Back Exam: normal inspection, normal range of motion, No CVA tenderness, No vertebral tenderness Extremity Exam: normal inspection, normal range of motion, pelvis stable Mental Status Exam: alert, oriented x 3, 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 No acute ischemia on today's twelve- lead EKG.) Ordered Tests: Active Orders 24 hr Category Date Time Status Wire Splicer STAT Care 06/16/24 12:18 Active IV Insertion STAT Care 06/16/24 12:18 Active Pulse Oximetry (ED) STAT Care 06/16/24 12:18 Active HEAD WITHOUT CONTRAST [CT] Stat Exams 06/16/24 12:18 Completed CBC W DIFF Stat Lab 06/16/24 12:20 Completed CMP Stat Lab 06/16/24 12:20 Completed HCG QUALITATIVE, SERUM Stat Lab 06/16/24 12:20 Completed MAGNESIUM Stat Lab 06/16/24 12:20 Completed MONO SCREEN Stat Lab 06/16/24 12:20 Completed UA W/RFX UR CULTURE Stat Lab 06/16/24 12:26 Completed Medication Summary Discontinued Medications Generic Name Dose Route Start Last Admin Trade Name Freq PRN Reason Stop Dose Admin Labetalol HCl 10 mg 06/16/24 12:31 06/16/24 12:38 Labetalol Hcl 20 Mg/4 Ml Disp.Syringe IV 06/16/24 12:32 10 mg STAT ONE Administration Labetalol HCl Confirm 06/16/24 12:36 Labetalol Hcl 20 Mg/4 Ml Disp.Syringe Administered 06/16/24 12:37 Dose 20 mg IV .STK-MED ONE Lab/Rad Data: Laboratory Result Diagrams 06/16/24 12:20 06/16/24 12:20 Laboratory Results 06/16/24 06/16/24 06/16/24 Range/Units 12:53 12:26 12:20 WBC (3.98-10.04) x10^3/uL RBC (3.93-5.22) x10^6/uL Hgb (11.2-15.7) g/dL Hct (34.1-44.9) % MCV (79.4-94.8) fL MCH (25.6-32.2) pg MCHC (32.2-35.5) g/dL RDW (11.7-14.4) % Plt Count (182-369) x10^3/uL MPV (9.4-12.3) fL Gran % (34.0-71.1) % Immature Gran % (Auto) (0.001-0.429) % Nucleat RBC Rel Count (0.00-0.2) % Eos # (Auto) (0.04-0.36) x10^3/uL Immature Gran # (Auto) (0.001-0.031) x10^3u/L Absolute Lymphs (auto) (1.18-3.74) x10^3/uL Absolute Monos (auto) (0.24-0.86) x10^3/uL Absolute Nucleated RBC (0.00-0.012) x10^3u/L Lymphocytes % (19.3-51.7) % Monocytes % (4.7-12.5) % Eosinophils % (0.7-5.8) % Basophils % (0.1-1.2) % Absolute Granulocytes (1.56-6.13) x10^3/uL Basophils # (0.01-0.08) x10^3/uL Sodium (135-145) mmol/L Potassium (3.5-5.1) mmol/L Chloride (98-107) mmol/L Carbon Dioxide (22-30) mmol/L Anion Gap (5-15) MEQ/L BUN (7-17) mg/dL Creatinine (0.52-1.04) mg/dL Estimated GFR ML/MIN Glucose (74-106) mg/dL Calcium (8.4-10.2) mg/dL Magnesium 1.6 (1.6-2.3) mg/dL Total Bilirubin (0.2-1.3) mg/dL AST (14-36) U/L ALT (0-35) U/L Alkaline Phosphatase (38-126) U/L Serum Total Protein (6.3-8.2) g/dL Albumin (3.5-5.0) g/dL Serum HCG, Qual (NEGATIVE) Urine Color Yellow (Yellow) Urine Appearance Clear (Clear) Urine pH 8.5 A (4.6-8.0) Ur Specific Flanagan 1.020 (1.005-1.030) Urine Protein Negative (Negative) Urine Glucose (UA) Negative (Negative) mg/dL Urine Ketones Negative (Negative) Urine Blood Negative (Negative) Urine Nitrite Negative (Negative) Urine Bilirubin Negative (Negative) Urine Urobilinogen 0.2 (0.2) mg/dL Ur Leukocyte Esterase Negative (Negative) U Hyaline Cast (Auto) NONE SEEN (0-2) /LPF Urine Microscopic RBC 6-10 A (0-5) /HPF Urine Microscopic WBC 0-2 (0-5) /HPF Ur Epithelial Cells Few (None Seen) /HPF Urine Bacteria Few A (None Seen) /HPF Urine Culture Reflexed NO (NO) Monoscreen (NEGATIVE) Influenza Type A Ag NEGATIVE (NEGATIVE) Influenza Type B Ag NEGATIVE (NEGATIVE) RSV (PCR) NEGATIVE (NEGATIVE) SARS-CoV-2 (PCR) NEGATIVE (NEGATIVE) 06/16/24 06/16/24 06/16/24 Range/Units 12:20 12:20 12:20 WBC 12.6 H (3.98-10.04) x10^3/uL RBC 4.90 (3.93-5.22) x10^6/uL Hgb 13.3 (11.2-15.7) g/dL Hct 40.8 (34.1-44.9) % MCV 83.3 (79.4-94.8) fL MCH 27.1 (25.6-32.2) pg MCHC 32.6 (32.2-35.5) g/dL RDW 12.8 (11.7-14.4) % Plt Count 383 H (182-369) x10^3/uL MPV 11.0 (9.4-12.3) fL Gran % 87.4 H (34.0-71.1) % Immature Gran % (Auto) 0.5 H (0.001-0.429) % Nucleat RBC Rel Count 0.0 (0.00-0.2) % Eos # (Auto) 0.04 (0.04-0.36) x10^3/uL Immature Gran # (Auto) 0.06 H (0.001-0.031) x10^3u/L Absolute Lymphs (auto) 0.25 L (1.18-3.74) x10^3/uL Absolute Monos (auto) 1.14 H (0.24-0.86) x10^3/uL Absolute Nucleated RBC 0.00 (0.00-0.012) x10^3u/L Lymphocytes % 2.0 L (19.3-51.7) % Monocytes % 9.1 (4.7-12.5) % Eosinophils % 0.3 L (0.7-5.8) % Basophils % 0.7 (0.1-1.2) % Absolute Granulocytes 10.97 H (1.56-6.13) x10^3/uL Basophils # 0.09 H (0.01-0.08) x10^3/uL Sodium 139 (135-145) mmol/L Potassium 3.9 (3.5-5.1) mmol/L Chloride 103 (98-107) mmol/L Carbon Dioxide 24 (22-30) mmol/L Anion Gap 16.0 H (5-15) MEQ/L BUN 9 (7-17) mg/dL Creatinine 0.63 (0.52-1.04) mg/dL Estimated GFR 123.8 ML/MIN Glucose 112 H (74-106) mg/dL Calcium 9.2 (8.4-10.2) mg/dL Magnesium (1.6-2.3) mg/dL Total Bilirubin 0.40 (0.2-1.3) mg/dL AST 63 H (14-36) U/L ALT 72 H (0-35) U/L Alkaline Phosphatase 73 (38-126) U/L Serum Total Protein 7.3 (6.3-8.2) g/dL Albumin 4.4 (3.5-5.0) g/dL Serum HCG, Qual NEGATIVE (NEGATIVE) Urine Color (Yellow) Urine Appearance (Clear) Urine pH (4.6-8.0) Ur Specific Flanagan (1.005-1.030) Urine Protein (Negative) Urine Glucose (UA) (Negative) mg/dL Urine Ketones (Negative) Urine Blood (Negative) Urine Nitrite (Negative) Urine Bilirubin (Negative) Urine Urobilinogen (0.2) mg/dL Ur Leukocyte Esterase (Negative) U Hyaline Cast (Auto) (0-2) /LPF Urine Microscopic RBC (0-5) /HPF Urine Microscopic WBC (0-5) /HPF Ur Epithelial Cells (None Seen) /HPF Urine Bacteria (None Seen) /HPF Urine Culture Reflexed (NO) Monoscreen NEGATIVE (NEGATIVE) Influenza Type A Ag (NEGATIVE) Influenza Type B Ag (NEGATIVE) RSV (PCR) (NEGATIVE) SARS-CoV-2 (PCR) (NEGATIVE) - Progress Progress: improved, re-examined Air Movement: good Progress Note: 06/16/24 12:58 Medical decision making of the assignment of moderate complexity of this patient's medical issue today is based on review of the patient's past medical history, review the patient's medication list, reviewed patient drug allergy list, history present illness and physical findings on examination. The workup in this patient includes placement of intravenous line, infusion of labetalol 10 mg IV, CBC, CMP, CT scan of the head, viral swabs, monotest, urinalysis, test, twelve-lead EKG. Differential diagnosis includes but is not limited to urinary tract infection, dehydration, acute intracranial abnormality, electrolyte abnormalities, viral illness, arrhythmia 06/16/24 14:05 I interpreted the patient's laboratory data results. Based on the laboratory data results there are no acute, emergent medical issues. The CT scan of the head without contrast was interpreted by the radiologist and I reviewed the impression. The impression states a normal CT scan of the head without contrast. The patient is complaining of headache and hip pain. She did not fall and injure her head or hip. We will provide her with medication to help with her pain. Her blood pressure is slowly improving with a systolic blood pressure most recently at 172. Blood Culture(s) Obtained: No Antibiotics given: No Counseled pt/family regarding: lab results, diagnosis, need for follow-up, rad results Medical Desision Making - Diagnostic Testing Diagnostic test were ordered, analyzed, and reviewed by me: Yes Radiological Interpretation: Reviewed by me, Teleradiologist Report - Risk of complications Low Risk: Low risk of morbidity from additional dx testing or treatment - Departure Departure Disposition: Home Clinical Impression: Hypertension, Headache, Noncompliance with medication regimen Condition: Stable Critical Care Time: No Referrals: SHERIN REED [facility]KER [Primary Care Provider] - Follow up/PCP as directed Additional Instructions: Drink plenty of fluids. Use Tylenol and ibuprofen for pain control. Call your primary care provider today, 06/16/2024, to make arrangements for follow-up appointment to be seen in the next 2 to 3 days to discuss your blood pressure medication.
[2024-06-16 12:27] LABS: Absolute Neutrophil Ct (ANC) 10.97 x10^3/uL (1.56-6.13); BASOPHIL % 0.7 % (0.1-1.2); Basophil (Absolute #) 0.09 x10^3/uL (0.01-0.08); Eosinophil % 0.3 % (0.7-5.8); Eosinophil (Absolute #) 0.04 x10^3/uL (0.04-0.36); Hematocrit 40.8 % (34.1-44.9); Hemoglobin 13.3 g/dL (11.2-15.7); IMMATURE GRAN # 0.06 x10^3u/L (0.001-0.031); IMMATURE GRAN % 0.5 % (0.001-0.429); Lymphocyte (Absolute #) 0.25 x10^3/uL (1.18-3.74); Mean Cell Volume 83.3 fL (79.4-94.8); Mean Corpuscular Hemoglobin 27.1 pg (25.6-32.2); Mean Corpuscular Hgb Concent. 32.6 g/dL (32.2-35.5); Monocyte (Absolute #) 1.14 x10^3/uL (0.24-0.86); Monocytes % 9.1 % (4.7-12.5); Neutrophil % 87.4 % (34.0-71.1); Platelet Count 383 x10^3/uL (182-369); Red Cell Distribution Width 12.8 % (11.7-14.4); White Blood Count 12.6 x10^3/uL (3.98-10.04)
[2024-06-16 12:34] LABS: HCG SERUM TEST NEGATIVE (NEGATIVE)
[2024-06-16 12:35] LABS: ALBUMIN 4.4 g/dL (3.5-5.0); BILIRUBIN,TOTAL 0.4 mg/dL (0.2-1.3); Calcium 9.2 mg/dL (8.4-10.2); Creatinine 1 0.63 mg/dL (0.52-1.04); EST GLOMERULAR FILTRATION RATE 123.8 ML/MIN; Potassium 3.9 mmol/L (3.5-5.1); Total Protein 7.3 g/dL (6.3-8.2)
[2024-06-16] MEDS ORDERED: TRANDATE 20 MG/4 ML SYRINGE IV ONE (12:36)
[2024-06-16] MEDS: TRANDATE 20 MG/4 ML SYRINGE IV ONE (12:38)
[2024-06-16 12:45] VITALS: TEMP 98.2
[2024-06-16 13:10] LABS: Appearance Clear (Clear); Bilirubin Negative (Negative); Blood Negative (Negative); Glucose, Urine Negative (Negative); Hyaline Casts NONE SEEN /LPF (0-2); Ketones Negative (Negative); Leukocyte Esterase Negative (Negative); Nitrite Negative (Negative); Ph 8.5 (4.6-8.0); Protein,Urine Dip Negative (Negative); Urobilinogen 0.2 mg/dL (0.2); WBC 0-2 /HPF (0-5)
[2024-06-16 13:11] LABS: Epithelial Cells Few /HPF (None Seen)
[2024-06-16 13:13] LABS: Bacteria Few /HPF (None Seen)
[2024-06-16 13:34] LABS: INFLUENZA A NEGATIVE (NEGATIVE); INFLUENZA B NEGATIVE (NEGATIVE); RESPIRATORY SYNCTIAL VIRUS NEGATIVE (NEGATIVE); SARS-CoV-2 Xpert Express NEGATIVE (NEGATIVE)
--- NOTE | 2024-06-16 13:43 | XRAY ---
Indication: Headache 2 days. History of migraines. Multiple contiguous axial images obtained through the head without contrast. Comparison: February 26, 2024 Normal appearing brain parenchyma, ventricles, and bony calvarium. Visualized paranasal sinuses and mastoid air cells are clear. Impression: Continued normal CT head without contrast exam.
[2024-06-16] MEDS ORDERED: Hydromorphone 1 mg/ml Injection ONE (14:10)
[2024-06-16] MEDS ORDERED: BENADRYL 50 MG/ML ONE (14:10)
[2024-06-16] MEDS ORDERED: TORAdol 30 mg Injection ONE (14:10)
[2024-06-16] MEDS ORDERED: Compazine 10 MG/2 ML ONE (14:11)
[2024-06-16] MEDS: Compazine 10 MG/2 ML IV ONE (14:14)
[2024-06-16] MEDS: TORAdol 30 mg Injection IV ONE (14:17)
[2024-06-16] MEDS: BENADRYL 50 MG/ML IV ONE (14:19)
[2024-06-16] MEDS: Hydromorphone 1 mg/ml Injection IV ONE (14:21)
[2024-06-16 14:43] LABS: Slide Review 1 YES
[2024-06-16 14:59] VITALS: BP 158/98; PULSE 85; RESP 18; O2SAT 97
== END 2024-06-16 15:01 | disposition home or self-care (01) ==
LOC: ED 11:37
DX: I10 Essential (primary) hypertension (principal); R51.9 Headache, unspecified; Z91.148 Patient's other noncompliance with medication regimen for other reason; M54.9 Dorsalgia, unspecified; E78.5 Hyperlipidemia, unspecified; Z72.0 Tobacco use
CPT/HCPCS: 0241U; 36415; 70450; 80053; 81001; 83735; 84703; 85025; 86308; 93005; 93041; 94760; 96374; 96375; 99285; 99284; J1171; J1200; J1885